=== PATIENT | male | born 1945 | race Caucasian/White ===

== ENCOUNTER 2020-03-25 10:17 | Emergency (ER) | payer MEDICARE, MEDICAID, SELFPAY ==
--- NOTE | ~2020-03-25 | XR_ITS ---
XR knee RT 3V DATE: 03/25/2020 11:51 INDICATION: Generalized pain, swelling for 2 weeks TECHNIQUE: 4 views including crosstable lateral COMPARISON: None FINDINGS: No fracture or dislocation, periosteal reaction or bone destruction or joint effusion is ev ident. No radiopaque intra-articular loose body or chondral calcinosis. Joint spaces are relatively p reserved. IMPRESSION: No significant radiographic abnormality Reviewed, dictated and finalized at location A.
--- NOTE | ~2020-03-25 | US_ITS ---
EXAMINATION: US venous doppler LE EXAM DATE: 03/25/2020 11:43 INDICATION: Bilateral calf pain. TECHNIQUE: Multiple grayscale, color flow and Doppler images of the lower extremity deep venous syste ms bilaterally were obtained and reviewed. Comparison is made to prior examination from 04/04/2018. FINDINGS: Right side: The right common femoral, femoral and profunda veins demonstrate normal color flow, respi ratory variation, augmentation and compressibility. Compressibility, color flow confirmed within the right popliteal, posterior tibial, peroneal, and greater saphenous veins. Lemos's cyst measuring 4. 0 x 0.6 x 2.3 cm. Left side: The left common femoral, femoral and profunda veins demonstrate normal color flow, respira tory variation, augmentation and compressibility. Compressibility, color flow confirmed within the l eft popliteal, posterior tibial, peroneal, and greater saphenous veins. IMPRESSION: 1. No lower extremity deep venous thrombosis bilaterally. Reviewed, dictated and finalized at location G.
[2020-03-25 10:48] VITALS: BP 172/100; PULSE 62; RESP 20; TEMP 36.7; O2SAT 98
--- NOTE | 2020-03-25 11:06 | ED.EXTPRO ---
HPI - Extremity Problem General Chief complaint: Extremity Problem,Nontraumatic Stated complaint: right knee pain Time Seen by Provider: 03/25/20 10:55 Source: patient Mode of arrival: ambulatory Limitations: no limitations History of Present Illness HPI Narrative: 74-year-old man comes in today complaining of right medial knee pain and right calf pain that has been present for last 2 weeks. Patient denies any injury. He has had no swelling, fever, chills, or prior similar episodes. He has had no respiratory complaints, sick contacts or recent travel. His history of rheumatoid arthritis and a family history of DVTs. MD Complaint: extremity pain Onset (ago): week(s) (2) Pain Consistency: constant Location: right, knee and other (calf) Quality: aching and sharp Radiation: none Relieving factors: rest Exacerbating factors: range of motion, weight bearing and palpation Associated symptoms: denies other symptoms Context: history of gout Related Data Home Medications Medication Instructions Recorded Confirmed allopurinol 300 mg PO DAILY 03/25/20 03/25/20 aspirin [Adult Low Dose Aspirin] 81 mg PO DAILY 03/25/20 03/25/20 calcitriol 0.25 mcg PO EVERY OTHER DAY 03/25/20 03/25/20 carvedilol 25 mg PO BID 03/25/20 03/25/20 clopidogrel 75 mg PO DAILY 03/25/20 03/25/20 furosemide 40 mg PO DAILY 03/25/20 03/25/20 melatonin 10 mg PO HS PRN 03/25/20 03/25/20 mirtazapine 15 mg PO PRN PRN 03/25/20 03/25/20 montelukast 10 mg PO DAILY 03/25/20 03/25/20 pravastatin 40 mg PO DAILY 03/25/20 03/25/20 tamsulosin 0.4 mg PO DAILY 03/25/20 03/25/20 telmisartan 40 mg PO DAILY 03/25/20 03/25/20 triamcinolone acetonide 0.1 % TOPICAL DAILY 03/25/20 03/25/20 vitamin B complex [B 1 tablet PO DAILY 03/25/20 03/25/20 Complex-Vitamin B12] Allergies Allergy/AdvReac Type Severity Reaction Status Date / Time No Known Allergies Allergy Unverified 04/03/18 22:31 Review of Systems Constitutional: Constitutional: Denies chills, Denies fatigue and Denies fever(s) Eyes: Eyes: Denies change in vision and Denies photophobia ENT: Denies dysphagia, Denies nasal congestion and Denies sore throat Cardiovascular: Cardiovascular: Denies chest pain and Denies radiating jaw, neck or arm pain Respiratory: Respiratory: Denies cough, Denies dyspnea and Denies wheezing Gastrointestinal: Gastrointestinal: Denies abdominal pain, Denies nausea and Denies vomiting Genitourinary: Genitourinary: Denies hematuria, Denies dysuria and Denies urinary frequency Musculoskeletal: Musculoskeletal: Reports as per HPI, Reports arthralgias and Denies joint swelling Integumentary/Breasts: Skin/Breast: Denies pruritus, Denies erythema and Denies rash Neurologic: Denies vertigo, Denies dizziness and Denies numbness Psychiatric: Psychiatric: Denies anxiety and Denies depression Endocrine: Endocrine: Denies polydipsia and Denies polyuria Hematologic/Lymphatic: Hematologic/Lymphatic: Denies easy bleeding and Denies easy bruising Allergic/Immunologic: Allergic/Immunologic: Denies lip swelling and Denies wheezing PMFSH Past Medical History Medical History Congestive heart failure Coronary artery disease Gout Hypertension Polycystic kidney disease Rheumatoid arthritis Surgical History Surgical History H/O inguinal hernia repair History of coronary artery stent placement Family History Family History (Updated 07/26/14 @ 07:13 by DOCTOR UNKNOWN) Mother Hypertension Family history of lung cancer Family history of coronary artery disease Sibling Family history of polycystic kidney disease Father Family history of elevated blood lipids Family history of coronary artery disease Patient's father is Social History Social History Smoking status: Never smoker Alcohol intake: c
[2020-03-25 11:17] LABS: Basophils Absolute Auto 0.03 K/mm3 (0.00-0.10); Basophils Percent Auto 0.3 % (0.0-1.0); Eosinophils Percent Auto 4.5 % (1.0-6.0); Hematocrit 34.5 % (37.0-46.0); Hemoglobin 10.9 g/dL (12.4-15.3); Immature Granulocyte Absolute 0.07 K/mm3 (0.00-0.00); Immature Granulocyte Percent A 0.8 % (0.0-0.0); Lymphocytes Absolute Auto 0.99 K/mm3 (1.10-4.50); Mean Corpuscular HGB Conc 31.6 g/dL (32.0-36.0); Mean Corpuscular Hemoglobin 30.1 pg (27.0-31.0); Mean Corpuscular Volume 95.3 fL (78.0-102.0); Mean Platelet Volume 9.4 fl (8.7-11.0); Monocytes Absolute Auto 0.67 K/mm3 (0.10-0.90); Monocytes Percent Auto 7.5 % (2.0-11.0); Neutrophils Absolute Auto 6.8 K/mm3 (1.7-7.2); Neutrophils Percent Auto 75.9 % (50.0-70.0); Platelet Count Result 165 K/mm3 (150-420); Red Blood Count 3.62 M/mm3 (4.70-6.10); Red Cell Distribution Width 14.7 % (11.6-14.4)
[2020-03-25] MEDS: ACETAMINOPHEN 500 MG TABLET 1000 MG PO (11:28)
[2020-03-25 11:36] LABS: Alanine Aminotransferase 18 U/L (16-63); Albumin Level 3.1 g/dL (3.4-5.0); Alkaline Phosphatase 90 U/L (46-116); Aspartate Amino Transferase 15 U/L (15-37); Bilirubin,Total 0.2 mg/dL (0.00-1.00); Blood Urea Nitrogen 37 mg/dL (7-18); CRP 1.5 mg/dL (0.0-0.9); Calcium 8.3 mg/dL (8.5-10.1); Carbon Dioxide 31 mmol/L (21-32); Estimated Glomerular Filt Rate 27; Glucose 103 mg/dL (70-99); Total Protein 6.6 g/dL (6.4-8.2)
[2020-03-25 11:38] LABS: Partial Thromboplastin Time 26.2 SEC (22.3-31.6); Prothrombin Time 10.7 Seconds (9.64-11.0)
[2020-03-25 11:48] LABS: Anion Gap 9.7 mmol/L (7-16); Chloride 108 mmol/L (98-108); Osmolality Calculated 306 mOsm/kg (285-295); Potassium 4.7 mmol/L (3.5-5.1); Sodium 144 mmol/L (136-145)
[2020-03-25 12:19] LABS: Erythrocyte Sedimentation Rate 32 mm/hr (0-20)
[2020-03-25 12:31] VITALS: RESP 16
[2020-03-28 13:35] LABS: Uric Acid 5.7 mg/dL (3.5-7.2)
== END 2020-03-25 12:28 | disposition home or self-care (01) ==
PROVIDERS: Emergency Provider Emergency Medicine; PCP Internal Medicine
DX: M25.561 Pain in right knee (principal); I50.9 Heart failure, unspecified; I25.10 Atherosclerotic heart disease of native coronary artery without angina pectoris; I10 Essential (primary) hypertension; M06.9 Rheumatoid arthritis, unspecified; M79.661 Pain in right lower leg; M10.9 Gout, unspecified
CPT/HCPCS: 36415; 73562; 80053; 84550; 85025; 85610; 85652; 85730; 86140; 93970; 99283; 99284

== ENCOUNTER 2020-04-06 07:56 | Outpatient (CLI) | payer MEDICARE, MEDICAID, SELFPAY ==
--- NOTE | ~2020-04-06 | MR_ITS ---
EXAMINATION: MR knee RT wo con DATE: 04/06/2020 09:13 INDICATION: Right knee pain and swelling. TECHNIQUE: Magnetic resonance imaging (MRI) of the right knee was performed without intravenous contr ast. Sequences included axial PD-weighted FS FSE, coronal PD-weighted FSE and PD-weighted FS FSE, sag ittal PD-weighted FSE, and sagittal T2-weighted FS FSE. COMPARISON: Right knee radiographs 03/25/2020 FINDINGS: Medial compartment: There is a complex tear involving body and posterior horn of medial meniscus. There is cartilage surf dirk irregularity of tibial condyle and femoral condyle. There is a subchondral insufficiency fracture of medial tibial condyle with low signal fracture line and surrounding bone marrow edema. There are tiny osteophytes. Lateral compartment: Lateral meniscus is normal. Lateral compartment cartilage is normal. Patellofemoral compartment: There is cartilage surface irregularity of patella and trochlea. Ligaments and tendons: Anterior and posterior cruciate ligaments are normal. Medial collateral ligament is intact. There are changes of prior sprain of fibular collateral ligament characterized by thickening and increased sig nal intensity. There is mild patellar tendinopathy. Fluid: There is a small knee joint effusion. There is a large Lemos's cyst. There is moderate prepatellar an d superficial infrapatellar bursitis. IMPRESSION: 1. Subchondral insufficiency fracture of medial tibial condyle. 2. Mild chondrosis of medial and patellofemoral compartments. 3. Complex tear of medial meniscus. 4. Small knee joint effusion. 5. Large Lemos's cyst. Reviewed, dictated and finalized at location A.
== END 2020-04-06 07:57 | disposition home or self-care (01) ==
LOC: CHSIMG 07:58
PROVIDERS: PCP Internal Medicine; Visit Provider Internal Medicine
DX: M25.561 Pain in right knee (principal); M25.461 Effusion, right knee
CPT/HCPCS: 73721

== ENCOUNTER 2020-04-15 09:30 | Outpatient (RCR) | payer MEDICARE, MEDICAID, SELFPAY | END 2020-04-17 23:59 | disposition home or self-care (01) | LOC: CHSSENLIFE 09:30 | PROVIDERS: PCP Internal Medicine; Visit Provider Psychiatry & Neurology Psychiatry | DX: F33.1 Major depressive disorder, recurrent, moderate (principal) | CPT/HCPCS: 36415; 73562; 80053; 84550; 85025; 85610; 85652; 85730; 86140; 90792; 90834; 90837; 90853; 93970; 99213; 99214; 99283; 99284; G0463 ==

== ENCOUNTER 2020-04-25 15:13 | Outpatient (RCR) | payer MEDICARE, MEDICAID, SELFPAY | END 2020-07-24 23:59 | disposition home or self-care (01) | LOC: CHSSENLIFE 15:13 | PROVIDERS: PCP Internal Medicine; Visit Provider Psychiatry & Neurology Psychiatry | DX: F33.1 Major depressive disorder, recurrent, moderate (principal) | CPT/HCPCS: 90837; 90853; 99213; 99214; G0463 ==

== ENCOUNTER 2020-05-10 10:39 | Emergency (ER) | payer MEDICARE, MEDICAID, SELFPAY ==
--- NOTE | ~2020-05-10 | CT_ITS ---
EXAMINATION: CT brain wo con DATE: 05/10/2020 12:00 INDICATION: Headache. Dizziness. Head injury. TECHNIQUE: Computed tomography (CT) of the head was performed without intravenous contrast. The mA wa s adjusted according to patient size. Iterative reconstruction technique was employed. The dose-lengt h product was 681.00 mGy-cm. COMPARISON: Head CT 08/18/2017 FINDINGS: There is an old lacunar infarct versus prominent perivascular space in the right basal gang wendy. There is a prominent perihippocampal fissure cyst on the left. There is no intracranial hemorrha ge, acute infarction, or abnormal intracranial mass lesion. The ventricles are normal in size. There is near complete opacification of right maxillary sinus. There is mucosal thickening in the other par anasal sinuses. The mastoid air cells are normal. The orbits are normal. IMPRESSION: 1. Unchanged old lacunar infarct versus prominent perivascular space in the right basal ganglia. Reviewed, dictated and finalized at location E. IMPRESSION: 1. Unchanged old lacunar infarct versus prominent perivascular space in the rig ht basal ganglia.
--- NOTE | ~2020-05-10 | XR_ITS ---
EXAMINATION: XR chest 2V DATE: 05/10/2020 12:01 INDICATION: Dizziness. TECHNIQUE: Frontal and lateral views of the chest were obtained. COMPARISON: Chest 2 views 06/28/2019 FINDINGS: A calcified left lung nodule is consistent with old granulomatous disease. No pleural effus ion or pneumothorax. The heart size is normal. IMPRESSION: 1. No acute cardiopulmonary disease. Reviewed, dictated and finalized at location E.
[2020-05-10 11:00] VITALS: BP 150/94; PULSE 79; RESP 18; TEMP 36.5; O2SAT 96
--- NOTE | 2020-05-10 11:09 | ED.DIZZY ---
HPI - Dizziness General Chief Complaint: Dizziness Stated Complaint: Dizzy, head hurts, Fell hit his head, nausea Time Seen by Provider: 05/10/20 11:09 Source: patient Mode of arrival: ambulatory Limitations: no limitations History of Present Illness HPI Narrative: 75-year-old man with a history of coronary artery disease, CHF, rheumatoid arthritis, and chronic renal failure comes to the ER complaining of lightheadedness particularly with change in position. Patient states that last night he climbed stairs to his attic and at the top of the stairs she felt lightheaded, fell and struck his head on a beam. He states he lost consciousness briefly. he has had no nausea, vomiting, chest pain, shortness of breath, abdominal pain or change in activity or diet. The lightheadedness with position change continues. MD elicited complaint: lightheadedness Pertinent past history: recent head injury Onset (ago): hour(s) (16) Timing: intermittent Severity: moderate Description: lightheadedness and near-syncope History of similar symptoms: No Exacerbating factors: change in body position and standing Relieving factors: rest and lying down Related Data Home Medications Medication Instructions Recorded Confirmed allopurinol 300 mg PO DAILY 03/25/20 05/10/20 aspirin [Adult Low Dose Aspirin] 81 mg PO DAILY 03/25/20 05/10/20 calcitriol 0.25 mcg PO EVERY OTHER DAY 03/25/20 05/10/20 carvedilol 25 mg PO BID 03/25/20 05/10/20 clopidogrel 75 mg PO DAILY 03/25/20 05/10/20 montelukast 10 mg PO DAILY 03/25/20 05/10/20 pravastatin 40 mg PO DAILY 03/25/20 05/10/20 tamsulosin 0.4 mg PO DAILY 03/25/20 05/10/20 vitamin B complex [B 1 tablet PO DAILY 03/25/20 05/10/20 Complex-Vitamin B12] citalopram 20 mg PO DAILY 05/10/20 05/10/20 furosemide 20 mg PO DAILY 05/10/20 05/10/20 nitroglycerin 0.4 mg SUBLINGUAL PRN PRN 05/10/20 05/10/20 prednisone 2.5 mg PO DAILY 05/10/20 05/10/20 Allergies Allergy/AdvReac Type Severity Reaction Status Date / Time No Known Allergies Allergy Unverified 04/03/18 22:31 Review of Systems Constitutional: Constitutional: Denies chills and Denies fever(s) Eyes: Eyes: Denies change in vision and Denies photophobia ENT: Denies dysphagia, Denies nasal congestion and Denies sore throat Cardiovascular: Cardiovascular: Denies chest pain and Denies radiating jaw, neck or arm pain Respiratory: Respiratory: Denies cough, Denies dyspnea and Denies wheezing Gastrointestinal: Gastrointestinal: Denies abdominal pain, Denies nausea and Denies vomiting Genitourinary: Genitourinary: Denies hematuria, Denies oliguria and Denies dysuria Musculoskeletal: Musculoskeletal: Denies back pain, Denies arthralgias and Denies joint swelling Integumentary/Breasts: Skin/Breast: Denies pruritus, Denies erythema and Denies rash Neurologic: Denies vertigo, Denies dizziness and Denies syncope Endocrine: Endocrine: Denies polydipsia and Denies polyuria Hematologic/Lymphatic: Hematologic/Lymphatic: Denies easy bleeding and Denies easy bruising Allergic/Immunologic: Allergic/Immunologic: Denies lip swelling and Denies wheezing PMFSH Family History Family History (Updated 07/26/14 @ 07:13 by DOCTOR UNKNOWN) Mother Hypertension Family history of lung cancer Family history of coronary artery disease Sibling Family history of polycystic kidney disease Father Family history of elevated blood lipids Family history of coronary artery disease Patient's father is Social History Social History Smoking status: Never smoker Alcohol intake: current Substance use: never Exam Const: General: no acute distress and alert Orientation/consciousness: patient oriented x3 Other: Pallor HENMT: Head: contusion left frontal 6 cm Ears: EAC's normal and TM abnormal Mouth: Yes Normal oral and palatal mucosa present and Yes moist mucous membranes Throat: posterior o
--- NOTE | 2020-05-10 11:10 | ECG_ITS ---
Measurements Intervals [place] Rate: 80 P: 63 TN: 200 QRS: -26 QRSD: 108 T: 78 QT: 368 QTc: 426 Interpretive Statements SINUS RHYTHM BORDERLINE AV CONDUCTION DELAY ANTERIOR INFARCT, AGE INDETERMINATE BORDERLINE ST-T WAVE ABNORMALITY- HIGH LATERAL LEADS BASELINE ARTIFACT- II, III, AVF ABNORMAL ECG Electronically Signed On 05-10-2020 11:40:42 CDT by Herve Alicia D.O.
[2020-05-10 11:15] VITALS: BP 134/78; PULSE 84
[2020-05-10 11:17] VITALS: BP 141/77; PULSE 89
[2020-05-10 11:29] LABS: Basophils Absolute Auto 0.03 K/mm3 (0.00-0.10); Basophils Percent Auto 0.3 % (0.0-1.0); Eosinophils Absolute Auto 0.09 K/mm3 (0.02-0.50); Hematocrit 34.6 % (37.0-46.0); Immature Granulocyte Percent A 2.1 % (0.0-0.0); Lymphocytes Absolute Auto 0.65 K/mm3 (1.10-4.50); Lymphocytes Percent Auto 6.9 % (18.0-42.0); Mean Corpuscular HGB Conc 31.8 g/dL (32.0-36.0); Mean Corpuscular Hemoglobin 30.8 pg (27.0-31.0); Mean Corpuscular Volume 96.9 fL (78.0-102.0); Mean Platelet Volume 9.8 fl (8.7-11.0); Monocytes Absolute Auto 0.35 K/mm3 (0.10-0.90); Monocytes Percent Auto 3.7 % (2.0-11.0); Neutrophils Absolute Auto 8.1 K/mm3 (1.7-7.2); Platelet Count Result 150 K/mm3 (150-420); Red Blood Count 3.57 M/mm3 (4.70-6.10); White Blood Count 9.5 K/mm3 (4.8-10.8)
[2020-05-10 11:41] LABS: Partial Thromboplastin Time 25.9 SEC (22.3-31.6); Prothrombin Time 10.5 Seconds (9.64-11.0)
[2020-05-10 11:48] LABS: Alanine Aminotransferase 23 U/L (16-63); Albumin Level 3.2 g/dL (3.4-5.0); Alkaline Phosphatase 89 U/L (46-116); Anion Gap 8.9 mmol/L (7-16); Aspartate Amino Transferase 21 U/L (15-37); Bilirubin,Total 0.2 mg/dL (0.00-1.00); Blood Urea Nitrogen 50 mg/dL (7-18); Calcium 8.6 mg/dL (8.5-10.1); Carbon Dioxide 33 mmol/L (21-32); Chloride 106 mmol/L (98-108); Estimated CRCL calculation 23 ml/min; Estimated Glomerular Filt Rate 21; Glucose 108 mg/dL (70-99); Osmolality Calculated 312 mOsm/kg (285-295); Potassium 3.9 mmol/L (3.5-5.1); Sodium 144 mmol/L (136-145); Total Protein 6.7 g/dL (6.4-8.2)
[2020-05-10 11:49] LABS: CRP 1.3 mg/dL (0.0-0.9); Lactic Acid 1.4 mmol/L (0.4-2.0)
[2020-05-10 11:49] LABS: Add Urine Microscopic? YES; Appearance Urine Clear (Clear); Bilirubin Urine Negative (Negative); Blood Urine Negative (Negative); Color Urine Yellow (Yellow); Glucose Urine UA Negative (Negative); Ketones Urine Negative (Negative); Leukocyte Esterase Ur Negative LEU/UL (Negative); Nitrate Urine Negative (Negative); Protein Urine Trace (Negative); Specific Grav Ur 1.025 (1.010-1.020); Urobilinogen Urine 0.2 mg/dL (0.2-1.0); pH Urine 5.5 (5.0-8.0)
[2020-05-10 11:50] LABS: Troponin I 1.52 ng/mL (0.00-0.056)
[2020-05-10 11:54] LABS: Bacteria Urine 1+ /hpf; RBC Urine 0-2 /hpf (0-2); Squamous Epithelial Cell Urine None seen /hpf (Few); WBC Urine 0-3 /hpf (0-3)
[2020-05-10 11:55] LABS: Mucus Urine Heavy /lpf
--- NOTE | 2020-05-10 11:57 | PC.NURSE ---
[facility] contacted to speak with pts performance improvement consultant.
--- NOTE | 2020-05-10 12:27 | PC.NURSE ---
Dr. bass speaking with dr. august
[2020-05-10 12:53] VITALS: BP 152/95; PULSE 78; RESP 20; O2SAT 96
--- NOTE | 2020-05-10 13:45 | PC.NURSE ---
Pt to go to room [facility] at [facility]
[2020-05-10 13:53] VITALS: BP 153/95; PULSE 95; RESP 16; O2SAT 97
[2020-05-10 14:22] VITALS: PULSE 72; RESP 16
== END 2020-05-10 14:24 | disposition short-term general hospital (02) ==
PROVIDERS: Emergency Provider Emergency Medicine; PCP Internal Medicine
DX: R79.9 Abnormal finding of blood chemistry, unspecified (principal); R55 Syncope and collapse
CPT/HCPCS: 36415; 70450; 71046; 80053; 81001; 83605; 84484; 85025; 85610; 85730; 86140; 93005; 99285

== ENCOUNTER 2020-05-10 15:00 | Inpatient (IN) | payer MEDICARE, MEDICAID, SELFPAY ==
[2020-05-10] VITALS (13 sets, daily range): BP systolic 117–184; BP diastolic 54–106; PULSE 65–79; RESP 18–97; TEMP 36–36.1; O2SAT 18–98; BMI 33.3
--- NOTE | ~2020-05-10 | NM_ITS ---
EXAMINATION: NM dario stress w perfusion DATE: 05/13/2020 10:08 INDICATION: Coronary atherosclerosis. TECHNIQUE: Rest images were obtained following intravenous administration of 9.66 mCi Tc99m tetrofosm in (Myoview). The patient was infused intravenously with Lexiscan (regadenoson). Then, 30.2 mCi Tc99m tetrofosmin (Myoview) was administered intravenously, and stress images were obtained. Data was lokesh nstructed into short axis and horizontal and vertical long axis SPECT images. Gated SPECT images were also obtained. COMPARISON: Myocardial perfusion imaging 04/06/2016 FINDINGS: There is a large, severe, fixed perfusion defect involving left ventricular apex, the apica l segments, and mid anteroseptal and mid inferoseptal segments, consistent with infarct. No reversibl e component to suggest ischemia. There is global hypokinesis. Left ventricular ejection fraction me asures 40%. IMPRESSION: 1. Large area severe infarct involving left ventricular apex, the apical segments, and mid anterosept al and mid inferoseptal segments, new from 04/06/16. 2. Global hypokinesis left ventricular ejection fraction measuring 40%, worsened from 04/06/16. Reviewed, dictated and finalized at location A. IMPRESSION: 1. Large area severe infarct involving left ventricular apex, the apical segmen ts, and mid anteroseptal and mid inferoseptal segments, new from 04/06/16. 2. Global hypokinesis left ventricular ejection fraction measuring 40%, worsene d from 04/06/16.
--- NOTE | ~2020-05-10 | US_ITS ---
EXAMINATION: US carotid duplex BI DATE: 05/11/2020 13:26 INDICATION: Near syncope. TECHNIQUE: Grayscale, color Doppler, and pulsed Doppler images of the cervical carotid arteries were obtained. The degree of vessel stenosis is placed in one of the following categories: normal, <50%, 5 0-69%, >=70% but less than near-occlusion, near-occlusion, or total occlusion. Note that percent sten osis relative to normal distal artery lumen diameter is indirectly measured from velocity measurement s as described by Sunday, et al. Radiology 2003; [id number]. COMPARISON: None. FINDINGS: RIGHT: The right common carotid artery (CCA) peak systolic velocity (PSV) is 62 cm/s. The right internal car otid artery (ICA) PSV is 79 cm/s. The right ICA end-diastolic velocity (EDV) is 21 cm/s. The right IC A/CCA PSV ratio is 1.3. Grayscale and color Doppler images yield an estimate of <50% diameter reducti on from plaque in the ICA. There is antegrade flow in the right vertebral artery. LEFT: The left CCA PSV is 73 cm/s. The left ICA PSV is 264 cm/s. The left ICA EDV is 62 cm/s. The left ICA/ CCA PSV ratio is 3.6. Grayscale and color Doppler images yield an estimate of <50% diameter reduction from plaque in the ICA. There is antegrade flow in the left vertebral artery. IMPRESSION: 1. <50% stenosis in the right internal carotid artery. 2. <50% stenosis in the left internal carotid artery. Reviewed, dictated and finalized at location A.
--- NOTE | 2020-05-10 15:16 | ADMGEN ---
This patient, Armen Escalante, was admitted to IMU Room 232-01 on 05/10/20 at 1505. Patient/family oriented to hospital policies and general routines including ID bracelet, bed and alarms, visiting hours, pain management, procedures, bathroom and other care routines, personal items, smoking policy, room service/diet, and visiting hours. Valuables list has been completed. Information on how to activate the Rapid Response Team has been discussed. Patient/Family are encouraged to report perceived risks to care and to ask questions if they do not understand what they are told or what they should do.
--- NOTE | 2020-05-10 16:02 | PM.CNCAR ---
Assessment and Plan Assessment and plan (1) Elevated troponin: Code(s): R79.89 - Other specified abnormal findings of blood chemistry Status: Acute Assessment and Plan: Elevated troponins. They are higher than I would typically see in summary with renal insufficiency but he really has no clinical syndrome that would indicate occlude plaque rupture. His EKG also does not show anything acute. Regardless will continue to trend with serial cardiac enzymes. Continue aspirin, carvedilol, clopidogrel, pravastatin, telmisartan. 2D echocardiogram Doppler will be ordered Telemetry monitoring P.r.n. nitroglycerin 0.4 mg sublingual will be ordered (2) Syncope: Qualifiers: Syncope type: unspecified Qualified Code(s): R55 - Syncope and collapse Code(s): R55 - Syncope and collapse Status: Acute Assessment and Plan: ? Etiology. Some of his symptoms sound orthostatic. Will therefore check orthostatic blood pressure. May need to hold tamsulosin also Also very important to note that he has recently been taken off steroids.? Adrenal insufficiency. Will defer to the hospitalist for complete workup but obviously he may need some stress dose steroids or at least adrenal workup. (3) Hypertension: Code(s): I10 - Essential (primary) hypertension Status: Acute Assessment and Plan: At goal (4) Polycystic kidney disease: Code(s): Q61.3 - Polycystic kidney, unspecified Status: Acute Assessment and Plan: Acute on chronic (5) Congestive heart failure: Code(s): I50.9 - Heart failure, unspecified Status: Acute Assessment and Plan: Compensated (6) Coronary artery disease: Code(s): I25.10 - Atherosclerotic heart disease of torres martinez coronary artery without angina pectoris Status: Acute Assessment and Plan: As detailed above History of Present Illness History of Present Illness Consult date/time: 05/10/20 16:02 Requesting physician: Preston Hatfield MD Consult reason: Other (Elevated troponin) Reason For Visit: nstemi Narrative: Reason consultation: Elevated troponin Date of service 05/10/2020 History: Patient is a 75-year-old male who does have a presumed coronary artery disease history. He sees Dr. Escamilla as an outpatient. He has a history of bare metal stent in the LAD in 1996. He also has diastolic heart failure rheumatoid arthritis polycystic kidney disease. He had a non-STEMI in 2018 but did not pursue outpatient follow-up at that time. In 2019 he presented [facility] with a non-STEMI. Due to his elevated troponins and multiple risk factors cardiac catheterization was advised but he declined. He did undergo a stress test as an outpatient which was abnormal. Catheterization was again scheduled but then later canceled. There has been some issues with regards to his renal function and some concern about renal insufficiency being worsened by IV dye also. He did see our nurse practitioner back in November. At that time some medications were adjusted. He had been feeling okay until a couple weeks ago. He has not been feeling his normal self but especially yesterday he had a significant issue in which she got up and went up some steps in turn his whole body to the right and the next thing he remembers is hitting his head. He has been lightheaded and dizzy most of the day and feeling weak. He hit his head on a beam felt weak and dizzy when standing up. Today he went to his daughter's house. He had a [address] and got out of his car and took a few steps and became very weak and dizzy again. He sat down and felt better but later was doing more activity unloading boxes and still felt poorly. Therefore he went to the emergency department and for unknown reasons a troponin was drawn. Troponin was elevated and he was subsequent transferred here to [facility] for further evaluation. Patient actually denies a
[2020-05-10] MEDS: ACETAMINOPHEN 325 MG TABLET 650 MG PO (17:51)
--- NOTE | 2020-05-10 19:00 | PM.IMHP ---
H&P: HPI History of Present Illness Chief complaint: Near-syncope and elevated troponins. <Cassie Parker PA-C - Last Filed: 05/10/20 22:11> Narrative: Armen Escalante is a 75-year-old male with coronary artery disease, obstructive sleep apnea, chronic kidney disease, polycystic kidney disease, benign prostatic hypertrophy, rheumatoid arthritis, and borderline diabetes who is being directly admitted to the hospitalist service from the emergency department at [facility] for further evaluation of near-syncope and elevated troponins. Over the years he has been on daily prednisone for treatment of rheumatoid arthritis in addition to a chronic dermatitis. After input from multiple of his specialists, it was decided that it would be best for him to come off of prednisone and he was prescribed a taper on 04/01/2020. He did follow the tapering regimen but does admit that he stopped it early ?because I was feeling just fine? and it has been just about a week since his last dose of prednisone. Prior to the taper, he was taking 20 milligram tablets of prednisone twice a day for what sounds like years. In any regard, he has had intermittent dizziness not long after standing for about 6 days, with increasing frequency the last 2 days. For instance, yesterday afternoon he got up from where he had been sitting on the couch for a couple of hours, walked up a flight of stairs, and entered an attic bedroom to hang something on the wall. He suddenly became very dizzy and he fell forward into an attic beam, striking his head and landing on his left knee. He was able to get himself up, walked down the steps, and went back to resting on the couch. He had 2 other similar occurrences of near syncopal episodes today and thus went to the emergency department at [facility] in [place] for evaluation. There he was found to have an increase in his creatinine level from baseline as well as a mild troponin elevation, and thus he was transferred to [place] for further evaluation and consultation with his manager company. With further questioning, he does mention that occasionally he will double up on his furosemide dose, and has done so several times this week due to noticeable decrease in urine output. Apparently he has been instructed to do so by his beer merchant in [place]. His appetite has been as per usual. The patient has no complaints at the time my evaluation or dizzy when up walking since he has been in the hospital. He denies extreme fatigue, weight changes, change in appetite, hyper pigmentation, nausea, vomiting, diarrhea, and abdominal pain. He also denies chest pain, palpitations, pleuritic pain, shortness of breath, and diaphoresis. Of note, the patient was admitted to the hospital in May 2019 with a non STEMI, and at that time he was advised to have a cardiac catheterization however declined due to his worsening renal function. Instead it was decided to treat him medically, and he has not had issues with chest pain since that time. <Cassie Parker PA-C - Last Filed: 05/10/20 22:11> Review of Systems Review of Systems: Narrative: Twelve systems were reviewed with pertinent positives and negatives as per HPI. No fever, chills, or sweats. He denies recent cold and flu symptoms. No dysuria or hematuria. He has noticed a bit of a decrease in urine output. He denies symptoms of BPH, but will on occasion get up 1 time at night to urinate. He has a right knee meniscal tear for which she is wearing a brace. Except as documented, all other systems were reviewed and are negative. <Cassie Parker PA-C - Last Filed: 05/10/20 22:11> [facility] Past Medical History Medical History: Medical History (Updated 05/11/20 @ 00:00 by Background Daemon) Anemia of chronic disease Chronic dermatitis Chronic kidney disease, stage 4 (severe) Baseline creatinine appears to be around 2.30. He is followed by beer merchant in [place].
[2020-05-10 22:34] LABS: Blood Urea Nitrogen 56 mg/dL (9-20); Calcium 8.7 mg/dL (8.4-10.2); Carbon Dioxide 30 mmol/L (22-30); Chloride 102 mmol/L (98-107); Creatine Kinase 72 U/L (55-170); Estimated CRCL calculation 26 ml/min; Estimated Glomerular Filt Rate 23; Glucose 172 mg/dL (75-110); Magnesium 2.2 mg/dL (1.6-2.3); Phosphorus 3.7 mg/dL (2.5-4.5); Potassium 4.1 mmol/L (3.4-5.0); Sodium 138 mmol/L (137-145)
[2020-05-10] MEDS: SODIUM CHLORIDE 0.9% IV 1,000 ML 100 ML IV CONT (23:14)
[2020-05-10] MEDS: carvediloL 25 MG TABLET PO (23:21)
[2020-05-10] MEDS: PRAVASTATIN SODIUM 20 MG TABLET 40 MG PO (23:21)
[2020-05-10] MEDS: MIRTAZAPINE 15 MG TABLET PO (23:22)
[2020-05-10] MEDS: CITALOPRAM HYDROBROMIDE 20 MG TABLET PO (23:22)
[2020-05-10] MEDS: TAMSULOSIN HCL 0.4 MG CAPSULE PO (23:22)
[2020-05-11] VITALS (20 sets, daily range): BP systolic 133–178; BP diastolic 78–91; PULSE 60–78; RESP 15–20; TEMP 35.7–36.4; O2SAT 94–98
--- NOTE | 2020-05-11 | ECHO_ITS ---
Patient Info Name: Armen Escalante Age: 75 years : 1945 Gender: Male Ht: 68 in Wt: 219 lbs BSA: 2.22 m2 HR: 62 bpm BP: 166 / 91 mmHg Heart Rhythm: Sinus Rhythm Technical Quality: Good Exam Date: 05/11/2020 7:49 AM Exam Location: [facility] Pulmonary Exam Room: 232 Patient Status: Inpatient Admit Date: 05/10/2020 Staff Ordering Physician: Stanley Robertson MD Transfer Driver: Tanya Pan RDCS Attending Provider: Preston Hatfield MD Referring Physician: Marcelo ORTIZ; Exam Type: CA echo doppler color flow Study Info Indications - syncope collaspe elevated trops cad Complete two-dimensional, color flow and Doppler transthoracic echocardiogram is performed. Summary 1. Left ventricular chamber dimension is mildly enlarged. 2. Left ventricular systolic function is mildly reduced, estimated at 45-50%. 3. There is mildly increased left ventricular wall thickness. 4. The left ventricular diastolic function is grade I diastolic dysfunction. 5. Global longitudinal strain is abnormal at -11 %. 6. The mid anteroseptal is akinetic. 7. The apex, anterior wall, and mid inferoseptal are hypokinetic. 8. Left atrial chamber dimension is mildly enlarged. 9. There is moderate mitral valve regurgitation. 10. There is mild tricuspid valve regurgitation. 11. Mild pulmonary hypertension, estimated pulmonary arterial systolic pressure is 43 mmHg. 12. There is mild pulmonic regurgitation. Left Ventricle Left ventricular chamber dimension is mildly enlarged. Left ventricular systolic function is mildly reduced, estimated at 45-50%. There is mildly increased left ventricular wall thickness. The left ventricular diastolic function is grade I diastolic dysfunction. Global longitudinal strain is abnormal at -11 %. The mid anteroseptal is akinetic. The apex, anterior wall, and mid inferoseptal are hypokinetic. All other ann appear normal. Right Ventricle Right ventricular chamber dimension is normal. Right ventricular systolic function is normal. Left Atria Left atrial chamber dimension is mildly enlarged. Right Atria Right atrial chamber dimension is normal. Atrial Septum Intact interatrial septum visualized by color flow imaging. Aortic Valve The aortic valve is trileaflet. There is mild aortic valve sclerosis. There is no aortic valve stenosis. There is trace aortic valve regurgitation. Pulmonic Valve The pulmonic valve is normal. There is no pulmonic valve stenosis. There is mild pulmonic regurgitation. Mitral Valve The mitral valve has thickened leaflets. There is no mitral valve stenosis. There is moderate mitral valve regurgitation. Tricuspid Valve The tricuspid valve leaflets are normal. There is no significant tricuspid valve stenosis. There is mild tricuspid valve regurgitation. Mild pulmonary hypertension, estimated pulmonary arterial systolic pressure is 43 mmHg. Pericardium/Pleural The pericardium appears normal. There is no pericardial effusion. Inferior Vena Cava Dilated inferior vena cava with >50% collapse upon inspiration consistent with elevated right atrial pressure, 10 mmHg. Aorta The aortic root size at the sinus of Valsalva is normal. The prox ascending aorta size is normal. Left Ventricular Outflow Tract Name Value Normal
[2020-05-11 06:21] LABS: Cortisol Baseline 8.62 ug/dL
[2020-05-11 06:40] LABS: Thyroid Stimulating Hormone Reflex 0.572 uIU/mL (0.465-4.68)
[2020-05-11] MEDS: allopurinoL 300 MG TABLET PO (09:04)
[2020-05-11] MEDS: VITAMIN B COMPLEX CAPSULE 1 CAP PO (09:04)
[2020-05-11] MEDS: carvediloL 25 MG TABLET PO ×2 (09:04→22:16)
[2020-05-11] MEDS: MONTELUKAST SODIUM 10 MG TABLET PO (09:04)
[2020-05-11] MEDS: FUROSEMIDE 20 MG TABLET PO (09:04)
[2020-05-11] MEDS: ASPIRIN 81 MG ENTERIC TABLET PO (09:05)
[2020-05-11] MEDS: CLOPIDOGREL BISULFATE 75 MG TABLET PO (09:05)
[2020-05-11] MEDS: ACETAMINOPHEN 325 MG TABLET 650 MG PO ×2 (09:08→21:15)
--- NOTE | 2020-05-11 10:45 | PM.PNCARD ---
Progress Note: A&P Assessment and Plan (1) Elevated troponin: Code(s): R79.89 - Other specified abnormal findings of blood chemistry Status: Inactive Assessment and Plan: Elevated troponins. They are higher than I would typically see in summary with renal insufficiency but he really has no clinical syndrome that would indicate occlude plaque rupture. His EKG also does not show anything acute. Regardless will continue to trend with serial cardiac enzymes. Continue aspirin, carvedilol, clopidogrel, pravastatin, telmisartan. echo pending Telemetry monitoring feels better at this point. Probably needs a repeat stress test as an outpatient. Given his renal function though a cardiac catheterization will be deferred unless it is absolutely necessary (2) Syncope: Qualifiers: Syncope type: unspecified Qualified Code(s): R55 - Syncope and collapse Code(s): R55 - Syncope and collapse Status: Inactive Assessment and Plan: ? Etiology. Some of his symptoms sound orthostatic. Will therefore check orthostatic blood pressure. May need to hold tamsulosin also . Outpatient pattern fitter is ordered agree with fluids. Symptoms of better. (3) Hypertension: Code(s): I10 - Essential (primary) hypertension Status: Acute Assessment and Plan: At goal (4) Polycystic kidney disease: Code(s): Q61.3 - Polycystic kidney, unspecified Status: Acute Assessment and Plan: Acute on chronic . ? Dehydrated (5) Congestive heart failure: Code(s): I50.9 - Heart failure, unspecified Status: Acute Assessment and Plan: Compensated (6) Coronary artery disease: Code(s): I25.10 - Atherosclerotic heart disease of [place] coronary artery without angina pectoris Status: Acute Assessment and Plan: As detailed above Possibly home today or tomorrow. He should mobilize and see how he feels. Subjective Date/time seen: 05/11/20 10:45 Interval history: chief complaint: Dizziness, passing out Date of service 05/11/2020: Feels great today. No chest pain or shortness of breath. Not dizzy walking Review of Systems Review of Systems: All systems reviewed & are unremarkable except as noted in HPI and below Constitutional: Constitutional: Denies fatigue, Denies headache(s), Reports lethargy and Reports weakness Eyes: Eyes: Denies blurry vision ENT: Reports Normal hearing present, Denies headache(s), Denies lip swelling and Denies neck pain Cardiovascular: Cardiovascular: Denies chest pain, Reports lightheadedness and Denies dyspnea Respiratory: Respiratory: Denies dyspnea Gastrointestinal: Gastrointestinal: Denies abdominal pain and Denies bloating Genitourinary: Genitourinary: Denies dysuria and Denies urinary frequency Musculoskeletal: Musculoskeletal: Denies back pain, Denies neck pain and Denies numbness Integumentary/Breasts: Skin/Breast: Denies dry skin Neurologic: Reports Normal hearing present, Denies confusion, Denies headache(s), Denies numbness and Reports weakness Psychiatric: Psychiatric: Denies anxiety and Denies confusion Endocrine: Endocrine: Denies fatigue and Denies flushing Hematologic/Lymphatic: Hematologic/Lymphatic: Denies easy bleeding Allergic/Immunologic: Allergic/Immunologic: Denies GI upset with certain foods and Denies lip swelling Exam Narrative: Exam Narrative: Alert and oriented appears of stated age Const: General: no acute distress; No confusion Orientation/consciousness: No confusion HENMT: General nose exam: Normal nares present Eyes: Pupils: pupils not ERRL Neck: Neck: supple and no JVD Chest: Other: No reproducible chest wall pain to palpation Resp: Auscultation: clear to auscultation bilaterally Cardio: Rate: regular rate Rhythm: regular rhythm Skin: General skin exam: normal color Other: Abrasion noted to his left upper scalp Neuro: General: No
[2020-05-11] MEDS: predniSONE 20 MG TABLET PO ×2 (13:25→22:16)
--- NOTE | 2020-05-11 15:49 | PC.NURSE ---
This patient, Armen Escalante, was transferred to [facility] on 05/11/20 at 1539. Personal belongings sent with patient. Report given to Griselda JOHNSON. Appropriate documentation sent with patient.
--- NOTE | 2020-05-11 15:59 | PC.NURSE ---
Patient received from IMU. Report given to Katherine from IMU nurse. Patient oriented to room.
--- NOTE | 2020-05-11 17:09 | PM.IMPN ---
Progress Note: A&P Assessment and Plan (1) Near syncope: Code(s): R55 - Syncope and collapse Status: Acute Assessment and Plan: History consistent with orthostatic hypotension as he is probably a bit on the dry side due to doubling up on his furosemide. Adrenal insufficiency should be considered as well as he did not finish his prednisone taper after being on long-term prednisone. Will continue to monitor on telemetry and check orthostatic vital signs Q shift. Initiate fall precautions. Random cortisol level in a.m. will hold on cosyntropin stimulation test at this time as no electrolyte abnormalities. Echocardiogram and carotid Doppler ultrasounds have also been ordered for further evaluation. 05/11/20 17:09 Patient is 75-year-old male with history of chronic kidney disease hypertension and rheumatoid arthritis as well as chronic dermatitis for which patient had been taking prednisone on and off for last 5 years, patient did not like the side effects of chronic prednisone he had discussed with his primary care doctor and they both had decided to taper the is prednisone slowly from 50 mg b.i.d. patient was taking 20 mg b.i.d. he felt fine and decided to stop taking prednisone before completing tapering dose however he does state that on and off he fell dizzy and yesterday while at home he was trying to hang something in the attic and patient fell and landed on his forehead patient was taken to the emergency department at [facility] we was found to have elevated tropes and syncopal episode he was [facility] evaluation, patient is seen by public health professor reviewed his elevated tropes does not suspect the patient has acute coronary syndrome with a plaque rupture most likely secondary to chronic kidney disease as well as stress from taking off prednisone, and there is no further ischemic workup is recommended, to further evaluate syncopal episode patient had carotid ultrasound which is essentially normal less than 50% stenosis, he had a cardiac echo patient does show mildly reduced ejection fraction to 45%, after discussing with the patient most likely patient syncopal episodes and hypotension may be related to prematurity discontinuation of steroid, patient has agreed to restart prednisone at 20 mg b.i.d. and once clinically stable will discharge the patient home tomorrow and he will follow-up his with primary care doctor to taper his prednisone and further recommendation to follow (2) Elevated troponin: Code(s): R79.89 - Other specified abnormal findings of blood chemistry Status: Inactive Assessment and Plan: Troponins have remained flat and given the fact he never had chest pain, these are likely elevated in the setting of his chronic renal failure. Dr. Robertson has seen the patient and he has ordered an echocardiogram for further evaluation. His consult is appreciated. Continue aspirin, clopidogrel, beta-carolann, and statin. (3) Acute worsening of stage 4 chronic kidney disease: Code(s): N18.4 - Chronic kidney disease, stage 4 (severe) Status: Acute Assessment and Plan: I think perhaps he is a bit over diuresed, as he will occasionally double up on his furosemide as detailed above. Will give a liter of normal saline overnight and repeat renal function in a.m. (4) Congestive heart failure: Code(s): I50.9 - Heart failure, unspecified Status: Acute Assessment and Plan: Clinically compensated. Monitor volume status closely with daily weights and strict I/O. (5) Hypertension: Code(s): I10 - Essential (primary) hypertension Status: Acute Assessment and Plan: Blood pressures did drop with orthostatic vital signs, rep
[2020-05-11] MEDS: MIRTAZAPINE 15 MG TABLET PO (22:16)
[2020-05-11] MEDS: PRAVASTATIN SODIUM 20 MG TABLET 40 MG PO (22:16)
[2020-05-11] MEDS: TAMSULOSIN HCL 0.4 MG CAPSULE PO (22:16)
[2020-05-11] MEDS: CITALOPRAM HYDROBROMIDE 20 MG TABLET PO (22:17)
[2020-05-12] VITALS (14 sets, daily range): BP systolic 158–192; BP diastolic 76–102; PULSE 62–67; RESP 12–20; TEMP 36.1–36.7; O2SAT 95–100
[2020-05-12] MEDS: ACETAMINOPHEN 325 MG TABLET 650 MG PO (08:50)
[2020-05-12] MEDS: FUROSEMIDE 20 MG TABLET PO (08:51)
[2020-05-12] MEDS: CLOPIDOGREL BISULFATE 75 MG TABLET PO (08:51)
[2020-05-12] MEDS: MONTELUKAST SODIUM 10 MG TABLET PO (08:51)
[2020-05-12] MEDS: allopurinoL 300 MG TABLET PO (08:51)
[2020-05-12] MEDS: ASPIRIN 81 MG ENTERIC TABLET PO (08:51)
[2020-05-12] MEDS: VITAMIN B COMPLEX CAPSULE 1 CAP PO (08:51)
[2020-05-12] MEDS: calcitrioL 0.25 MCG CAPSULE PO (08:52)
[2020-05-12] MEDS: predniSONE 20 MG TABLET PO ×2 (08:52→17:05)
[2020-05-12] MEDS: carvediloL 25 MG TABLET PO ×2 (08:52→21:24)
[2020-05-12 09:54] LABS: Hematocrit 33.2 % (42.0-52.0); Hemoglobin 10.6 g/dL (14.0-18.0); Mean Corpuscular HGB Conc 31.9 g/dl (32-36); Mean Corpuscular Hemoglobin 30.5 pg (26-34); Mean Corpuscular Volume 95.4 fl (80-100); Mean Platelet Volume 10.1 fl (7.4-10.4); Platelet Count Result 175 k/mm3 (150-375); Red Blood Count 3.48 M/mm3 (4.6-6.20); Red Cell Distribution Width 15.8 % (11.5-14.5); White Blood Count 12.3 K/mm3 (4.5-10.0)
[2020-05-12 10:12] LABS: Alanine Aminotransferase 20 U/L (4-50); Albumin Level 3.9 g/dL (3.5-5.1); Alkaline Phosphatase 74 U/L (38-126); Aspartate Amino Transferase 23 U/L (17-59); Bilirubin,Total 0.3 mg/dL (0.2-1.3); Blood Urea Nitrogen 45 mg/dL (9-20); Calcium 8.5 mg/dL (8.4-10.2); Carbon Dioxide 26 mmol/L (22-30); Chloride 104 mmol/L (98-107); Estimated CRCL calculation 32 ml/min; Estimated Glomerular Filt Rate 29; Glucose 297 mg/dL (75-110); Potassium 4.8 mmol/L (3.4-5.0); Sodium 136 mmol/L (137-145)
--- NOTE | 2020-05-12 10:31 | PM.PNCARD ---
Progress Note: A&P Assessment and Plan (1) Elevated troponin: Code(s): R79.89 - Other specified abnormal findings of blood chemistry Status: Inactive Assessment and Plan: Elevated troponins. They are higher than I would typically see in summary with renal insufficiency but he really has no clinical syndrome that would indicate occlude plaque rupture. His EKG also does not show anything acute. Regardless will continue to trend with serial cardiac enzymes. Continue aspirin, carvedilol, clopidogrel, pravastatin, telmisartan. echo pending Telemetry monitoring feels better at this point. will keep for Lexiscan perfusion today tomorrow. Given his renal function though a cardiac catheterization will be deferred unless it is absolutely necessary (2) Syncope: Qualifiers: Syncope type: unspecified Qualified Code(s): R55 - Syncope and collapse Code(s): R55 - Syncope and collapse Status: Inactive Assessment and Plan: ? Etiology. Some of his symptoms sound orthostatic. Will therefore check orthostatic blood pressure. May need to hold tamsulosin also . Outpatient personnel monitor is ordered Symptoms of better. (3) Hypertension: Code(s): I10 - Essential (primary) hypertension Status: Acute Assessment and Plan: At goal (4) Polycystic kidney disease: Code(s): Q61.3 - Polycystic kidney, unspecified Status: Acute Assessment and Plan: Acute on chronic . ? Dehydrated (5) Congestive heart failure: Code(s): I50.9 - Heart failure, unspecified Status: Acute Assessment and Plan: Compensated (6) Coronary artery disease: Code(s): I25.10 - Atherosclerotic heart disease of [place] coronary artery without angina pectoris Status: Acute Assessment and Plan: As detailed above He should mobilize and see how he feels. Subjective Date/time seen: 05/12/20 10:31 Interval history: chief complaint: Dizziness, passing out Date of service 05/12/2020: Feels great today. No chest pain or shortness of breath. No dizziness Review of Systems Review of Systems: All systems reviewed & are unremarkable except as noted in HPI and below Constitutional: Constitutional: Denies fatigue, Denies headache(s), Reports lethargy and Reports weakness Eyes: Eyes: Denies blurry vision ENT: Reports Normal hearing present, Denies headache(s), Denies lip swelling and Denies neck pain Cardiovascular: Cardiovascular: Denies chest pain, Reports lightheadedness and Denies dyspnea Respiratory: Respiratory: Denies dyspnea Gastrointestinal: Gastrointestinal: Denies abdominal pain and Denies bloating Genitourinary: Genitourinary: Denies dysuria and Denies urinary frequency Musculoskeletal: Musculoskeletal: Denies back pain, Denies neck pain and Denies numbness Integumentary/Breasts: Skin/Breast: Denies dry skin Neurologic: Reports Normal hearing present, Denies confusion, Denies headache(s), Denies numbness and Reports weakness Psychiatric: Psychiatric: Denies anxiety and Denies confusion Endocrine: Endocrine: Denies fatigue and Denies flushing Hematologic/Lymphatic: Hematologic/Lymphatic: Denies easy bleeding Allergic/Immunologic: Allergic/Immunologic: Denies GI upset with certain foods and Denies lip swelling Exam Narrative: Exam Narrative: Alert and oriented appears of stated age Const: General: no acute distress; No confusion Orientation/consciousness: No confusion HENMT: General nose exam: Normal nares present Eyes: Pupils: pupils not ERRL Neck: Neck: supple and no JVD Chest: Other: No reproducible chest wall pain to palpation Resp: Auscultation: clear to auscultation bilaterally Cardio: Rate: regular rate Rhythm: regular rhythm Skin: General skin exam: normal color Other: Abrasion noted to his left upper scalp Neuro: General: No confusion Cranial nerves: No Equal, round and reactive pupils pres
--- NOTE | 2020-05-12 10:57 | PM.DS ---
DS: Admitting Diagnosis Admitting Diagnosis Admitting Diagnosis: Other specified abnormal findings of blood chemistry DS: Summary Time Spent with Patient Time attestation: Total time spent providing and/or coordinating discharge services: DS: Data Data Completed and Pending Labs on day of discharge: Labs from last 24 hours 05/12/20 05/12/20 09:41 09:41 WBC 12.3 H RBC 3.48 L Hgb 10.6 L Hct 33.2 L MCV 95.4 MCH 30.5 MCHC 31.9 L RDW 15.8 H Plt Count 175 MPV 10.1 Sodium 136 L Potassium 4.8 Chloride 104 Carbon Dioxide 26 BUN 45 H D Creatinine 2.20 H Estim Creat Clear Calc 32 Estimated GFR 29 L Glucose 297 H Calcium 8.5 Total Bilirubin 0.3 AST 23 ALT 20 Alkaline Phosphatase 74 Total Protein 7.0 Albumin 3.9 Discharge Plan Discharge Attending physician on discharge: Preston Hatfield Consulting providers: Stanley Robertson Discharging Clinician: Preston Hatfield Patient Disposition: Home, Self-Care Activity: no driving and as tolerated Diet: heart healthy Discharge Instructions: Patient to call his primary care provider in the morning as we have restarted him on his prednisone, which needs to be tapered, patient has agreed not to reduce his prednisone until he has seen primary care provider, patient should not drive until seen by primary care provider, patient to follow up with his primer waterproofing machine adjuster as scheduled. patient is instructed if any symptoms redevelop to go to nearest ER. Patient Instructions: Antibiotic Form Stand Alone Forms: General Discharge Information Follow-up/Referrals: Stanley Robertson MD [Physician] - Discharge Medications: New prednisone 20 mg Tablet 20 mg PO BID Qty: 14 RF: 0 Continued carvedilol 25 mg tablet 25 mg PO BID RF: 0 pravastatin 40 mg tablet 40 mg PO HS RF: 0 clopidogrel 75 mg tablet 75 mg PO DAILY RF: 0 aspirin [Adult Low Dose Aspirin] 81 mg Tablet,Delayed Release (Dr/Ec) 81 mg PO DAILY RF: 0 tamsulosin 0.4 mg capsule 0.4 mg PO HS RF: 0 vitamin B complex [B Complex-Vitamin B12] Tablet 1 tablet PO DAILY RF: 0 montelukast 10 mg tablet 10 mg PO DAILY RF: 0 allopurinol 300 mg tablet 300 mg PO DAILY RF: 0 calcitriol 0.25 mcg capsule 0.25 mcg PO EVERY OTHER DAY RF: 0 citalopram 20 mg tablet 20 mg PO DAILY RF: 0 nitroglycerin 0.4 mg tablet, sublingual 0.4 mg sublingual PRN PRN (Reason: Chest Pain) RF: 0 furosemide 20 mg tablet 20 mg PO DAILY RF: 0 telmisartan 40 mg Tablet 40 mg PO DAILY RF: 0 mirtazapine 15 mg tablet 15 mg PO HS RF: 0 Date of admission: 05/10/20 15:00 Primary Care Provider: Truong Alonso Admitting Provider: Preston Hatfield Attending physician on admission: Preston Hatfield Quality VTE Prophylaxis VTE prophylaxis: mechanical ordered
--- NOTE | 2020-05-12 17:10 | PM.IMPN ---
Progress Note: A&P Assessment and Plan (1) Near syncope: Code(s): R55 - Syncope and collapse Status: Acute Assessment and Plan: History consistent with orthostatic hypotension as he is probably a bit on the dry side due to doubling up on his furosemide. Adrenal insufficiency should be considered as well as he did not finish his prednisone taper after being on long-term prednisone. Will continue to monitor on telemetry and check orthostatic vital signs Q shift. Initiate fall precautions. Random cortisol level in a.m. will hold on cosyntropin stimulation test at this time as no electrolyte abnormalities. Echocardiogram and carotid Doppler ultrasounds have also been ordered for further evaluation. 05/12/20 17:10 Patient is 75-year-old male with history of chronic kidney disease hypertension and rheumatoid arthritis as well as chronic dermatitis for which patient had been taking prednisone on and off for last 5 years, patient did not like the side effects of chronic prednisone he had discussed with his primary care doctor and they both had decided to taper the is prednisone slowly from 50 mg b.i.d. patient was taking 20 mg b.i.d. he felt fine and decided to stop taking prednisone before completing tapering dose however he does state that on and off he fell dizzy and yesterday while at home he was trying to hang something in the attic and patient fell and landed on his forehead patient was taken to the emergency department at [facility] we was found to have elevated tropes and syncopal episode he was transferred [facility] for further evaluation, patient is seen by principal java developer reviewed his elevated tropes does not suspect the patient has acute coronary syndrome with a plaque rupture most likely secondary to chronic kidney disease as well as stress from taking off prednisone, and there is no further ischemic workup is recommended, to further evaluate syncopal episode patient had carotid ultrasound which is essentially normal less than 50% stenosis, he had a cardiac echo patient does show mildly reduced ejection fraction to 45%, after discussing with the patient most likely patient syncopal episodes and hypotension may be related to prematurity discontinuation of steroid, patient has agreed to restart prednisone at 20 mg b.i.d. and once clinically stable will discharge the patient home tomorrow and he will follow-up his with primary care doctor to taper his prednisone and further recommendation to follow, today patient is feeling better denies any chest pain shortness of breath disease patient was seen by Cardiology and recommended the patient will benefit from getting Lexiscan stress test to further evaluate his chest pain, elevated tropes and dizziness, will follow-up on the test tomorrow and further recommendation to follow (2) Elevated troponin: Code(s): R79.89 - Other specified abnormal findings of blood chemistry Status: Inactive Assessment and Plan: Troponins have remained flat and given the fact he never had chest pain, these are likely elevated in the setting of his chronic renal failure. Dr. Robertson has seen the patient and he has ordered an echocardiogram for further evaluation. His consult is appreciated. Continue aspirin, clopidogrel, beta-carolann, and statin. (3) Acute worsening of stage 4 chronic kidney disease: Code(s): N18.4 - Chronic kidney disease, stage 4 (severe) Status: Acute Assessment and Plan: I think perhaps he is a bit over diuresed, as he will occasionally double up on his furosemide as detailed above. Will give a liter of normal saline overnight and repeat renal function in a.m. (4) Congestive heart failure: Code(s): I50.9 - Heart failure, unspecified Status: Acute Assessment and Plan: Clinically compensated. Monitor volume status clos
[2020-05-12] MEDS: CITALOPRAM HYDROBROMIDE 20 MG TABLET PO (21:24)
[2020-05-12] MEDS: MIRTAZAPINE 15 MG TABLET PO (21:24)
[2020-05-12] MEDS: TAMSULOSIN HCL 0.4 MG CAPSULE PO (21:24)
[2020-05-12] MEDS: PRAVASTATIN SODIUM 20 MG TABLET 40 MG PO (21:24)
[2020-05-12] MEDS: hydrALAZINE HCL 20 MG/ML VIAL 10 MG IV PUSH (22:44)
[2020-05-13] VITALS (14 sets, daily range): BP systolic 135–190; BP diastolic 80–108; PULSE 63–72; RESP 14–18; TEMP 36.2–36.7; O2SAT 97–100
[2020-05-13] MEDS: hydrALAZINE HCL 20 MG/ML VIAL 10 MG IV PUSH ×2 (05:42→23:16)
[2020-05-13 06:18] LABS: Hematocrit 33.8 % (42.0-52.0); Hemoglobin 10.7 g/dL (14.0-18.0); Mean Corpuscular HGB Conc 31.7 g/dl (32-36); Mean Corpuscular Hemoglobin 30.6 pg (26-34); Mean Corpuscular Volume 96.6 fl (80-100); Mean Platelet Volume 10.2 fl (7.4-10.4); Platelet Count Result 166 k/mm3 (150-375); Red Cell Distribution Width 15.9 % (11.5-14.5); White Blood Count 14.8 K/mm3 (4.5-10.0)
[2020-05-13 07:34] LABS: Alanine Aminotransferase 16 U/L (4-50); Albumin Level 3.7 g/dL (3.5-5.1); Alkaline Phosphatase 69 U/L (38-126); Aspartate Amino Transferase 17 U/L (17-59); Bilirubin,Total 0.1 mg/dL (0.2-1.3); Blood Urea Nitrogen 47 mg/dL (9-20); Calcium 8.8 mg/dL (8.4-10.2); Carbon Dioxide 26 mmol/L (22-30); Chloride 107 mmol/L (98-107); Estimated CRCL calculation 32 ml/min; Estimated Glomerular Filt Rate 29; Glucose 149 mg/dL (75-110); Potassium 4.5 mmol/L (3.4-5.0); Sodium 140 mmol/L (137-145)
--- NOTE | 2020-05-13 07:35 | PC.NURSE ---
0735 To [employer] via wheelchair.
--- NOTE | 2020-05-13 09:41 | PM.PNCARD ---
Progress Note: A&P Assessment and Plan (1) Elevated troponin: Code(s): R79.89 - Other specified abnormal findings of blood chemistry Status: Inactive Assessment and Plan: Elevated troponins. They are higher than I would typically see in summary with renal insufficiency but he really has no clinical syndrome that would indicate occlude plaque rupture. His EKG also does not show anything acute. Troponin peak 1.6 1 Continue aspirin, carvedilol, clopidogrel, pravastatin, telmisartan. Given his renal function though a cardiac catheterization will be deferred unless it is absolutely necessary Lexiscan pending. (2) Syncope: Qualifiers: Syncope type: unspecified Qualified Code(s): R55 - Syncope and collapse Code(s): R55 - Syncope and collapse Status: Inactive Assessment and Plan: ? Etiology. Some of his symptoms sound orthostatic. Does have a 20 mm drop in his blood pressure but is significantly hypertensive at rest. May need to hold tamsulosin also . Outpatient threat monitoring analyst will be arranged. No dizziness today. Symptoms are better (3) Hypertension: Qualifiers: Hypertension type: essential hypertension Qualified Code(s): I10 - Essential (primary) hypertension Code(s): I10 - Essential (primary) hypertension Status: Acute Assessment and Plan: Not at goal. Orthostatic as above. (4) Polycystic kidney disease: Code(s): Q61.3 - Polycystic kidney, unspecified Status: Acute Assessment and Plan: Acute on chronic . ? Dehydrated. Creatinine now at baseline. (5) Congestive heart failure: Code(s): I50.9 - Heart failure, unspecified Status: Acute Assessment and Plan: Compensated Echo will be checked (6) Coronary artery disease: Qualifiers: Coronary Disease-Associated Artery/Lesion type: chilkoot artery [place] vs. transplanted heart: chilkoot heart Associated angina: without angina Qualified Code(s): I25.10 - Atherosclerotic heart disease of chilkoot coronary artery without angina pectoris Code(s): I25.10 - Atherosclerotic heart disease of chilkoot coronary artery without angina pectoris Status: Acute Assessment and Plan: As detailed above He should mobilize and see how he feels. Additional Plan Plan discussed with Dr Escamilla [id number] 05/13/2020 Time Spent With Patient Time with patient: 15 - 25 minutes Subjective Date/time seen: 05/13/20 09:00 seen in stress lab Interval history: Follow-up for: Dizziness, passing out Date of service 05/13/2020 Subjective: Seen in [facility] bridge dental lab technician. No chest discomfort. Denied shortness of breath or dizziness. Has a headache today. Review of Systems Constitutional: Constitutional: Denies fatigue, Denies headache(s), Reports lethargy and Reports weakness Eyes: Eyes: Denies blurry vision ENT: Reports Normal hearing present, Denies headache(s), Denies lip swelling and Denies neck pain Cardiovascular: Cardiovascular: Denies chest pain, Denies lightheadedness and Denies dyspnea Respiratory: Respiratory: Denies dyspnea Gastrointestinal: Gastrointestinal: Denies abdominal pain and Denies bloating Genitourinary: Genitourinary: Denies dysuria and Denies urinary frequency Musculoskeletal: Musculoskeletal: Denies back pain, Denies neck pain and Denies numbness Integumentary/Breasts: Skin/Breast: Denies dry skin Neurologic: Reports Normal hearing present, Denies confusion, Denies headache(s), Denies numbness and Reports weakness Psychiatric: Psychiatric: Denies anxiety and Denies confusion Endocrine: Endocrine: Denies fatigue and Denies flushing Hematologic/Lymphatic: Hematologic/Lymphatic: Denies easy bleeding Allergic/Immunologic: Allergic/Immun
--- NOTE | 2020-05-13 10:00 | PC.NURSE ---
Returned from [facility] via wheelchair.
[2020-05-13] MEDS: allopurinoL 300 MG TABLET PO (10:01)
[2020-05-13] MEDS: FUROSEMIDE 20 MG TABLET PO (10:02)
[2020-05-13] MEDS: ASPIRIN 81 MG ENTERIC TABLET PO (10:02)
[2020-05-13] MEDS: carvediloL 25 MG TABLET PO ×2 (10:02→20:29)
[2020-05-13] MEDS: predniSONE 20 MG TABLET PO ×2 (10:04→16:46)
[2020-05-13] MEDS: VITAMIN B COMPLEX CAPSULE 1 CAP PO (10:04)
[2020-05-13] MEDS: CLOPIDOGREL BISULFATE 75 MG TABLET PO (10:05)
[2020-05-13] MEDS: MONTELUKAST SODIUM 10 MG TABLET PO (10:05)
--- NOTE | 2020-05-13 10:33 | EST_ITS ---
Patient Info Name: Armen Escalante Age: 75 years : 1945 Gender: Male Ht: 68 in Wt: 227 lbs BSA: 2.26 m2 Heart Rhythm: Sinus Rhythm Exam Date: 05/13/2020 8:32 AM Exam Location: [facility] Stress Patient Status: Inpatient Admit Date: 05/10/2020 Staff Ordering Physician: Stanley Robertson MD Attending Provider: Preston Hatfield MD Exercise Technologist: Odalys Alvarado RDCS Nurse: Marily Ibarra ANP, ACNP-BC Exam Type: CA stress dario w NM Study Info Indications I25.110 - Atherosclerotic heart disease of pala coronary artery with unstable angina pectoris A regadenoson stress test was performed. Summary 1. No arrhythmias were observed during the stress portion of the examination. 2. Nondiagnostic ECG changes compared to baseline. 3. No stress-induced chest pain. 4. Please correlate with nuclear medicine images, reported separately. Protocol: Lexiscan Stress ECG Details Stage: REST Duration (min): 1 min : 45 sec HR (bpm): 65 SBP (mmHg): 191 DBP (mmHg): 116 Stage: REST Duration (min): 3 min : 11 sec HR (bpm): 62 SBP (mmHg): 191 DBP (mmHg): 116 Stage: REST Duration (min): 16 min : 54 sec HR (bpm): 63 SBP (mmHg): 191 DBP (mmHg): 116 Stage: REST Duration (min): 19 min : 43 sec HR (bpm): 66 SBP (mmHg): 174 DBP (mmHg): 119 Stage: STAGE 1 Duration (min): 1 min : 0 sec HR (bpm): 73 SBP (mmHg): 181 DBP (mmHg): 113 Stage: RECOVERY Duration (min): 1 min : 0 sec HR (bpm): 80 SBP (mmHg): 143 DBP (mmHg): 103 Stage: RECOVERY Duration (min): 2 min : 0 sec HR (bpm): 80 SBP (mmHg): 143 DBP (mmHg): 103 Stage: RECOVERY Duration (min): 3 min : 0 sec HR (bpm): 79 SBP (mmHg): 158 DBP (mmHg): 105 Stage: RECOVERY Duration (min): 3 min : 4 sec HR (bpm): 79 SBP (mmHg): 158 DBP (mmHg): 105 Rest HR: 66 bpm Peak HR: 82 bpm Rest Sys BP: 174 mmHg Peak Sys BP: 181 mmHg Max Pred HR: 147 bpm % Max Pred HR: 56 % Target HR: 125 bpm Max RPP: 14,842 bpm*mmHg Target HR Summary: Hemodynamic response to exercise was normal BP Response: Normal blood pressure response Termination Reason: Completed protocol Cardiac Symptoms: None Total Time: 1 min : 0 sec Rest Duron BP: 119 mmHg Peak Duron BP: 113 mmHg Total Dose: 0.4 mg Resting ECG Normal sinus rhythm. Nonspecific ST abnormality, PVC. Stress ECG Nondiagnostic ECG changes compared to baseline. Arrhythmias No arrhythmias were observed during the stress portion of the examination. Report Signatures
--- NOTE | 2020-05-13 18:35 | PM.IMPN ---
Progress Note: A&P Assessment and Plan (1) Near syncope: Code(s): R55 - Syncope and collapse Status: Acute Assessment and Plan: History consistent with orthostatic hypotension as he is probably a bit on the dry side due to doubling up on his furosemide. Adrenal insufficiency should be considered as well as he did not finish his prednisone taper after being on long-term prednisone. Will continue to monitor on telemetry and check orthostatic vital signs Q shift. Initiate fall precautions. Random cortisol level in a.m. will hold on cosyntropin stimulation test at this time as no electrolyte abnormalities. Echocardiogram and carotid Doppler ultrasounds have also been ordered for further evaluation. 05/13/20 18:35 Patient is 75-year-old male with history of chronic kidney disease hypertension and rheumatoid arthritis as well as chronic dermatitis for which patient had been taking prednisone on and off for last 5 years, patient did not like the side effects of chronic prednisone he had discussed with his primary care doctor and they both had decided to taper the is prednisone slowly from 50 mg b.i.d. patient was taking 20 mg b.i.d. he felt fine and decided to stop taking prednisone before completing tapering dose however he does state that on and off he fell dizzy and yesterday while at home he was trying to hang something in the attic and patient fell and landed on his forehead patient was taken to the emergency department at [facility] we was found to have elevated tropes and syncopal episode he was transferred [facility] for further evaluation, patient is seen by classified advertising supervisor reviewed his elevated tropes does not suspect the patient has acute coronary syndrome with a plaque rupture most likely secondary to chronic kidney disease as well as stress from taking off prednisone, and there is no further ischemic workup is recommended, to further evaluate syncopal episode patient had carotid ultrasound which is essentially normal less than 50% stenosis, he had a cardiac echo patient does show mildly reduced ejection fraction to 45%, after discussing with the patient most likely patient syncopal episodes and hypotension may be related to prematurity discontinuation of steroid, patient has agreed to restart prednisone at 20 mg b.i.d. and once clinically stable will discharge the patient home tomorrow and he will follow-up his with primary care doctor to taper his prednisone and further recommendation to follow, today patient is feeling better denies any chest pain shortness of breath disease patient was seen by Cardiology and recommended the patient will benefit from getting Lexiscan stress test to further evaluate his chest pain, elevated tropes and dizziness, will follow-up on the test tomorrow and further recommendation to follow, patient had a Lexiscan today which showed patient is significant cardiac injury however patient with a cystic kidney disease and chronic kidney disease is not a candidate for cardiac catheterization and this will cause more harm to his kidney and may need dialysis in the future, patient is clinically stable seen by classified advertising supervisor will discharge the patient home tomorrow (2) Elevated troponin: Code(s): R79.89 - Other specified abnormal findings of blood chemistry Status: Inactive Assessment and Plan: Troponins have remained flat and given the fact he never had chest pain, these are likely elevated in the setting of his chronic renal failure. Dr. Robertson has seen the patient and he has ordered an echocardiogram for further evaluation. His consult is appreciated. Continue aspirin, clopidogrel, beta-carolann, and statin. (3) Acute worsening of stage 4 chronic kidney disease: Code(s): N18.4 - Chronic kidney disease, stage 4 (severe) Status: Acute Assessment and Plan: I think perhaps he is a bit over diuresed, as he will occasional
[2020-05-13] MEDS: PRAVASTATIN SODIUM 20 MG TABLET 40 MG PO (20:28)
[2020-05-13] MEDS: TAMSULOSIN HCL 0.4 MG CAPSULE PO (20:29)
[2020-05-13] MEDS: MIRTAZAPINE 15 MG TABLET PO (20:29)
[2020-05-13] MEDS: CITALOPRAM HYDROBROMIDE 20 MG TABLET PO (20:29)
[2020-05-14 01:18] VITALS: PULSE 71; RESP 14; O2SAT 98
[2020-05-14 05:43] VITALS: BP 150/92; PULSE 65; RESP 16; TEMP 36.5; O2SAT 97
[2020-05-14 06:30] LABS: Hematocrit 36.1 % (42.0-52.0); Hemoglobin 11.2 g/dL (14.0-18.0); Mean Corpuscular Hemoglobin 30.2 pg (26-34); Mean Corpuscular Volume 97.3 fl (80-100); Mean Platelet Volume 10.3 fl (7.4-10.4); Platelet Count Result 181 k/mm3 (150-375); Red Blood Count 3.71 M/mm3 (4.6-6.20); Red Cell Distribution Width 16.4 % (11.5-14.5); White Blood Count 13.8 K/mm3 (4.5-10.0)
[2020-05-14 06:53] LABS: Alanine Aminotransferase 16 U/L (4-50); Albumin Level 3.7 g/dL (3.5-5.1); Alkaline Phosphatase 71 U/L (38-126); Aspartate Amino Transferase 18 U/L (17-59); Bilirubin,Total 0.1 mg/dL (0.2-1.3); Blood Urea Nitrogen 47 mg/dL (9-20); Calcium 8.6 mg/dL (8.4-10.2); Carbon Dioxide 29 mmol/L (22-30); Chloride 104 mmol/L (98-107); Estimated CRCL calculation 33 ml/min; Estimated Glomerular Filt Rate 31; Glucose 114 mg/dL (75-110); Potassium 4.5 mmol/L (3.4-5.0); Sodium 138 mmol/L (137-145)
[2020-05-14] MEDS: allopurinoL 300 MG TABLET PO (07:58)
[2020-05-14 08:00] VITALS: PULSE 65
[2020-05-14] MEDS: calcitrioL 0.25 MCG CAPSULE PO (08:00)
[2020-05-14] MEDS: predniSONE 20 MG TABLET PO (08:00)
[2020-05-14] MEDS: MONTELUKAST SODIUM 10 MG TABLET PO (08:00)
[2020-05-14] MEDS: FUROSEMIDE 20 MG TABLET PO (08:00)
[2020-05-14] MEDS: CLOPIDOGREL BISULFATE 75 MG TABLET PO (08:00)
[2020-05-14] MEDS: carvediloL 25 MG TABLET PO (08:00)
[2020-05-14] MEDS: ASPIRIN 81 MG ENTERIC TABLET PO (08:01)
[2020-05-14] MEDS: VITAMIN B COMPLEX CAPSULE 1 CAP PO (08:01)
--- NOTE | 2020-05-14 10:27 | PM.DS ---
DS: Admitting Diagnosis Admitting Diagnosis Admitting Diagnosis: Syncope and collapse DS: Discharge Diagnosis Discharge Diagnosis (1) Near syncope: Code(s): R55 - Syncope and collapse Status: Acute Assessment and Plan: History consistent with orthostatic hypotension as he is probably a bit on the dry side due to doubling up on his furosemide. Adrenal insufficiency should be considered as well as he did not finish his prednisone taper after being on long-term prednisone. Will continue to monitor on telemetry and check orthostatic vital signs Q shift. Initiate fall precautions. Random cortisol level in a.m. will hold on cosyntropin stimulation test at this time as no electrolyte abnormalities. Echocardiogram and carotid Doppler ultrasounds have also been ordered for further evaluation. 05/13/20 18:35 Patient is 75-year-old male with history of chronic kidney disease hypertension and rheumatoid arthritis as well as chronic dermatitis for which patient had been taking prednisone on and off for last 5 years, patient did not like the side effects of chronic prednisone he had discussed with his primary care doctor and they both had decided to taper the is prednisone slowly from 50 mg b.i.d. patient was taking 20 mg b.i.d. he felt fine and decided to stop taking prednisone before completing tapering dose however he does state that on and off he fell dizzy and yesterday while at home he was trying to hang something in the attic and patient fell and landed on his forehead patient was taken to the emergency department at [facility] we was found to have elevated tropes and syncopal episode he was transferred [facility] for further evaluation, patient is seen by hearing aid consultant reviewed his elevated tropes does not suspect the patient has acute coronary syndrome with a plaque rupture most likely secondary to chronic kidney disease as well as stress from taking off prednisone, and there is no further ischemic workup is recommended, to further evaluate syncopal episode patient had carotid ultrasound which is essentially normal less than 50% stenosis, he had a cardiac echo patient does show mildly reduced ejection fraction to 45%, after discussing with the patient most likely patient syncopal episodes and hypotension may be related to prematurity discontinuation of steroid, patient has agreed to restart prednisone at 20 mg b.i.d. and once clinically stable will discharge the patient home tomorrow and he will follow-up his with primary care doctor to taper his prednisone and further recommendation to follow, today patient is feeling better denies any chest pain shortness of breath disease patient was seen by Cardiology and recommended the patient will benefit from getting Lexiscan stress test to further evaluate his chest pain, elevated tropes and dizziness, will follow-up on the test tomorrow and further recommendation to follow, patient had a Lexiscan today which showed patient is significant cardiac injury however patient with a cystic kidney disease and chronic kidney disease is not a candidate for cardiac catheterization and this will cause more harm to his kidney and may need dialysis in the future, patient is clinically stable seen by hearing aid consultant will discharge the patient home tomorrow (2) Elevated troponin: Code(s): R79.89 - Other specified abnormal findings of blood chemistry Status: Inactive Assessment and Plan: Troponins have remained flat and given the fact he never had chest pain, these are likely elevated in the setting of his chronic renal failure. Dr. Robertson has seen the patient and he has ordered an echocardiogram for further evaluation. His consult is appreciated. Continue aspirin, clopidogrel, beta-carolann, and statin. (3) Acute worsening of stage 4 chronic kidney disease: Code(s): N18.4 - Chronic kidney disease, stage 4 (severe) Status: Acute
== END 2020-05-14 10:00 | disposition home or self-care (01) | DRG 312 ==
LOC: ANHIMU 05-11 00:19 → ANH3MED 05-11 15:39
PROVIDERS: Internal Medicine Cardiovascular Disease; Physician Assistant; Admitting Provider Family Medicine; PCP Internal Medicine; Visit Provider Family Medicine
DX: I95.1 Orthostatic hypotension (principal); I13.0 Hypertensive heart and chronic kidney disease with heart failure and stage 1 through stage 4 chronic kidney disease, or unspecified chronic kidney disease; I50.32 Chronic diastolic (congestive) heart failure; Q61.3 Polycystic kidney, unspecified; N18.4 Chronic kidney disease, stage 4 (severe); T38.0X6A Underdosing of glucocorticoids and synthetic analogues, initial encounter; Y63.8 Failure in dosage during other surgical and medical care; I25.10 Atherosclerotic heart disease of native coronary artery without angina pectoris; R79.89 Other specified abnormal findings of blood chemistry; M06.9 Rheumatoid arthritis, unspecified; G47.33 Obstructive sleep apnea (adult) (pediatric); N40.0 Benign prostatic hyperplasia without lower urinary tract symptoms; R73.03 Prediabetes; D63.1 Anemia in chronic kidney disease; M1A.9XX0 Chronic gout, unspecified, without tophus (tophi); L30.9 Dermatitis, unspecified; E78.5 Hyperlipidemia, unspecified; I25.2 Old myocardial infarction; Z79.82 Long term (current) use of aspirin; Z95.5 Presence of coronary angioplasty implant and graft; E86.0 Dehydration
CPT/HCPCS: 36415; 78452; 80048; 80053; 82533; 82550; 83735; 84100; 84443; 84484; 85027; 93017; 93306; 93880; A9270; A9502; J0360; J2785; J7030; J7512

== ENCOUNTER 2021-01-23 09:08 | Outpatient (CLI) | payer MEDICARE, MEDICAID, SELFPAY ==
--- NOTE | ~2021-01-23 | CT_ITS ---
EXAMINATION: CT abdomen pelvis wo con DATE: 01/23/2021 09:50 INDICATION: Abdominal and back pain, abdominal bloating, gurgling. Diarrhea. TECHNIQUE: Computed tomography (CT) of the abdomen and pelvis was performed without intravenous contr ast. Automated exposure control and iterative reconstruction technique were employed. Exam dose: 126 2.68 mGy-cm total exam DLP. COMPARISON: 02/27/2019 CT abdomen pelvis FINDINGS: There is chronic discoid scarring in the left lower lobe and mild dependent atelectasis or fibrotic change in the right lower lobe. Prominent coronary artery calcification. Trace pericardial effusion. Normal heart size. No pleural ef fusion. Cholelithiasis. No pericholecystic fluid or fat stranding. Borderline thickness of the gallbladder wa ll. Consider gallbladder ultrasound examination for further evaluation as clinically appropriate. A few scattered small hepatic cysts are noted. No bile duct or pancreatic duct dilatation. No pancrea tic mass lesion or calcification. Normal splenic size. Normal adrenal gland morphology. The kidneys are studded throughout with cysts of variable size, consistent with adult polycystic kidn ey disease. No urinary tract calculus or hydroureteronephrosis. The urinary bladder is unremarkable. Is prostate enlargement and calcification. Bilateral fat-containing inguinal hernias. Small fat-containing umbilical hernia. There is calcification of the abdominal aorta and prominent calcifications at the origins of the maricarmen l arteries as well as calcifications at the origins of the superior mesenteric and celiac arteries. N o abdominal aortic aneurysm. No intraperitoneal or retroperitoneal or pelvic mass lesion or adenopathy or ascites. Normal appendix. There are numerous diverticula of the sigmoid and descending colon. A diverticulum i s identified in the proximal transverse colon. There is no CT evidence of diverticulitis. No bowel ob struction, bowel wall thickening, pneumatosis or intraperitoneal free air. Diffuse idiopathic skeletal hyperostosis of the thoracic spine. Multilevel degenerative disc disease of the lumbar spine, greatest at L1-2, L2-3 and L3-4. IMPRESSION: Cholelithiasis; borderline gallbladder wall thickness. Consider gallbladder ultrasound e xamination Polycystic kidney disease; there are occasional scattered small hepatic cysts. Diverticulosis of the colon Reviewed, dictated and finalized at [facility]. Reviewed, dictated and finalized at [facility]. [facility] IMPRESSION: Cholelithiasis; borderline gallbladder wall thickness. Consider ga llbladder ultrasound examination Polycystic kidney disease; there are occasional scattered small hepatic cysts. Diverticulosis of the colon
[2021-01-23 09:36] LABS: Basophils Absolute Auto 0.04 K/mm3 (0.00-0.10); Basophils Percent Auto 0.5 % (0.0-1.0); Eosinophils Absolute Auto 0.53 K/mm3 (0.02-0.50); Eosinophils Percent Auto 6.4 % (1.0-6.0); Hematocrit 34.5 % (37.0-46.0); Immature Granulocyte Absolute 0.04 K/mm3 (0.00-0.00); Immature Granulocyte Percent A 0.5 % (0.0-0.0); Lymphocytes Absolute Auto 1.61 K/mm3 (1.10-4.50); Lymphocytes Percent Auto 19.3 % (18.0-42.0); Mean Corpuscular HGB Conc 31.9 g/dL (32.0-36.0); Mean Corpuscular Hemoglobin 30.1 pg (27.0-31.0); Mean Corpuscular Volume 94.5 fL (78.0-102.0); Mean Platelet Volume 10.2 fl (8.7-11.0); Monocytes Absolute Auto 0.56 K/mm3 (0.10-0.90); Monocytes Percent Auto 6.7 % (2.0-11.0); Neutrophils Absolute Auto 5.6 K/mm3 (1.7-7.2); Neutrophils Percent Auto 66.6 % (50.0-70.0); Platelet Count Result 200 K/mm3 (150-420); Red Blood Count 3.65 M/mm3 (4.70-6.10); Red Cell Distribution Width 13.8 % (11.6-14.4); White Blood Count 8.3 K/mm3 (4.8-10.8)
[2021-01-23 10:27] LABS: Alanine Aminotransferase 16 U/L (16-63); Albumin Level 3.5 g/dL (3.4-5.0); Alkaline Phosphatase 88 U/L (46-116); Anion Gap 7 mmol/L (8-16); Aspartate Amino Transferase 11 U/L (15-37); Bilirubin,Total 0.3 mg/dL (0.00-1.00); Blood Urea Nitrogen 37 mg/dL (7-18); CRP 0.8 mg/dL (0.0-0.9); Calcium 8.6 mg/dL (8.5-10.1); Carbon Dioxide 31 mmol/L (21-32); Chloride 107 mmol/L (98-108); Cholesterol 153 mg/dL (0-200); Estimated Glomerular Filt Rate 21; Glucose 119 mg/dL (70-99); HDL Direct 28 mg/dL (40-60); LDL Cholesterol Calculated 104 mg/dL (<130); Osmolality Calculated 309 mOsm/kg (285-295); Sodium 145 mmol/L (136-145); Thyroid Stimulating Hormone 2.71 uIU/mL (0.36-3.74); Total Protein 6.5 g/dL (6.4-8.2); Triglycerides 106 mg/dL (0-150)
[2021-01-23 16:56] LABS: Prostate Specific Antigen 5.1 ng/mL (< OR = 4.0)
== END 2021-01-23 09:09 | disposition home or self-care (01) ==
PROVIDERS: PCP Internal Medicine; Visit Provider Internal Medicine
DX: R10.9 Unspecified abdominal pain (principal); Q61.3 Polycystic kidney, unspecified; M54.9 Dorsalgia, unspecified; R53.83 Other fatigue; E78.5 Hyperlipidemia, unspecified; Z12.5 Encounter for screening for malignant neoplasm of prostate
CPT/HCPCS: 36415; 74176; 80053; 80061; 84153; 84443; 85025; 86140; G0103

== ENCOUNTER 2021-02-05 09:37 | Outpatient (CLI) | payer MEDICARE, SELFPAY ==
[2021-02-05 09:52] LABS: Basophils Absolute Auto 0.04 K/mm3 (0.00-0.10); Basophils Percent Auto 0.4 % (0.0-1.0); Eosinophils Absolute Auto 0.45 K/mm3 (0.02-0.50); Eosinophils Percent Auto 4.5 % (1.0-6.0); Hematocrit 34.7 % (37.0-46.0); Immature Granulocyte Absolute 0.03 K/mm3 (0.00-0.00); Immature Granulocyte Percent A 0.3 % (0.0-0.0); Lymphocytes Absolute Auto 1.67 K/mm3 (1.10-4.50); Lymphocytes Percent Auto 16.8 % (18.0-42.0); Mean Corpuscular HGB Conc 31.7 g/dL (32.0-36.0); Mean Corpuscular Hemoglobin 30.2 pg (27.0-31.0); Mean Corpuscular Volume 95.3 fL (78.0-102.0); Mean Platelet Volume 10.1 fl (8.7-11.0); Monocytes Absolute Auto 0.53 K/mm3 (0.10-0.90); Monocytes Percent Auto 5.3 % (2.0-11.0); Neutrophils Absolute Auto 7.2 K/mm3 (1.7-7.2); Neutrophils Percent Auto 72.7 % (50.0-70.0); Platelet Count Result 168 K/mm3 (150-420); Red Blood Count 3.64 M/mm3 (4.70-6.10); White Blood Count 9.9 K/mm3 (4.8-10.8)
[2021-02-05 12:19] LABS: Alanine Aminotransferase 22 U/L (16-63); Albumin Level 3.4 g/dL (3.4-5.0); Alkaline Phosphatase 92 U/L (46-116); Anion Gap 8 mmol/L (8-16); Aspartate Amino Transferase 14 U/L (15-37); Bilirubin,Total 0.4 mg/dL (0.00-1.00); Blood Urea Nitrogen 47 mg/dL (7-18); Calcium 8.5 mg/dL (8.5-10.1); Carbon Dioxide 32 mmol/L (21-32); Chloride 104 mmol/L (98-108); Estimated Glomerular Filt Rate 20; Glucose 184 mg/dL (70-99); Osmolality Calculated 315 mOsm/kg (285-295); Sodium 144 mmol/L (136-145); Total Protein 6.3 g/dL (6.4-8.2)
== END 2021-02-05 09:38 | disposition home or self-care (01) ==
LOC: CHSLAB 09:41
PROVIDERS: PCP Internal Medicine; Visit Provider Internal Medicine
DX: I10 Essential (primary) hypertension (principal)
CPT/HCPCS: 36415; 80053; 85025

== ENCOUNTER 2021-07-25 10:32 | Outpatient (CLI) | payer MEDICARE, MEDICAID, SELFPAY ==
[2021-07-25 11:13] LABS: SARS-CoV-2 Ag Negative (Negative)
== END 2021-07-25 10:33 | disposition home or self-care (01) ==
LOC: CHSLAB 10:35
PROVIDERS: PCP Internal Medicine; Visit Provider Internal Medicine
DX: Z20.822 Contact with and (suspected) exposure to COVID-19 (principal)
CPT/HCPCS: 87426; C9803

== ENCOUNTER → 2021-11-10 02:46 | Outpatient (CLI) | payer MEDICARE, MEDICAID, SELFPAY ==
[2021-11-10 19:24] LABS: SARS-CoV-2 RNA PCR Positive
== END ==
PROVIDERS: PCP Internal Medicine; Visit Provider Surgery
DX: U07.1 COVID-19 (principal)
CPT/HCPCS: C9803; U0003; U0005

== ENCOUNTER 2021-11-12 08:40 | Outpatient (CLI) | payer MEDICARE, MEDICAID, SELFPAY ==
[2021-11-12] MEDS: ACETAMINOPHEN 325 MG TABLET 650 MG PO (09:11)
[2021-11-12] MEDS: diphenhydrAMINE HCl CAP 25 MG CAPSULE PO (09:12)
[2021-11-12] MEDS: FAMOTIDINE 20 MG TABLET PO (09:12)
[2021-11-12 09:13] VITALS: BP 146/85; PULSE 67; RESP 20; TEMP 36.9; O2SAT 96
--- NOTE | 2021-11-12 10:47 | PC.NURSE ---
Pt has no complaints. Discharged to home amb per self.
== END 2021-11-12 08:41 | disposition home or self-care (01) ==
LOC: CHSTREATRM 08:43
PROVIDERS: PCP Internal Medicine; Visit Provider Internal Medicine
DX: U07.1 COVID-19 (principal)
CPT/HCPCS: A9270; J7050; M0243; Q0244

== ENCOUNTER 2022-01-03 17:40 | Observation (INO) | payer MEDICARE, MEDICAID, SELFPAY ==
[2022-01-03] VITALS (8 sets, daily range): BP systolic 148–156; BP diastolic 80–92; PULSE 76–102; RESP 18–20; TEMP 37.2; O2SAT 88–95; BMI 35.5
--- NOTE | ~2022-01-03 | XR_ITS ---
EXAMINATION: XR chest 1V portable EXAM DATE: 01/03/2022 19:39 INDICATION: chest congestion. TECHNIQUE: Portable AP frontal chest x-ray was obtained. Comparison is made to prior examination from . FINDINGS: Moderate amount of left-sided, small amount of right-sided ill-defined airspace disease con sistent with acute infectious process, probably COVID pneumonia given appearance and community preval ence. Cardiomediastinal silhouette is normal. There is no pneumothorax suspected. There are no pleura l effusions. There are no osseous abnormalities identified. IMPRESSION: Moderate left, smaller amount of right-sided pneumonia. Reviewed, dictated and finalized at location [facility]. IC ADDRESS ANNOUNCER
--- NOTE | ~2022-01-03 | XR_ITS ---
EXAMINATION: XR chest 1V portable EXAM DATE: 01/05/2022 09:47 INDICATION: Increasing shortness of breath. TECHNIQUE: Portable AP frontal chest x-ray was obtained. Comparison is made to prior examination from 01/03/2022. FINDINGS: Moderate amount of bilateral ill-defined airspace disease, appearance consistent with COVID pneumonia but please clinically correlate. This may have progressed minimally. No pneumothorax or pl eural effusion. Low lung volume and portable AP technique contributing to prominent cardiac size. The re are no osseous abnormalities identified. IMPRESSION: Moderate amount of bilateral pneumonia, with minimal progression. Reviewed, dictated and finalized at location [facility]. LING FIELD SPECIALIST
--- NOTE | ~2022-01-03 | CT_ITS ---
EXAMINATION: CT abdomen pelvis wo con EXAM DATE: 01/03/2022 18:59 INDICATION: flank pain . TECHNIQUE: Spiral CT of the abdomen and pelvis was performed without contrast. Axial, coronal and s agittal images of the abdomen and pelvis were reviewed. The dose-length product (DLP) for this exami [facility] was 535.71 mGy-cm. The exposure was tailored according to patient size (auto mA exposure cont rol), and iterative reconstruction (ASIR) was used as additional dose reduction technique. Comparison is made to prior examination from 01/23/2021. FINDINGS: There is moderate amount of bibasilar groundglass airspace disease, most likely COVID pneum onia given appearance and community prevalence. The liver, spleen, adrenal glands and pancreas are u nremarkable. Gallbladder is unremarkable. No biliary obstruction. 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 There is mild prostatomegaly. The bladder is unremarkable. There is no retroperitoneal or pelvic lymphadenopathy. Small to moderate left, small right inguinal fat-containing hernias. The appendix is normal. There is mild to moderate colonic diverticulosis. There is no adjacent infla mmatory change to suggest diverticulitis. The stomach and small bowel are unremarkable. There is exp ected amount of colonic stool. No free intraperitoneal gas. There is small pericardial effusion. The lung bases are unremarkable. Moderate-sized thoracolumbar bridging endplate osteophytes. IMPRESSION: 1. Moderate left greater than right basilar airspace disease probably acute COVID pneumonia. 2. Small to moderate left, small right inguinal fat-containing hernias. 3. Prostatomegaly. 4. Colonic diverticulosis. 5. ADPKD. Reviewed, dictated and finalized at location G. [facility] IMPRESSION: 1. Moderate left greater than right basilar airspace disease probably acute CO VID pneumonia. 2. Small to moderate left, small right inguinal fat-containing hernias. 3. Prostatomegaly. 4. Colonic diverticulosis. 5. ADPKD.
--- NOTE | 2022-01-03 18:02 | ECG_ITS ---
Measurements Intervals [place] Rate: 78 P: 5 MT: 192 QRS: -43 QRSD: 97 T: 7 QT: 393 QTc: 450 Interpretive Statements SINUS RHYTHM LEFT VENTRICULAR HYPERTROPHY INFERIOR INFARCT, AGE INDETERMINATE CONSIDER ANTERIOR INFARCT, AGE INDETERMINATE BASELINE ARTIFACT- I, II, III, AVR, AVL, AVF, V1-V6 ABNORMAL ECG Electronically Signed On 01-03-2022 20:42:02 HIGH SPEED OPERATOR by Herve Alicia D.O.
--- NOTE | 2022-01-03 18:04 | ED.ABDPAIN ---
HPI - Abdominal Pain General Chief Complaint: Urogenital-Male Stated Complaint: Started Wed, back pain/nausea/throwing up Time Seen by Provider: 01/03/22 18:04 Source: patient Mode of arrival: ambulatory Limitations: no limitations History of Present Illness HPI narrative: this is a 76-year-old gentleman with a history of stage IV renal disease with history of hypertension hyperlipidemia has a remote history of kidney stones and a history of BPH presents with some back pain localizing to the right flank area and radiating into his right groin area with nausea with 2 episodes of vomiting, currently there is no fever chills no chest pain no shortness of breath. MD elicited complaint: abdominal pain and flank pain Pertinent past history: none Onset (ago): day(s) Pain Consistency: constant Location: L flank, R flank and groin Severity: moderate Pain scale (0-10): 7 Quality: sharp Radiation: R flank and back Migration to: R flank Exacerbating factors: nothing Relieving factors: nothing Related Data Home Medications Medication Instructions Recorded Confirmed allopurinol 300 mg PO DAILY 03/25/20 01/03/22 aspirin [Adult Low Dose Aspirin] 81 mg PO DAILY 03/25/20 01/03/22 carvedilol 25 mg PO BID 03/25/20 01/03/22 clopidogrel 75 mg PO DAILY 03/25/20 01/03/22 montelukast 10 mg PO DAILY 03/25/20 01/03/22 tamsulosin 0.4 mg PO HS 03/25/20 01/03/22 vitamin B complex [B 1 tablet PO DAILY 03/25/20 01/03/22 Complex-Vitamin B12] citalopram 20 mg PO DAILY 05/10/20 01/03/22 mirtazapine 45 mg PO HS 05/11/20 01/03/22 atorvastatin 40 mg PO DAILY 11/07/21 01/03/22 Calcium-Vitamin D 10 mcg PO DAILY 01/03/22 01/03/22 Probiotic Colon Care 1 tablet PO DAILY 01/03/22 01/03/22 felodipine 5 mg PO HS 01/03/22 01/03/22 melatonin 10 mg PO HS 01/03/22 01/03/22 turmeric 1,000 mg PO DAILY 01/03/22 01/03/22 Allergies Allergy/AdvReac Type Severity Reaction Status Date / Time No Known Allergies Allergy Verified 01/03/22 17:59 Review of Systems Review of Systems: All systems reviewed & are unremarkable except as noted in HPI and below [facility] Past Medical History Medical History Anemia of chronic disease Chronic dermatitis Chronic kidney disease, stage 4 (severe) Baseline creatinine appears to be around 2.30. He is followed by cephalometric technician in [place]. Congestive heart failure Echocardiogram in June 2019 showed normal left ventricular size, mild concentric left ventricular hypertrophy, impaired diastolic relaxation grade 1, ejection fraction visually estimated at 40 to 45%, akinetic apical segment, and hypokinesis of the apical anterior, apical lateral, and apical septum segments. Left atrium was moderately enlarged with mild mitral valve regurgitation. Mild pulmonary hypertension also noted with an estimated peak RVSP of 36 mmHg. Coronary artery disease With history of stent x1. Depression with anxiety Gout Hyperlipidemia Hypertension Obstructive sleep apnea Polycystic kidney disease Rheumatoid arthritis Surgical History Surgical History History of coronary artery stent placement Bare metal stent to the LAD in 1996. History of inguinal hernia repair Family History Family History Mother Hypertension Family history of lung cancer Family history of coronary artery disease Sibling Family history of polycystic kidney disease Father Family history of elevated blood lipids Family history of coronary artery disease Patient's father is Social History Social History Social History: Surrogate decision maker: José Escalante, son. Code status: Full code. Smoking status: Never smoker Alcohol intake: current Drinks per week: 7 Alcohol use details: Beer Substance use: never Additional
[2022-01-03 18:19] LABS: Basophils Absolute Auto 0.01 K/mm3 (0.00-0.10); Basophils Percent Auto 0.1 % (0.0-1.0); Eosinophils Absolute Auto 0.01 K/mm3 (0.02-0.50); Eosinophils Percent Auto 0.1 % (1.0-6.0); Hematocrit 33.1 % (37.0-46.0); Hemoglobin 10.5 g/dL (12.4-15.3); Immature Granulocyte Absolute 0.09 K/mm3 (0.00-0.00); Immature Granulocyte Percent A 1.2 % (0.0-0.0); Lymphocytes Absolute Auto 0.98 K/mm3 (1.10-4.50); Lymphocytes Percent Auto 12.7 % (18.0-42.0); Mean Corpuscular HGB Conc 31.7 g/dL (32.0-36.0); Mean Corpuscular Hemoglobin 28.8 pg (27.0-31.0); Mean Corpuscular Volume 90.9 fL (78.0-102.0); Mean Platelet Volume 9.4 fl (8.7-11.0); Monocytes Absolute Auto 0.71 K/mm3 (0.10-0.90); Monocytes Percent Auto 9.2 % (2.0-11.0); Neutrophils Absolute Auto 5.9 K/mm3 (1.7-7.2); Neutrophils Percent Auto 76.7 % (50.0-70.0); Platelet Count Result 250 K/mm3 (150-420); Red Blood Count 3.64 M/mm3 (4.70-6.10); Red Cell Distribution Width 15.4 % (11.6-14.4); White Blood Count 7.7 K/mm3 (4.8-10.8)
[2022-01-03] MEDS: MORPHINE SULFATE (*CRX) 4 MG/ML INJ IV PUSH (18:20)
[2022-01-03] MEDS: ONDANSETRON INJ 4 MG/2 ML VIAL IV PUSH (18:20)
[2022-01-03] MEDS: SODIUM CHLORIDE 0.9% IV 500 ML 999 ML IV CONT (18:20)
--- NOTE | 2022-01-03 18:29 | PC.NURSE ---
Pt resting on stretcher drinking ice water per ERP approval. Pt aware of need for urine specimen. States he is unable to go at this time. Urinal provided. Pts son brought back to room. Pt states his pain is starting to feel relieved.
[2022-01-03 18:34] LABS: INR 1.1; Partial Thromboplastin Time 31.7 SEC (23.90-30.70)
[2022-01-03 18:38] LABS: Alanine Aminotransferase 91 U/L (16-63); Albumin Level 2.9 g/dL (3.4-5.0); Alkaline Phosphatase 71 U/L (46-116); Anion Gap 11 mmol/L (8-16); Aspartate Amino Transferase 50 U/L (15-37); Bilirubin,Total 0.8 mg/dL (0.00-1.00); Blood Urea Nitrogen 50 mg/dL (7-18); Calcium 8.5 mg/dL (8.5-10.1); Carbon Dioxide 28 mmol/L (21-32); Chloride 100 mmol/L (98-108); Estimated CRCL calculation 19 ml/min; Estimated Glomerular Filt Rate 16; Glucose 139 mg/dL (70-99); Lipase 178 U/L (73-393); Osmolality Calculated 303 mOsm/kg (285-295); Potassium 3.7 mmol/L (3.5-5.1); Sodium 139 mmol/L (136-145); Total Protein 7.9 g/dL (6.4-8.2)
[2022-01-03 18:39] LABS: Troponin I 100.5 ng/L (0.00-60.4)
--- NOTE | 2022-01-03 18:39 | PC.NURSE ---
RN informed ERp of critical lab of troponin of 100.5.
[2022-01-03 18:40] LABS: Lactic Acid Reflex 1.7 mmol/L (0.4-2.0)
[2022-01-03 19:05] LABS: Add Urine Microscopic? YES; Appearance Urine Clear (Clear); Bilirubin Urine Negative (Negative); Blood Urine 1+ (Negative); Color Urine Light Yellow (Yellow); Glucose Urine UA Negative (Negative); Ketones Urine Negative (Negative); Leukocyte Esterase Ur Negative (Negative); Nitrate Urine Negative (Negative); Protein Urine 1+ (Negative); Urobilinogen Urine 0.2 mg/dL (0.2-1.0)
[2022-01-03 19:10] LABS: NT Pro B Type Natriuretic Pept 6532 pg/mL (0-125)
[2022-01-03 19:13] LABS: Bacteria Urine Trace /hpf; Squamous Epithelial Cell Urine Few /hpf (Few); WBC Urine 0-3 /hpf (0-3)
--- NOTE | 2022-01-03 19:17 | PC.NURSE ---
RN gave report to staci JOHNSON.
--- NOTE | 2022-01-03 19:37 | PC.NURSE ---
1915 Took Pt report on Pt from Dr. Archuleta with follow information from Tea JOHNSON. Pt. resting on stretcher. Stretcher in low postion. Pt Grandson at bed side and brother in the waiting room. Pt placed on pvc monitor and o2 2 l per N/C for sats now 87% on room air. Pt. after O2 administation sating 94%.
--- NOTE | 2022-01-03 19:40 | PC.NURSE ---
193 Hours: Call placed to [facility]. Spoke with Hay Manzano who gave me the phone number to the [employer] Dr. Chandler. Also Samina JOHNSON advised me if transfered no IMU beds, but one telemetry Bed. [address] Chandler called back at this time. Spoke with Dr Westbrook to advise her of Pt current situation(waiting COVID swab and Cardiac enzymes).
[2022-01-03 19:57] LABS: SARS-CoV-2 RNA PCR Positive (Negative)
[2022-01-03 21:36] LABS: Troponin I 89.2 ng/L (0.00-60.4)
[2022-01-03] MEDS: DEXAMETHASONE SOD PHOS INJ 4 MG/ML VIAL 6 MG IV PUSH (22:50)
[2022-01-04] VITALS (8 sets, daily range): BP systolic 137–149; BP diastolic 68–89; PULSE 66–114; RESP 18–20; TEMP 36.6–36.9; O2SAT 90–94
--- NOTE | 2022-01-04 00:42 | PC.NURSE ---
Patient informed his nurse this was 2nd round of covid with remedesivir. Patient is currently waiting to get fistula and start dialysis. Recommendations for Remedesivor is to not give for GFR less than 30. His GFR is currently 16. Call out to SCHOOL CHILDCARE ATTENDANT Will hold medication until approved.
[2022-01-04 01:37] LABS: Alanine Aminotransferase 77 U/L (16-63); Estimated CRCL calculation 20 ml/min; Estimated Glomerular Filt Rate 17; Troponin I 87.2 ng/L (0.00-60.4)
[2022-01-04 01:39] LABS: INR 1.2; Prothrombin Time 12.4 Seconds (9.64-11.0)
--- NOTE | 2022-01-04 01:44 | ADMGEN ---
This patient, Armen Escalante, was admitted to 2nd Floor Room 210-2. Patient/family oriented to hospital policies and general routines including ID bracelet, bed and alarms, pain management, procedures, bathroom and other care routines, personal items, smoking policy, room service/diet, and visiting hours. Information on how to activate the Rapid Response Team has been discussed. Patient/Family are encouraged to report perceived risks to care and to ask questions if they do not understand what they are told or what they should do.
[2022-01-04] MEDS: ALBUTEROL SULFATE (*SP) INHALER 2 PUFF INHALATION ×4 (06:40→20:28)
[2022-01-04] MEDS: DEXAMETHASONE SOD PHOS INJ 4 MG/ML VIAL 6 MG IV PUSH (09:06)
[2022-01-04] MEDS: FUROSEMIDE INJ 40 MG/4 ML VIAL IV PUSH (09:06)
[2022-01-04 09:31] LABS: NT Pro B Type Natriuretic Pept 5150 pg/mL (0-125)
[2022-01-04 11:17] LABS: Hematocrit 30.4 % (37.0-46.0); Hemoglobin 9.4 g/dL (12.4-15.3); Mean Corpuscular HGB Conc 30.9 g/dL (32.0-36.0); Mean Corpuscular Hemoglobin 29.2 pg (27.0-31.0); Mean Corpuscular Volume 94.4 fL (78.0-102.0); Mean Platelet Volume 9.9 fl (8.7-11.0); Platelet Count Result 257 K/mm3 (150-420); Red Blood Count 3.22 M/mm3 (4.70-6.10); Red Cell Distribution Width 15.9 % (11.6-14.4); White Blood Count 6.9 K/mm3 (4.8-10.8)
[2022-01-04 11:21] LABS: Anion Gap 11 mmol/L (8-16); Blood Urea Nitrogen 48 mg/dL (7-18); Calcium 7.8 mg/dL (8.5-10.1); Carbon Dioxide 27 mmol/L (21-32); Chloride 98 mmol/L (98-108); Estimated CRCL calculation 20 ml/min; Estimated Glomerular Filt Rate 18; Glucose 159 mg/dL (70-99); Osmolality Calculated 297 mOsm/kg (285-295); Potassium 3.6 mmol/L (3.5-5.1); Sodium 136 mmol/L (136-145)
--- NOTE | 2022-01-04 11:22 | PM.IMHP ---
H&P: HPI History of Present Illness Date/Time: 01/04/22 11:22 Mr. Escalante is a 76-year-old male with stage V renal disease has a history of hyperlipidemia and hypertension, back pain and BPH. Patient is positive for Covid has been sick off and on since he initially was diagnosed in October 2021 and is having shortness of breath. Patient has complains of weakness he initially came because of back pain that radiated to his inner thigh and not getting pain control. Patient's troponins were noted to be elevated per report lithographing machine operator has been called Dr. Lit Henriquez who advised since there is no ST elevation no chest pain, given patient's chronic diseases and troponins are trending down the patient is stable enough to stay here follow-up with his lithographing machine operator outpatient unless there is a turn of events while he is inpatient then we can work on transfer. Patient is on the floor with oxygen generally has CPAP at bedtime. According to patient he is going for clinic he is scheduled this due to he is going to have a shunt placed for dialysis. Patient's baseline creatinine is 2.50. Chief Complaint: Back pain, shortness of breath Review of Systems Review of Systems: Shortness of breath, Weakness, back pain All systems reviewed & are unremarkable except as noted in HPI and below PMFSH Past Medical History Medical History Anemia of chronic disease Chronic dermatitis Chronic kidney disease, stage 4 (severe) Baseline creatinine appears to be around 2.30. He is followed by product inspection coordinator in [place]. Congestive heart failure Echocardiogram in June 2019 showed normal left ventricular size, mild concentric left ventricular hypertrophy, impaired diastolic relaxation grade 1, ejection fraction visually estimated at 40 to 45%, akinetic apical segment, and hypokinesis of the apical anterior, apical lateral, and apical septum segments. Left atrium was moderately enlarged with mild mitral valve regurgitation. Mild pulmonary hypertension also noted with an estimated peak RVSP of 36 mmHg. Coronary artery disease With history of stent x1. Depression with anxiety Gout Hyperlipidemia Hypertension Obstructive sleep apnea Polycystic kidney disease Rheumatoid arthritis Surgical History Surgical History History of coronary artery stent placement Bare metal stent to the LAD in 1996. History of inguinal hernia repair Family History Family History Mother Hypertension Family history of lung cancer Family history of coronary artery disease Sibling Family history of polycystic kidney disease Father Family history of elevated blood lipids Family history of coronary artery disease Patient's father is Social History Social History Social History: Surrogate decision maker: José Escalante, son. Code status: Full code. Smoking status: Never smoker Second hand tobacco smoke exposure: No Alcohol intake: current Drinks per week: 6 Alcohol use details: Beer Substance use: never Substance use type: does not use Additional living arrangements comments: Patient lives with one of his 4 sons in [place]. Additional occupation/education comments: Retired from working in sales. Gender identity (if verbalized by the patient): Male Spiritual care concerns: No Meds Home Medications and Allergies Home Medications Medication Instructions Recorded Confirmed Type allopurinol 300 mg PO DAILY 03/25/20 01/03/22 History aspirin [Adult Low Dose Aspirin] 81 mg PO DAILY 03/25/20 01/03/22 History carvedilol 25 mg PO BID 03/25/20 01/03/22 History clopidogrel 75 mg PO DAILY 03/25/20 01/03/22 History montelukast 10 mg PO DAILY 03/25/20 01/03/22 History tamsulosin 0.4 mg PO HS 03/25/20
--- NOTE | 2022-01-04 17:18 | PC.NURSE ---
Attempting to wean O2. Patient currently on 1.5L via n/c and tolerating well.
[2022-01-04] MEDS: ACETAMINOPHEN 325 MG TABLET 650 MG PO (18:10)
--- NOTE | 2022-01-04 20:00 | PC.NURSE ---
During patient education, patient stated that he does not have diabetes. This information will be double checked.
[2022-01-04] MEDS: MIRTAZAPINE 15 MG TABLET 45 MG PO (20:29)
[2022-01-04] MEDS: TAMSULOSIN HCL 0.4 MG CAPSULE PO (20:29)
[2022-01-04] MEDS: carvediloL 12.5 MG TABLET 25 MG PO (20:30)
[2022-01-04] MEDS: MELATONIN 5 MG TABLET 10 MG PO (20:31)
[2022-01-05] VITALS (8 sets, daily range): BP systolic 122–145; BP diastolic 65–83; PULSE 57–102; RESP 14–18; TEMP 35.7–36.4; O2SAT 88–97
[2022-01-05 05:31] LABS: Alanine Aminotransferase 76 U/L (16-63); Estimated CRCL calculation 21 ml/min; Estimated Glomerular Filt Rate 19
[2022-01-05] MEDS: ALBUTEROL SULFATE (*SP) INHALER 2 PUFF INHALATION ×2 (06:12→10:30)
[2022-01-05 08:09] LABS: Hematocrit 30.6 % (37.0-46.0); Hemoglobin 9.8 g/dL (12.4-15.3); Mean Corpuscular Volume 90.5 fL (78.0-102.0); Mean Platelet Volume 10.6 fl (8.7-11.0); Platelet Count Result 225 K/mm3 (150-420); Red Blood Count 3.38 M/mm3 (4.70-6.10); Red Cell Distribution Width 14.8 % (11.6-14.4); White Blood Count 5.2 K/mm3 (4.8-10.8)
[2022-01-05 08:12] LABS: Anion Gap 10 mmol/L (8-16); Blood Urea Nitrogen 56 mg/dL (7-18); Calcium 8.4 mg/dL (8.5-10.1); Carbon Dioxide 29 mmol/L (21-32); Chloride 100 mmol/L (98-108); Estimated CRCL calculation 21 ml/min; Estimated Glomerular Filt Rate 19; Glucose 210 mg/dL (70-99); Osmolality Calculated 309 mOsm/kg (285-295); Potassium 3.9 mmol/L (3.5-5.1); Sodium 139 mmol/L (136-145)
[2022-01-05] MEDS: guaiFENesin/DEXTROMETHORPHAN 5 ML UDC 10 ML PO (08:20)
--- NOTE | 2022-01-05 08:26 | HOMEO2EVAL ---
Evaluation was performed [place] [facility] [place]: Home Oxygen (O2) Evaluation Start: 01/05/22 07:04 Freq: ONCE Status: Active Protocol: RPE Activity Type Activity Date Activity User E-Sign Co-Sign Detail Recorded Client Recorded Date Recorded By Document 01/05/22 08:00 SJB [id number] 01/05/22 08:26 SJB Document 01/05/22 08:03 SJB [id number] 01/05/22 08:26 SJB Document 01/05/22 08:05 SJB [id number] 01/05/22 08:26 SJB Document 01/05/22 08:10 SJB [id number] 01/05/22 08:26 SJB 01/05/22 01/05/22 01/05/22 08:00 08:03 08:05 Home O2 Evaluation Test Phase Resting Exercise Exercise Oxygen Delivery Room Air Nasal Cannula Nasal Cannula Oxygen Flow Rate (L/min) 1 1 Pulse Oximetry (90-100 %) 92 88 L 88 L Pulse Rate (60-100 beats/min) 71 76 73 Activity Tolerance Fair Rating of Perceived Dyspnea (PD) +2 Mild, Some Difficulty, Noticeable to the Observer Rate of Perceived Exertion (PE) 12 Ambulation Distance (feet) 60 Ambulation Distance (meters) 18.28 Home Oxygen Evaluation Comments Will begin walk Will start on 1 Sp02 stayed at . Pt uses a lpm oxygen 88% so will cane. increase 02 to 2 lpm Treatment Charges O2 Evaluation - Inpatient 01/05/22 08:10 Home O2 Evaluation Test Phase Exercise Oxygen Delivery Nasal Cannula Oxygen Flow Rate (L/min) 2 Pulse Oximetry (90-100 %) 91 Pulse Rate (60-100 beats/min) 72 Activity Tolerance Fair Rating of Perceived Dyspnea (PD) +2 Mild, Some Difficulty, Noticeable to the Observer Rate of Perceived Exertion (PE) 13 Somewhat Hard Ambulation Distance (feet) 65 Ambulation Distance (meters) 19.81 Home Oxygen Evaluation Comments Pt finished walk on 2 lpm with Sp02 at 91 %. Encouraged PLB. Treatment Charges
--- NOTE | 2022-01-05 08:40 | HOMEO2EVAL ---
Evaluation was performed at [facility] Oxygen Evaluation RC: Home Oxygen (O2) Evaluation Start: 01/05/22 07:04 Freq: ONCE Status: Active Protocol: RPE Activity Type Activity Date Activity User E-Sign Co-Sign Detail Recorded Client Recorded Date Recorded By Document 01/05/22 08:00 SJB [id number] 01/05/22 08:26 SJB Document 01/05/22 08:03 SJB [id number] 01/05/22 08:26 SJB Document 01/05/22 08:05 SJB [id number] 01/05/22 08:26 SJB Document 01/05/22 08:10 SJB [id number] 01/05/22 08:26 SJB 01/05/22 01/05/22 01/05/22 08:00 08:03 08:05 Home O2 Evaluation Test Phase Resting Exercise Exercise Oxygen Delivery Room Air Room Air Nasal Cannula Oxygen Flow Rate (L/min) 1 Pulse Oximetry (90-100 %) 92 88 L 88 L Pulse Rate (60-100 beats/min) 71 76 73 Activity Tolerance Fair Rating of Perceived Dyspnea (PD) +2 Mild, Some Difficulty, Noticeable to the Observer Rate of Perceived Exertion (PE) 12 Ambulation Distance (feet) 60 Ambulation Distance (meters) 18.28 Home Oxygen Evaluation Comments Will begin walk Will start on 1 Sp02 stayed at . Pt uses a lpm oxygen 88% so will cane. increase 02 to 2 lpm Treatment Charges O2 Evaluation - Inpatient 01/05/22 08:10 Home O2 Evaluation Test Phase Exercise Oxygen Delivery Nasal Cannula Oxygen Flow Rate (L/min) 2 Pulse Oximetry (90-100 %) 91 Pulse Rate (60-100 beats/min) 72 Activity Tolerance Fair Rating of Perceived Dyspnea (PD) +2 Mild, Some Difficulty, Noticeable to the Observer Rate of Perceived Exertion (PE) 13 Somewhat Hard Ambulation Distance (feet) 65 Ambulation Distance (meters) 19.81 Home Oxygen Evaluation Comments Pt finished walk on 2 lpm with Sp02 at 91 %. Encouraged PLB. Treatment Charges
[2022-01-05] MEDS: DEXAMETHASONE SOD PHOS INJ 4 MG/ML VIAL 6 MG IV PUSH (09:32)
[2022-01-05] MEDS: FUROSEMIDE INJ 40 MG/4 ML VIAL IV PUSH (09:32)
[2022-01-05] MEDS: ASPIRIN 81 MG ENTERIC TABLET PO (09:34)
[2022-01-05] MEDS: allopurinoL 300 MG TABLET PO (09:34)
[2022-01-05] MEDS: CITALOPRAM HYDROBROMIDE 20 MG TABLET PO (09:34)
[2022-01-05] MEDS: carvediloL 12.5 MG TABLET 25 MG PO (09:34)
[2022-01-05] MEDS: MONTELUKAST SODIUM 10 MG TABLET PO (09:34)
[2022-01-05] MEDS: ATORVASTATIN 40 MG TABLET PO (09:35)
[2022-01-05] MEDS: CLOPIDOGREL BISULFATE 75 MG TABLET PO (09:35)
[2022-01-05] MEDS: ENOXAPARIN 40 MG/0.4 ML SYRINGE SUB-Q (09:35)
--- NOTE | 2022-01-05 11:09 | P.DS_ITS ---
DS: Admitting Diagnosis Discharge Date 01/05/2022 Admitting Diagnosis COVID, Weakness, Hypertension DS: Discharge Diagnosis Discharge Diagnosis (1) Pneumonia due to COVID-19 virus: Code(s): U07.1 - COVID-19; J12.82 - Pneumonia due to coronavirus disease 2018 Status: Acute Assessment and Plan: * Oxygen per nasal * IV Steroid changed to oral steroids * Inhalers * IS * we will not do Remdesivir as patient GFR is to low and he had a round of Remdesivir in Oct * Cardiac Tele monitor d/c * Pt has CPAP as he has sleep apnea * Wean from oxygen DEON Patient will go home with home oxygen at 2l * Patient will go home on 2 L of oxygen unable to wean this 6-minute walk study (2) Obstructive sleep apnea: Code(s): G47.33 - Obstructive sleep apnea (adult) (pediatric) Status: Acute Assessment and Plan: * CPAP from home if possible * Oxygen if no CPAP at night * Continue with continous pulse ox * Use CPAP at home at nighttime when sleeping (3) Chronic kidney disease, stage 4 (severe): Code(s): N18.4 - Chronic kidney disease, stage 4 (severe) Status: Acute Assessment and Plan: * Avoid nephrotoxic medication * Baseline CR 2.50 * Pt to follow up with Creative Services Specialist on Discharge see at [facility] that had * PATIENT TO HAVE APPOINTMENT WITH [facility] Wednesday for shunt for dialysis (4) Hypertension: Qualifiers: Hypertension type: essential hypertension Qualified Code(s): I10 - Essential (primary) hypertension Code(s): I10 - Essential (primary) hypertension Status: Acute Assessment and Plan: * Continue to monitor blood pressure * Cardiac Tele monitor continuous * Continue all home medication * Will adjust medication accordingly Call and schedule appointment with Shipping Clerk Crating once discharged (5) Congestive heart failure: Code(s): I50.9 - Heart failure, unspecified Status: Acute Assessment and Plan: BNP greater than 6000 IV Lasix Trend labs Monitor for worsening conditions (6) Elevated troponin: Code(s): R77.8 - Other specified abnormalities of plasma proteins Status: Acute Assessment and Plan: * Inital trop 100.5...89.2...87.2 * Cardiology called and consulted Dr. Wakefield did not feel like patient needed transferred as long as trending down and there are no EKG changes patient is fine with Espically with COVID, CKD etc... * monitor technician * Repeat EKG with any new chest pain, or changes on monitor technician * Oxygen as indicated * No Chest pain or Cardiac issue while in patient monitor technician remained the same. DS: Summary Hospital Course Hospital Course: Mr. Escalante 76-year-old gentleman with a history of stage IV renal disease with history of hypertension hyperlipidemia was treated in patient that is being treated for Covid while he was here patient required IV steroids, oxygen, inhaler. Patient had elevated troponins while he was here cardiology was consulted as a phone consult at this time they did not feel like patient needed to be transferred as he did not have any changes in EKGs no ST elevation no shortness of breath endorsed chest pain. Patient remained on telemetry with no changes or issues in the EKG. Patient creatinine remained elevated we avoided all nephrotoxic medications as he did not receive remdesivir due to his GFR patient has been seen by ssn/ssbn weapons equipment operator has an appointment this is scheduled for scheduling for shunt placement so he could begin dialysis. Patient was seen for 6-minute walk study is requiring oxygen at home.
--- NOTE | 2022-01-05 11:09 | PM.DS ---
DS: Admitting Diagnosis Discharge Date 01/05/2022 Admitting Diagnosis COVID, Weakness, Hypertension DS: Discharge Diagnosis Discharge Diagnosis (1) Pneumonia due to COVID-19 virus: Code(s): U07.1 - COVID-19; J12.82 - Pneumonia due to coronavirus disease 2018 Status: Acute Assessment and Plan: Oxygen per nasal IV Steroid changed to oral steroids Inhalers IS we will not do Remdesivir as patient GFR is to low and he had a round of Remdesivir in Dec Cardiac Tele monitor d/c Pt has CPAP as he has sleep apnea Wean from oxygen DEON Patient will go home with home oxygen at 2l Patient will go home on 2 L of oxygen unable to wean this 6-minute walk study (2) Obstructive sleep apnea: Code(s): G47.33 - Obstructive sleep apnea (adult) (pediatric) Status: Acute Assessment and Plan: CPAP from home if possible Oxygen if no CPAP at night Continue with continous pulse ox Use CPAP at home at nighttime when sleeping (3) Chronic kidney disease, stage 4 (severe): Code(s): N18.4 - Chronic kidney disease, stage 4 (severe) Status: Acute Assessment and Plan: Avoid nephrotoxic medication Baseline CR 2.50 Pt to follow up with Facility Manager on Discharge see at [facility] that had PATIENT TO HAVE APPOINTMENT WITH [facility] Wednesday for shunt for dialysis (4) Hypertension: Qualifiers: Hypertension type: essential hypertension Qualified Code(s): I10 - Essential (primary) hypertension Code(s): I10 - Essential (primary) hypertension Status: Acute Assessment and Plan: Continue to monitor blood pressure Cardiac Tele monitor continuous Continue all home medication Will adjust medication accordingly Call and schedule appointment with Correctional Probation Officer once discharged (5) Congestive heart failure: Code(s): I50.9 - Heart failure, unspecified Status: Acute Assessment and Plan: BNP greater than 6000 IV Lasix Trend labs Monitor for worsening conditions (6) Elevated troponin: Code(s): R77.8 - Other specified abnormalities of plasma proteins Status: Acute Assessment and Plan: Inital trop 100.5...89.2...87.2 Cardiology called and consulted Dr. Wakefield did not feel like patient needed transferred as long as trending down and there are no EKG changes patient is fine with Espically with COVID, CKD etc... engine monitor Repeat EKG with any new chest pain, or changes on engine monitor Oxygen as indicated No Chest pain or Cardiac issue while in patient engine monitor remained the same. DS: Summary Hospital Course Hospital Course: Mr. Escalante 76-year-old gentleman with a history of stage IV renal disease with history of hypertension hyperlipidemia was treated in patient that is being treated for Covid while he was here patient required IV steroids, oxygen, inhaler. Patient had elevated troponins while he was here cardiology was consulted as a phone consult at this time they did not feel like patient needed to be transferred as he did not have any changes in EKGs no ST elevation no shortness of breath endorsed chest pain. Patient remained on telemetry with no changes or issues in the EKG. Patient creatinine remained elevated we avoided all nephrotoxic medications as he did not receive remdesivir due to his GFR patient has been seen by radio mechanic apprentice has an appointment this is scheduled for scheduling for shunt placement so he could begin dialysis. Patient was seen for 6-minute walk study is requiring oxygen at home. Patient has remained stable able to eat drink and get around with a walker or cane. He has a CPAP at home that he will use while sleeping blood sugars have been slightly high although he has been on insulin and receiving steroids which raise blood sugars. Mr. Escalante's creatinine is 3.20 down from yesterday which was 3.5. At this time patient has a dry hacking cough discussed with patient that more than
--- NOTE | 2022-01-05 14:51 | PC.NURSE ---
Pt discharged to home. Yuri PHAM delivered O2 to the room and will deliver O2 to the home. Pt instructed regarding use of O2 at home and safety precautions regarding O2 in the home. Medication instruction given to pt. Pt instructed to return to the hospital should his symptoms worsen. Pt verbalized understanding of all instructions. Taken to family car by RN via WC and assisted into the car.
--- NOTE | 2022-01-09 14:37 | PC.NURSE ---
Pt states he doesn't remember getting his discharge instructions. He has no other comments.
== END 2022-01-05 14:20 | disposition home health service (06) ==
LOC: CHSED 21:45 → CHS2ND 22:08
PROVIDERS: Nurse Practitioner Family; Admitting Provider Emergency Medicine; Emergency Provider Emergency Medicine; PCP Internal Medicine; Visit Provider Emergency Medicine
DX: U07.1 COVID-19 (principal); J12.82 Pneumonia due to coronavirus disease 2019; I13.0 Hypertensive heart and chronic kidney disease with heart failure and stage 1 through stage 4 chronic kidney disease, or unspecified chronic kidney disease; I50.9 Heart failure, unspecified; N18.4 Chronic kidney disease, stage 4 (severe); I25.10 Atherosclerotic heart disease of native coronary artery without angina pectoris; Q61.3 Polycystic kidney, unspecified; R77.8 Other specified abnormalities of plasma proteins; D63.8 Anemia in other chronic diseases classified elsewhere; E78.5 Hyperlipidemia, unspecified; L30.9 Dermatitis, unspecified; M06.9 Rheumatoid arthritis, unspecified; N40.0 Benign prostatic hyperplasia without lower urinary tract symptoms; F32.A Depression, unspecified; M10.9 Gout, unspecified; G47.33 Obstructive sleep apnea (adult) (pediatric); F41.9 Anxiety disorder, unspecified; Z95.5 Presence of coronary angioplasty implant and graft
CPT/HCPCS: 36415; 71045; 74176; 80048; 80053; 81001; 82565; 83605; 83690; 83880; 84460; 84484; 85025; 85027; 85610; 85730; 93005; 94618; 96365; 96367; 96372; 96375; 96376; 99285; A9270; C9803; G0378; J0456; J0696; J1100; J1650; J1940; J2270; J2405; J7040; U0003; U0005

== ENCOUNTER 2022-01-08 21:26 | Inpatient (IN) | payer MEDICARE, MEDICAID, SELFPAY ==
--- NOTE | ~2022-01-08 | XR_ITS ---
EXAMINATION: XR chest 1V portable DATE: 01/08/2022 23:00 INDICATION: Weakness. COVID-19 pneumonia. TECHNIQUE: A single frontal view of the chest was obtained. COMPARISON: Chest single view 01/05/2022, CT abdomen and pelvis 01/03/2022 FINDINGS: There are patchy airspace opacities in all lung zones bilaterally with a peripheral predomi nance. No pleural effusion or pneumothorax. The heart size is normal. IMPRESSION: 1. Diffuse lung disease with mild improvement, consistent with COVID-19 pneumonia. Reviewed, dictated and finalized at location E. BRUSHER IMPRESSION: 1. Diffuse lung disease with mild improvement, consistent with COVID-19 pneumon ia.
[2022-01-08 22:42] VITALS: BP 122/86; PULSE 124; RESP 18; TEMP 38.7; O2SAT 96
[2022-01-08 22:54] LABS: Basophils Absolute Auto 0.04 K/mm3 (0.00-0.10); Basophils Percent Auto 0.2 % (0.0-1.0); Hematocrit 33.7 % (37.0-46.0); Hemoglobin 10.6 g/dL (12.4-15.3); Immature Granulocyte Absolute 0.42 K/mm3 (0.00-0.00); Immature Granulocyte Percent A 2.5 % (0.0-0.0); Lymphocytes Absolute Auto 0.99 K/mm3 (1.10-4.50); Lymphocytes Percent Auto 5.9 % (18.0-42.0); Mean Corpuscular HGB Conc 31.5 g/dL (32.0-36.0); Mean Corpuscular Hemoglobin 28.9 pg (27.0-31.0); Mean Corpuscular Volume 91.8 fL (78.0-102.0); Mean Platelet Volume 9.5 fl (8.7-11.0); Monocytes Absolute Auto 1.01 K/mm3 (0.10-0.90); Neutrophils Absolute Auto 14.4 K/mm3 (1.7-7.2); Neutrophils Percent Auto 85.4 % (50.0-70.0); Platelet Count Result 357 K/mm3 (150-420); Red Blood Count 3.67 M/mm3 (4.70-6.10); Red Cell Distribution Width 15.5 % (11.6-14.4); White Blood Count 16.9 K/mm3 (4.8-10.8)
[2022-01-08 23:17] LABS: Alanine Aminotransferase 60 U/L (16-63); Albumin Level 2.6 g/dL (3.4-5.0); Alkaline Phosphatase 63 U/L (46-116); Anion Gap 10 mmol/L (8-16); Aspartate Amino Transferase 41 U/L (15-37); Bilirubin,Total 0.8 mg/dL (0.00-1.00); Blood Urea Nitrogen 45 mg/dL (7-18); Calcium 8.7 mg/dL (8.5-10.1); Carbon Dioxide 29 mmol/L (21-32); Chloride 100 mmol/L (98-108); Estimated CRCL calculation 22 ml/min; Estimated Glomerular Filt Rate 21; Glucose 131 mg/dL (70-99); Lactic Acid Reflex 1.1 mmol/L (0.4-2.0); NT Pro B Type Natriuretic Pept 11158 pg/mL (0-125); Osmolality Calculated 301 mOsm/kg (285-295); Potassium 4.1 mmol/L (3.5-5.1); Sodium 139 mmol/L (136-145); Total Protein 7.4 g/dL (6.4-8.2)
[2022-01-08 23:24] LABS: CRP > 10.6 mg/dL (0.0-0.9)
--- NOTE | 2022-01-08 23:45 | ED.WEAKNESS ---
HPI - Weakness General Chief complaint: Weakness Stated complaint: trouble breathing, not eating Time Seen by Provider: 01/08/22 23:45 Source: patient and family History of Present Illness HPI Narrative: this is a 76-year-old gentleman with a history of chronic kidney disease has some CHF grade 1 diastolic dysfunction with an ejection fraction of 45 to 50% was recently discharged from our facility has a history of positive for COVID has a history of chronic kidney disease with a baseline creatinine around 2.9 ice has stage 4 chronic kidney disease with history of rheumatoid arthritis hyperlipidemia depression. Currently patient is exhibiting some weakness and some mild shortness of breath although his O2 sats are 96% on room air with a stable stable blood pressure 122/86. With no chest pain no abdominal pain no diarrhea constipation no nausea vomiting. Does have a temperature of 100.6?. MD Complaint: generalized weakness Onset (ago): day(s) Duration: constant Location: generalized Severity: moderate Related Data Home Medications Medication Instructions Recorded Confirmed allopurinol 300 mg PO DAILY 03/25/20 01/08/22 carvedilol 25 mg PO BID 03/25/20 01/08/22 clopidogrel 75 mg PO DAILY 03/25/20 01/08/22 montelukast 10 mg PO DAILY 03/25/20 01/08/22 tamsulosin 0.4 mg PO HS 03/25/20 01/08/22 vitamin B complex [B 1 tablet PO DAILY 03/25/20 01/08/22 Complex-Vitamin B12] citalopram 20 mg PO DAILY 05/10/20 01/08/22 mirtazapine 45 mg PO HS 05/11/20 01/08/22 atorvastatin 40 mg PO DAILY 11/07/21 01/08/22 Calcium-Vitamin D 10 mcg PO DAILY 01/03/22 01/08/22 Probiotic Colon Care 1 tablet PO DAILY 01/03/22 01/08/22 felodipine 5 mg PO HS 01/03/22 01/08/22 melatonin 10 mg PO HS 01/03/22 01/08/22 turmeric 1,000 mg PO DAILY 01/03/22 01/08/22 Allergies Allergy/AdvReac Type Severity Reaction Status Date / Time No Known Allergies Allergy Verified 01/08/22 22:41 Review of Systems Review of Systems: All systems reviewed & are unremarkable except as noted in HPI and below PMFSH Past Medical History Medical History Anemia of chronic disease Chronic dermatitis Chronic kidney disease, stage 4 (severe) Baseline creatinine appears to be around 2.30. He is followed by java flex developer in [place]. Congestive heart failure Echocardiogram in June 2019 showed normal left ventricular size, mild concentric left ventricular hypertrophy, impaired diastolic relaxation grade 1, ejection fraction visually estimated at 40 to 45%, akinetic apical segment, and hypokinesis of the apical anterior, apical lateral, and apical septum segments. Left atrium was moderately enlarged with mild mitral valve regurgitation. Mild pulmonary hypertension also noted with an estimated peak RVSP of 36 mmHg. Coronary artery disease With history of stent x1. Depression with anxiety Gout Hyperlipidemia Hypertension Obstructive sleep apnea Polycystic kidney disease Rheumatoid arthritis Surgical History Surgical History History of coronary artery stent placement Bare metal stent to the LAD in 1996. History of inguinal hernia repair Family History Family History Mother Hypertension Family history of lung cancer Family history of coronary artery disease Sibling Family history of polycystic kidney disease Father Family history of elevated blood lipids Family history of coronary artery disease Patient's father is Social History Social History Social History: Surrogate decision maker: José Escalante, son. Code status: Full code. Smoking status: Never smoker Second hand tobacco smoke exposure: No Alcohol intake: current Drinks per week: 6 Alcohol use details: Beer Substance use: never Substance use type:
[2022-01-09] VITALS (17 sets, daily range): BP systolic 106–142; BP diastolic 72–91; PULSE 82–129; RESP 17–21; TEMP 37.7–38.7; O2SAT 91–98; BMI 32.7
[2022-01-09] MEDS: FUROSEMIDE INJ 40 MG/4 ML VIAL IV PUSH (00:13)
--- NOTE | 2022-01-09 00:25 | ECG_ITS ---
Measurements Intervals [place] Rate: 91 P: 9 [place]: 178 QRS: -44 QRSD: 93 T: 37 QT: 359 QTc: 443 Interpretive Statements SINUS RHYTHM VOLTAGE CRITERIA FOR LVH CANNOT RULE OUT SEPTAL INFARCT, AGE INDETERMINATE INFERIOR INFARCT, AGE INDETERMINATE BASELINE WANDER- II, III ABNORMAL ECG Electronically Signed On 01-09-2022 6:32:39 SALES SERVICE TECHNICIAN by Herve Alicia D.O.
--- NOTE | 2022-01-09 01:31 | PC.NURSE ---
pt to be admitted as an in-patient into room 211
--- NOTE | 2022-01-09 02:45 | ADMGEN ---
This patient, Armen Escalante, was admitted to 2nd Floor Room 211-1. Patient/family oriented to hospital policies and general routines including ID bracelet, bed and alarms, pain management, procedures, bathroom and other care routines, personal items, smoking policy, room service/diet, and visiting hours. Information on how to activate the Rapid Response Team has been discussed. Patient/Family are encouraged to report perceived risks to care and to ask questions if they do not understand what they are told or what they should do.
[2022-01-09] MEDS: CLOPIDOGREL BISULFATE 75 MG TABLET PO (08:36)
[2022-01-09] MEDS: VITAMIN B COMPLEX CAPSULE 1 CAP PO (08:36)
[2022-01-09] MEDS: allopurinoL 300 MG TABLET PO (08:36)
[2022-01-09] MEDS: carvediloL 12.5 MG TABLET 25 MG PO ×2 (08:37→20:37)
[2022-01-09] MEDS: ATORVASTATIN 40 MG TABLET PO (08:37)
[2022-01-09] MEDS: CITALOPRAM HYDROBROMIDE 20 MG TABLET PO (08:37)
[2022-01-09] MEDS: MONTELUKAST SODIUM 10 MG TABLET PO (08:37)
--- NOTE | 2022-01-09 12:03 | PM.IMHP ---
H&P: HPI History of Present Illness Date/Time: 01/09/22 12:03 this is a 76-year-old male who presented to emergency department with complaints of weakness, fatigue, decreased appetite and shortness of breath. Patient has a past medical history of anemia of chronic disease, CKD stage IV, congestive heart failure, CAD, depression anxiety, gout, hyperlipidemia, hypertension, BPH, polycystic kidney disease, and rheumatoid arthritis. Patient tested positive for COVID 01/03/2022. Patient was discharged on 01/05/2022. At that time patient was not treated with remdesivir due to his GFR he had also been recently treated with remdesivir for COVID in October. Patient also required 2 L nasal cannula. Patient notes that he resides with his sons and after discharge patient remain extremely fatigued with a decreased appetite and continues to have shortness of breath so he was brought back to our emergency department. On admission patient's temperature was 101.6, heart rate 124, 18, 96% on 2 L nasal cannula, 122/86, WBC 16.9, hemoglobin 10.6, hematocrit 33.7, platelets 357, sodium 139, potassium 4.1, BUN 45, creatinine 2.94, glucose 131, lactic acid 1.1, AST 41, ALT 60, CRP greater than 10.6, BNP 71481, chest x-ray diffuse lung disease with mild improvement consistent with COVID-19 pneumonia EKG sinus rhythm with a heart rate of 91. Patient will be admitted and treated for Covid pneumonia. Patient notes that he continues to feel fatigued with shortness of breath , with decreased appetite a uncontrollable nonproductive cough with back pain .the patient denies CP, palpitation, extremity numbness, lightheadedness, dizziness, constipation, diarrhea, chills, or fever. Chief Complaint: Fatigue, shortness of breath, decreased appetite Review of Systems Review of Systems: A 14 organ system Review of Systems was performed and pertinent positives included in the HPI, otherwise remaining ROS is negative. [facility] Past Medical History Medical History Anemia of chronic disease Chronic dermatitis Chronic kidney disease, stage 4 (severe) Baseline creatinine appears to be around 2.30. He is followed by machine setter and repairer in [place]. Congestive heart failure Echocardiogram in June 2019 showed normal left ventricular size, mild concentric left ventricular hypertrophy, impaired diastolic relaxation grade 1, ejection fraction visually estimated at 40 to 45%, akinetic apical segment, and hypokinesis of the apical anterior, apical lateral, and apical septum segments. Left atrium was moderately enlarged with mild mitral valve regurgitation. Mild pulmonary hypertension also noted with an estimated peak RVSP of 36 mmHg. Coronary artery disease With history of stent x1. Depression with anxiety Gout Hyperlipidemia Hypertension Obstructive sleep apnea Polycystic kidney disease Rheumatoid arthritis Surgical History Surgical History History of coronary artery stent placement Bare metal stent to the LAD in 1996. History of inguinal hernia repair Family History Family History Mother Hypertension Family history of lung cancer Family history of coronary artery disease Sibling Family history of polycystic kidney disease Father Family history of elevated blood lipids Family history of coronary artery disease Patient's father is Social History Social History Social History: Surrogate decision maker: José Escalante, son. Code status: Full code. Smoking status: Never smoker Second hand tobacco smoke exposure: No Alcohol intake: current Drinks per week: 6 Alcohol use details: Beer Substance use: never Substance use type: does not use Additional living arrangements comments: Patient lives with one of his 4 sons in [place]
[2022-01-09] MEDS: CALCIUM/VITAMIN D 250 MG TABLET 1 TABLET PO (12:11)
[2022-01-09] MEDS: METOPROLOL TARTRATE 6.25 MG TABLET PO (12:11)
[2022-01-09] MEDS: SACCHAROMYCES BOULARDII 250 MG CAPSULE PO ×2 (12:11→16:30)
[2022-01-09] MEDS: BENZONATATE 100 MG CAPSULE 200 MG PO ×2 (12:14→16:31)
[2022-01-09 13:28] LABS: NT Pro B Type Natriuretic Pept 8228 pg/mL (0-125)
[2022-01-09] MEDS: ENOXAPARIN 30 MG/0.3 ML SYRINGE SUB-Q (16:30)
[2022-01-09] MEDS: ACETAMINOPHEN 325 MG TABLET 650 MG PO (16:31)
[2022-01-09] MEDS: guaiFENesin 12 HR 600 MG TABCR 1200 MG PO (20:34)
[2022-01-09] MEDS: FELODIPINE 2.5 MG TABCR 5 MG PO (20:35)
[2022-01-09] MEDS: TAMSULOSIN HCL 0.4 MG CAPSULE PO (20:35)
[2022-01-09] MEDS: MIRTAZAPINE 15 MG TABLET 45 MG PO (20:36)
[2022-01-09] MEDS: MELATONIN 5 MG TABLET 10 MG PO (20:36)
[2022-01-09] MEDS: traZODone HCL 50 MG TABLET PO (20:37)
[2022-01-09] MEDS: BUDESONIDE/FORMOTEROL (*SP) 160-4.5 MCG 6 GM INH 2 PUFF INHALATION (20:38)
[2022-01-10] VITALS (14 sets, daily range): BP systolic 99–132; BP diastolic 65–80; PULSE 73–129; RESP 17–21; TEMP 35.7–38.3; O2SAT 89–94
[2022-01-10 05:32] LABS: Hematocrit 30.8 % (37.0-46.0); Hemoglobin 9.6 g/dL (12.4-15.3); Mean Corpuscular HGB Conc 31.2 g/dL (32.0-36.0); Mean Corpuscular Hemoglobin 28.2 pg (27.0-31.0); Mean Corpuscular Volume 90.6 fL (78.0-102.0); Mean Platelet Volume 10.2 fl (8.7-11.0); Platelet Count Result 316 K/mm3 (150-420); Red Cell Distribution Width 15.3 % (11.6-14.4); White Blood Count 15.4 K/mm3 (4.8-10.8)
[2022-01-10 06:14] LABS: Alanine Aminotransferase 64 U/L (16-63); Albumin Level 2.2 g/dL (3.4-5.0); Alkaline Phosphatase 57 U/L (46-116); Anion Gap 8 mmol/L (8-16); Aspartate Amino Transferase 56 U/L (15-37); Bilirubin,Total 0.5 mg/dL (0.00-1.00); Blood Urea Nitrogen 51 mg/dL (7-18); Calcium 8.5 mg/dL (8.5-10.1); Carbon Dioxide 29 mmol/L (21-32); Chloride 100 mmol/L (98-108); Estimated CRCL calculation 21 ml/min; Estimated Glomerular Filt Rate 19; Glucose 112 mg/dL (70-99); Magnesium 2.3 mg/dL (1.8-2.4); Osmolality Calculated 298 mOsm/kg (285-295); Potassium 3.9 mmol/L (3.5-5.1); Sodium 137 mmol/L (136-145); Total Protein 6.7 g/dL (6.4-8.2)
[2022-01-10] MEDS: CALCIUM/VITAMIN D 250 MG TABLET 1 TABLET PO (09:50)
[2022-01-10] MEDS: BENZONATATE 100 MG CAPSULE 200 MG PO ×3 (09:51→17:03)
[2022-01-10] MEDS: DEXAMETHASONE 2 MG TABLET 6 MG PO (09:51)
[2022-01-10] MEDS: carvediloL 12.5 MG TABLET 25 MG PO ×2 (09:52→20:47)
[2022-01-10] MEDS: CITALOPRAM HYDROBROMIDE 20 MG TABLET PO (09:52)
[2022-01-10] MEDS: CLOPIDOGREL BISULFATE 75 MG TABLET PO (09:52)
[2022-01-10] MEDS: VITAMIN B COMPLEX CAPSULE 1 CAP PO (09:52)
[2022-01-10] MEDS: guaiFENesin 12 HR 600 MG TABCR 1200 MG PO ×2 (09:52→20:47)
[2022-01-10] MEDS: MONTELUKAST SODIUM 10 MG TABLET PO (09:53)
[2022-01-10] MEDS: allopurinoL 300 MG TABLET PO (09:53)
[2022-01-10] MEDS: SACCHAROMYCES BOULARDII 250 MG CAPSULE PO ×2 (09:53→17:04)
[2022-01-10] MEDS: ATORVASTATIN 40 MG TABLET PO (09:53)
[2022-01-10] MEDS: BUDESONIDE/FORMOTEROL (*SP) 160-4.5 MCG 6 GM INH 2 PUFF INHALATION ×2 (09:55→20:48)
--- NOTE | 2022-01-10 11:59 | P.PN_ITS ---
Progress Note: A&P Assessment and Plan (1) Pneumonia due to COVID-19 virus: Code(s): U07.1 - COVID-19; J12.82 - Pneumonia due to coronavirus disease 2018 Status: Acute Assessment and Plan: * Originally believed to be viral * Patient received 1 dose of Rocephin in the ED we will resume Rocephin D2 along with azithromycin D1 and vancomycin started * Chest x-ray indicates improved Covid pneumonia * Started Tessalon Perles, dexamethasone, guaifenesin, albuterol, and Symbicort * Continue supplementary oxygen and 2 L to keep sats above 90 * WBCs elevated at 16>15 patient presented with a temperature of 101.6 * Blood, sputum culture and MRSA pending * Lactic acid within normal limit, CRP>10.6 (2) Colon cancer screening: Code(s): Z12.11 - Encounter for screening for malignant neoplasm of colon Status: Acute Assessment and Plan: * Patient notes that his cologuard was positive * He was scheduled for colonoscopy but due to his illness he was not able to complete his colonoscopy (3) Obstructive sleep apnea: Code(s): G47.33 - Obstructive sleep apnea (adult) (pediatric) Status: Acute Assessment and Plan: * Continue supplementary oxygen * Continue CPAP (4) Anemia of chronic disease: Code(s): D63.8 - Anemia in other chronic diseases classified elsewhere Status: Acute Assessment and Plan: * Secondary to CKD stage IV * Hemoglobin appears to be between9-11 currently 10.6>9.6 * Daily labs * No obvious bleeding noted (5) Chronic kidney disease, stage 4 (severe): Code(s): N18.4 - Chronic kidney disease, stage 4 (severe) Status: Acute Assessment and Plan: * Baseline appears to be at 2.30 patient currently 2.94>3.15 GFR of 21>19 * Patient followed by flavorer in [place] he is scheduled to get a fistula placed on Wednesday * Will renal dose medication * Avoid nephrotoxic agents (6) Hypertension: Qualifiers: Hypertension type: essential hypertension Qualified Code(s): I10 - Essential (primary) hypertension Code(s): I10 - Essential (primary) hypertension Status: Acute Assessment and Plan: * Blood pressure 117/78 * Continue carvedilol * Vital signs as ordered * Will adjust medication as needed (7) Polycystic kidney disease: Code(s): Q61.3 - Polycystic kidney, unspecified Status: Acute Assessment and Plan: * For to chronic kidney disease (8) Rheumatoid arthritis: Code(s): M06.9 - Rheumatoid arthritis, unspecified Status: Acute Assessment and Plan: * Continue home medication (9) Congestive heart failure: Code(s): I50.9 - Heart failure, unspecified Status: Acute Assessment and Plan: * [id number] * Chest x-ray does not indicate pulmonary edema * Received Lasix 40 units IV push in ED * Cautiously diaphoresis patient due to end-stage kidney disease * Continue daily weights and strict I's and O's * BNP in a.m. * cardiac echo patient does show mildly reduced ejection fraction to 45% * carotid ultrasound normal less than 50% stenosis, (10) Coronary artery disease: Qualifiers: Coronary Disease-Associated Artery/Lesion type: [place] artery [place] vs. transplanted heart: [place] heart Associated angina: without angina Qualified Code(s): I25.10 - Atherosclerotic heart disease of [place] coronary artery without angina pectoris Code(s): I25.10 - Atherosclerotic heart disease of [place] coronary artery without angina pectoris Status: Acute Assessment and Pl
--- NOTE | 2022-01-10 11:59 | WPDPN ---
Progress Note: A&P Assessment and Plan (1) Pneumonia due to COVID-19 virus: Code(s): U07.1 - COVID-19; J12.82 - Pneumonia due to coronavirus disease 2019 Status: Acute Assessment and Plan: Originally believed to be viral Patient received 1 dose of Rocephin in the ED we will resume Rocephin D2 along with azithromycin D1 and vancomycin started Chest x-ray indicates improved Covid pneumonia Started Tessalon Perles, dexamethasone, guaifenesin, albuterol, and Symbicort Continue supplementary oxygen and 2 L to keep sats above 90 WBCs elevated at 16>15 patient presented with a temperature of 101.6 Blood, sputum culture and MRSA pending Lactic acid within normal limit, CRP>10.6 (2) Colon cancer screening: Code(s): Z12.11 - Encounter for screening for malignant neoplasm of colon Status: Acute Assessment and Plan: Patient notes that his cologuard was positive He was scheduled for colonoscopy but due to his illness he was not able to complete his colonoscopy (3) Obstructive sleep apnea: Code(s): G47.33 - Obstructive sleep apnea (adult) (pediatric) Status: Acute Assessment and Plan: Continue supplementary oxygen Continue CPAP (4) Anemia of chronic disease: Code(s): D63.8 - Anemia in other chronic diseases classified elsewhere Status: Acute Assessment and Plan: Secondary to CKD stage IV Hemoglobin appears to be between9-11 currently 10.6>9.6 Daily labs No obvious bleeding noted (5) Chronic kidney disease, stage 4 (severe): Code(s): N18.4 - Chronic kidney disease, stage 4 (severe) Status: Acute Assessment and Plan: Baseline appears to be at 2.30 patient currently 2.94>3.15 GFR of 21>19 Patient followed by wound specialist in [place] he is scheduled to get a fistula placed on Wednesday Will renal dose medication Avoid nephrotoxic agents (6) Hypertension: Qualifiers: Hypertension type: essential hypertension Qualified Code(s): I10 - Essential (primary) hypertension Code(s): I10 - Essential (primary) hypertension Status: Acute Assessment and Plan: Blood pressure 117/78 Continue carvedilol Vital signs as ordered Will adjust medication as needed (7) Polycystic kidney disease: Code(s): Q61.3 - Polycystic kidney, unspecified Status: Acute Assessment and Plan: For to chronic kidney disease (8) Rheumatoid arthritis: Code(s): M06.9 - Rheumatoid arthritis, unspecified Status: Acute Assessment and Plan: Continue home medication (9) Congestive heart failure: Code(s): I50.9 - Heart failure, unspecified Status: Acute Assessment and Plan: [id number] Chest x-ray does not indicate pulmonary edema Received Lasix 40 units IV push in ED Cautiously diaphoresis patient due to end-stage kidney disease Continue daily weights and strict I's and O's BNP in a.m. cardiac echo patient does show mildly reduced ejection fraction to 45% carotid ultrasound normal less than 50% stenosis, (10) Coronary artery disease: Qualifiers: Coronary Disease-Associated Artery/Lesion type: [place] artery [place] vs. transplanted heart: [place] heart Associated angina: without angina Qualified Code(s): I25.10 - Atherosclerotic heart disease of [place] coronary artery without angina pectoris Code(s): I25.10 - Atherosclerotic heart disease of [place] coronary artery without angina pectoris Status: Acute Assessment and Plan: Continue atorvastatin (11) Tachycardia: Code(s): R00.0 - Tachycardia, unspecified Status: Acute Assessment and Plan: Heart rate as high as 124 currently 101 Secondary to infection Continue telemetry Treat underlying cause Will continue to monitor Subjective Date/time seen: 01/10/22 11:59 patient notes that he feels a lot better. He was able to tolerate his meals and slept well o
[2022-01-10] MEDS: ACETAMINOPHEN 325 MG TABLET 650 MG PO (12:15)
[2022-01-10] MEDS: ENOXAPARIN 30 MG/0.3 ML SYRINGE SUB-Q (17:04)
[2022-01-10] MEDS: MIRTAZAPINE 15 MG TABLET 45 MG PO (20:46)
[2022-01-10] MEDS: FELODIPINE 2.5 MG TABCR 5 MG PO (20:46)
[2022-01-10] MEDS: TAMSULOSIN HCL 0.4 MG CAPSULE PO (20:48)
[2022-01-10] MEDS: traZODone HCL 50 MG TABLET PO (20:48)
[2022-01-10] MEDS: MELATONIN 5 MG TABLET 10 MG PO (20:48)
[2022-01-11] VITALS (12 sets, daily range): BP systolic 128–141; BP diastolic 70–87; PULSE 60–80; RESP 16–19; TEMP 35.9–36.8; O2SAT 92–95
--- NOTE | 2022-01-11 00:30 | PC.NURSE ---
Lab called to report gram positive cocci in clusters from aerobic bottle blood culture result
[2022-01-11 05:30] LABS: Hematocrit 30.3 % (37.0-46.0); Hemoglobin 9.6 g/dL (12.4-15.3); Mean Corpuscular HGB Conc 31.7 g/dL (32.0-36.0); Mean Corpuscular Hemoglobin 28.5 pg (27.0-31.0); Mean Corpuscular Volume 89.9 fL (78.0-102.0); Mean Platelet Volume 10.2 fl (8.7-11.0); Platelet Count Result 253 K/mm3 (150-420); Red Blood Count 3.37 M/mm3 (4.70-6.10); Red Cell Distribution Width 14.6 % (11.6-14.4); White Blood Count 9.6 K/mm3 (4.8-10.8)
[2022-01-11 05:55] LABS: Alanine Aminotransferase 72 U/L (16-63); Albumin Level 2.1 g/dL (3.4-5.0); Alkaline Phosphatase 64 U/L (46-116); Anion Gap 7 mmol/L (8-16); Aspartate Amino Transferase 50 U/L (15-37); Bilirubin,Total 0.4 mg/dL (0.00-1.00); Blood Urea Nitrogen 62 mg/dL (7-18); Calcium 8.7 mg/dL (8.5-10.1); Carbon Dioxide 30 mmol/L (21-32); Chloride 99 mmol/L (98-108); Estimated CRCL calculation 21 ml/min; Estimated Glomerular Filt Rate 19; Glucose 247 mg/dL (70-99); Magnesium 2.7 mg/dL (1.8-2.4); NT Pro B Type Natriuretic Pept 6297 pg/mL (0-125); Osmolality Calculated 307 mOsm/kg (285-295); Potassium 3.7 mmol/L (3.5-5.1); Sodium 136 mmol/L (136-145)
[2022-01-11] MEDS: CALCIUM/VITAMIN D 250 MG TABLET 1 TABLET PO (09:56)
[2022-01-11] MEDS: CITALOPRAM HYDROBROMIDE 20 MG TABLET PO (09:57)
[2022-01-11] MEDS: SACCHAROMYCES BOULARDII 250 MG CAPSULE PO ×2 (09:57→17:21)
[2022-01-11] MEDS: carvediloL 12.5 MG TABLET 25 MG PO ×2 (09:57→21:53)
[2022-01-11] MEDS: ATORVASTATIN 40 MG TABLET PO (09:57)
[2022-01-11] MEDS: BENZONATATE 100 MG CAPSULE 200 MG PO ×3 (09:57→17:09)
[2022-01-11] MEDS: CLOPIDOGREL BISULFATE 75 MG TABLET PO (09:58)
[2022-01-11] MEDS: allopurinoL 300 MG TABLET PO (09:58)
[2022-01-11] MEDS: MONTELUKAST SODIUM 10 MG TABLET PO (09:58)
[2022-01-11] MEDS: DEXAMETHASONE 2 MG TABLET 6 MG PO (09:58)
[2022-01-11] MEDS: VITAMIN B COMPLEX CAPSULE 1 CAP PO (09:58)
[2022-01-11] MEDS: guaiFENesin 12 HR 600 MG TABCR 1200 MG PO ×2 (09:58→21:54)
[2022-01-11] MEDS: BUDESONIDE/FORMOTEROL (*SP) 160-4.5 MCG 6 GM INH 2 PUFF INHALATION ×2 (09:59→21:50)
--- NOTE | 2022-01-11 11:34 | P.PN_ITS ---
Progress Note: A&P Assessment and Plan (1) Pneumonia due to COVID-19 virus: Code(s): U07.1 - COVID-19; J12.82 - Pneumonia due to coronavirus disease 2018 Status: Acute Assessment and Plan: * Originally believed to be virl * Patient received 1 dose of Rocephin in the ED we will resume Rocephin D3 along with azithromycin D2 , vancomycin discontinue sputum culture and MRSA negative * Chest x-ray indicates improved Covid pneumonia * Started Tessalon Perles, dexamethasone, guaifenesin, albuterol, and Symbicort * Continue supplementary oxygen and 2 L to keep sats above 90 * WBCs elevated at 16>15> patient presently afebrile * Blood, sputum culture and MRSA Neg NGTD * Lactic acid within normal limit, CRP>10.6 * Blood culture with the growth of Gram positive cocci in clusters started clindamycin for the treatment of staph aureus. Awaiting blood culture3 (2) Colon cancer screening: Code(s): Z12.11 - Encounter for screening for malignant neoplasm of colon Status: Acute Assessment and Plan: * Patient notes that his cologuard was positive * He was scheduled for colonoscopy but due to his illness he was not able to complete his colonoscopy (3) Obstructive sleep apnea: Code(s): G47.33 - Obstructive sleep apnea (adult) (pediatric) Status: Acute Assessment and Plan: * Continue supplementary oxygen * Continue CPAP (4) Anemia of chronic disease: Code(s): D63.8 - Anemia in other chronic diseases classified elsewhere Status: Acute Assessment and Plan: * Secondary to CKD stage IV * Hemoglobin appears to be between9-11 currently 10.6>9.6>9.6 * Daily labs * No obvious bleeding noted (5) Chronic kidney disease, stage 4 (severe): Code(s): N18.4 - Chronic kidney disease, stage 4 (severe) Status: Acute Assessment and Plan: * Baseline appears to be at 2.30 patient currently 2.94>3.15>3.23 GFR of 21>19>19 * Patient followed by manager long term care in [place] he is scheduled to get a fistula placed on Wednesday * Will renal dose medication * Avoid nephrotoxic agents (6) Hypertension: Qualifiers: Hypertension type: essential hypertension Qualified Code(s): I10 - Essential (primary) hypertension Code(s): I10 - Essential (primary) hypertension Status: Acute Assessment and Plan: * Blood pressure 130/81 * Continue carvedilol * Vital signs as ordered * Will adjust medication as needed (7) Polycystic kidney disease: Code(s): Q61.3 - Polycystic kidney, unspecified Status: Acute Assessment and Plan: * chronic kidney disease (8) Rheumatoid arthritis: Code(s): M06.9 - Rheumatoid arthritis, unspecified Status: Acute Assessment and Plan: * Continue home medication (9) Congestive heart failure: Code(s): I50.9 - Heart failure, unspecified Status: Acute Assessment and Plan: * [id number] * Chest x-ray does not indicate pulmonary edema * Received Lasix 40 units IV push in ED * Cautiously diaphoresis patient due to end-stage kidney disease * Continue daily weights and strict I's and O's * BNP in a.m. * cardiac echo patient does show mildly reduced ejection fraction to 45% * carotid ultrasound normal less than 50% stenosis, (10) Coronary artery disease: Qualifiers: Coronary Disease-Associated Artery/Lesion type: [place] artery [place] vs. transplanted heart: [place] heart Associated angina: without angina Qualified Code(s): I25.10 - Atherosclerotic heart disease of [place] coronary artery wi
--- NOTE | 2022-01-11 11:34 | WPDPN ---
Progress Note: A&P Assessment and Plan (1) Pneumonia due to COVID-19 virus: Code(s): U07.1 - COVID-19; J12.82 - Pneumonia due to coronavirus disease 2019 Status: Acute Assessment and Plan: Originally believed to be virl Patient received 1 dose of Rocephin in the ED we will resume Rocephin D3 along with azithromycin D2 , vancomycin discontinue sputum culture and MRSA negative Chest x-ray indicates improved Covid pneumonia Started Tessalon Perles, dexamethasone, guaifenesin, albuterol, and Symbicort Continue supplementary oxygen and 2 L to keep sats above 90 WBCs elevated at 16>15> patient presently afebrile Blood, sputum culture and MRSA Neg NGTD Lactic acid within normal limit, CRP>10.6 Blood culture with the growth of Gram positive cocci in clusters started clindamycin for the treatment of staph aureus. Awaiting blood culture3 (2) Colon cancer screening: Code(s): Z12.11 - Encounter for screening for malignant neoplasm of colon Status: Acute Assessment and Plan: Patient notes that his cologuard was positive He was scheduled for colonoscopy but due to his illness he was not able to complete his colonoscopy (3) Obstructive sleep apnea: Code(s): G47.33 - Obstructive sleep apnea (adult) (pediatric) Status: Acute Assessment and Plan: Continue supplementary oxygen Continue CPAP (4) Anemia of chronic disease: Code(s): D63.8 - Anemia in other chronic diseases classified elsewhere Status: Acute Assessment and Plan: Secondary to CKD stage IV Hemoglobin appears to be between9-11 currently 10.6>9.6>9.6 Daily labs No obvious bleeding noted (5) Chronic kidney disease, stage 4 (severe): Code(s): N18.4 - Chronic kidney disease, stage 4 (severe) Status: Acute Assessment and Plan: Baseline appears to be at 2.30 patient currently 2.94>3.15>3.23 GFR of 21>19>19 Patient followed by general practice in [place] he is scheduled to get a fistula placed on Wednesday Will renal dose medication Avoid nephrotoxic agents (6) Hypertension: Qualifiers: Hypertension type: essential hypertension Qualified Code(s): I10 - Essential (primary) hypertension Code(s): I10 - Essential (primary) hypertension Status: Acute Assessment and Plan: Blood pressure 130/81 Continue carvedilol Vital signs as ordered Will adjust medication as needed (7) Polycystic kidney disease: Code(s): Q61.3 - Polycystic kidney, unspecified Status: Acute Assessment and Plan: chronic kidney disease (8) Rheumatoid arthritis: Code(s): M06.9 - Rheumatoid arthritis, unspecified Status: Acute Assessment and Plan: Continue home medication (9) Congestive heart failure: Code(s): I50.9 - Heart failure, unspecified Status: Acute Assessment and Plan: [id number] Chest x-ray does not indicate pulmonary edema Received Lasix 40 units IV push in ED Cautiously diaphoresis patient due to end-stage kidney disease Continue daily weights and strict I's and O's BNP in a.m. cardiac echo patient does show mildly reduced ejection fraction to 45% carotid ultrasound normal less than 50% stenosis, (10) Coronary artery disease: Qualifiers: Coronary Disease-Associated Artery/Lesion type: [place] artery [place] vs. transplanted heart: [place] heart Associated angina: without angina Qualified Code(s): I25.10 - Atherosclerotic heart disease of [place] coronary artery without angina pectoris Code(s): I25.10 - Atherosclerotic heart disease of [place] coronary artery without angina pectoris Status: Acute Assessment and Plan: Continue atorvastatin (11) Tachycardia: Code(s): R00.0 - Tachycardia, unspecified Status: Acute Assessment and Plan: Resolved Heart rate as high as 124 currently 101 Secondary to infection Continue telemetry [place]
[2022-01-11] MEDS: CLINDAMYCIN 600 MG/D5W 50 ML 600 MG/50 ML PIGGYBACK 100 MG IVPB ×2 (12:52→20:38)
[2022-01-11] MEDS: ENOXAPARIN 30 MG/0.3 ML SYRINGE SUB-Q (17:10)
[2022-01-11] MEDS: TAMSULOSIN HCL 0.4 MG CAPSULE PO (21:51)
[2022-01-11] MEDS: traZODone HCL 50 MG TABLET PO (21:52)
[2022-01-11] MEDS: MELATONIN 5 MG TABLET 10 MG PO (21:52)
[2022-01-11] MEDS: MIRTAZAPINE 15 MG TABLET 45 MG PO (21:52)
[2022-01-11] MEDS: FELODIPINE 2.5 MG TABCR 5 MG PO (21:54)
[2022-01-12] VITALS (7 sets, daily range): BP systolic 129–130; BP diastolic 76–78; PULSE 60–78; RESP 14–20; TEMP 36.6–36.9; O2SAT 94–97
[2022-01-12] MEDS: CLINDAMYCIN 600 MG/D5W 50 ML 600 MG/50 ML PIGGYBACK 100 MG IVPB (04:55)
[2022-01-12 05:27] LABS: Basophils Absolute Auto 0.01 K/mm3 (0.00-0.10); Basophils Percent Auto 0.1 % (0.0-1.0); Hematocrit 30.1 % (37.0-46.0); Hemoglobin 9.5 g/dL (12.4-15.3); Immature Granulocyte Absolute 0.33 K/mm3 (0.00-0.00); Immature Granulocyte Percent A 2.3 % (0.0-0.0); Lymphocytes Absolute Auto 1.14 K/mm3 (1.10-4.50); Lymphocytes Percent Auto 7.9 % (18.0-42.0); Mean Corpuscular HGB Conc 31.6 g/dL (32.0-36.0); Mean Corpuscular Hemoglobin 28.3 pg (27.0-31.0); Mean Corpuscular Volume 89.6 fL (78.0-102.0); Mean Platelet Volume 10.2 fl (8.7-11.0); Monocytes Absolute Auto 0.66 K/mm3 (0.10-0.90); Monocytes Percent Auto 4.6 % (2.0-11.0); Neutrophils Absolute Auto 12.2 K/mm3 (1.7-7.2); Neutrophils Percent Auto 85.1 % (50.0-70.0); Platelet Count Result 334 K/mm3 (150-420); Red Blood Count 3.36 M/mm3 (4.70-6.10); Red Cell Distribution Width 14.6 % (11.6-14.4); White Blood Count 14.4 K/mm3 (4.8-10.8)
[2022-01-12 05:47] LABS: Alanine Aminotransferase 90 U/L (16-63); Albumin Level 2.2 g/dL (3.4-5.0); Alkaline Phosphatase 70 U/L (46-116); Anion Gap 9 mmol/L (8-16); Aspartate Amino Transferase 59 U/L (15-37); Bilirubin,Total 0.4 mg/dL (0.00-1.00); Blood Urea Nitrogen 67 mg/dL (7-18); CRP 9.3 mg/dL (0.0-0.9); Calcium 8.5 mg/dL (8.5-10.1); Carbon Dioxide 27 mmol/L (21-32); Chloride 101 mmol/L (98-108); Estimated CRCL calculation 23 ml/min; Estimated Glomerular Filt Rate 21; Glucose 223 mg/dL (70-99); Magnesium 2.9 mg/dL (1.8-2.4); NT Pro B Type Natriuretic Pept 2696 pg/mL (0-125); Osmolality Calculated 310 mOsm/kg (285-295); Potassium 3.9 mmol/L (3.5-5.1); Sodium 137 mmol/L (136-145); Total Protein 6.7 g/dL (6.4-8.2)
[2022-01-12 07:56] LABS: Glucose Point of Care 166 mg/dl (65-105)
[2022-01-12] MEDS: BUDESONIDE/FORMOTEROL (*SP) 160-4.5 MCG 6 GM INH 2 PUFF INHALATION (09:00)
[2022-01-12] MEDS: MONTELUKAST SODIUM 10 MG TABLET PO (09:46)
[2022-01-12] MEDS: DEXAMETHASONE 2 MG TABLET 6 MG PO (09:46)
[2022-01-12] MEDS: VITAMIN B COMPLEX CAPSULE 1 CAP PO (09:46)
[2022-01-12] MEDS: guaiFENesin 12 HR 600 MG TABCR 1200 MG PO (09:46)
[2022-01-12] MEDS: carvediloL 12.5 MG TABLET 25 MG PO (09:47)
[2022-01-12] MEDS: SACCHAROMYCES BOULARDII 250 MG CAPSULE PO (09:48)
[2022-01-12] MEDS: allopurinoL 300 MG TABLET PO (09:48)
[2022-01-12] MEDS: CALCIUM/VITAMIN D 250 MG TABLET 1 TABLET PO (09:48)
[2022-01-12] MEDS: BENZONATATE 100 MG CAPSULE 200 MG PO (09:48)
[2022-01-12] MEDS: CLOPIDOGREL BISULFATE 75 MG TABLET PO (09:48)
[2022-01-12] MEDS: ATORVASTATIN 40 MG TABLET PO (09:48)
[2022-01-12] MEDS: CITALOPRAM HYDROBROMIDE 20 MG TABLET PO (09:48)
--- NOTE | 2022-01-12 10:25 | P.DS_ITS ---
DS: Admitting Diagnosis Discharge Date 01/12/2022 Admitting Diagnosis Bacterial pneumonia DS: Discharge Diagnosis Discharge Diagnosis (1) Pneumonia due to COVID-19 virus: Code(s): U07.1 - COVID-19; J12.82 - Pneumonia due to coronavirus disease 2018 Status: Acute Assessment and Plan: * Originally believed to be virl * Patient received 1 dose of Rocephin in the ED we will resume Rocephin D3 along with azithromycin D2 , vancomycin discontinue sputum culture and MRSA negative * Chest x-ray indicates improved Covid pneumonia * Started Tessalon Perles, dexamethasone, guaifenesin, albuterol, and Symbicort * Continue supplementary oxygen and 2 L to keep sats above 90 * WBCs elevated at 16>15> patient presently afebrile * Blood, sputum culture and MRSA Neg NGTD * Lactic acid within normal limit, CRP>10.6 * Blood culture with the growth of coag negative Staphylococcus patient received vancomycin as an inpatient we will discharge home with Cipro x10 days (2) Colon cancer screening: Code(s): Z12.11 - Encounter for screening for malignant neoplasm of colon Status: Acute Assessment and Plan: * Patient notes that his cologuard was positive * He was scheduled for colonoscopy but due to his illness he was not able to complete his colonoscopy (3) Obstructive sleep apnea: Code(s): G47.33 - Obstructive sleep apnea (adult) (pediatric) Status: Acute Assessment and Plan: * Continue supplementary oxygen * Continue CPAP * Patient will need to arrange to get a new CPAP (4) Anemia of chronic disease: Code(s): D63.8 - Anemia in other chronic diseases classified elsewhere Status: Acute Assessment and Plan: * Secondary to CKD stage IV * Hemoglobin appears to be between9-11 currently 10.6>9.6>9.6>9.5 * Daily labs * No obvious bleeding noted (5) Chronic kidney disease, stage 4 (severe): Code(s): N18.4 - Chronic kidney disease, stage 4 (severe) Status: Acute Assessment and Plan: * Baseline appears to be at 2.30 patient currently 2.94>3.15>3.23>2.96GFR of 21>19>19>21 * Patient followed by hot stick man in [place] he is scheduled to get a fistula placed on Wednesday * Will renal dose medication * Avoid nephrotoxic agents (6) Hypertension: Qualifiers: Hypertension type: essential hypertension Qualified Code(s): I10 - Essential (primary) hypertension Code(s): I10 - Essential (primary) hypertension Status: Acute Assessment and Plan: * Blood pressure 130/78 * Continue carvedilol * Vital signs as ordered * Will adjust medication as needed (7) Polycystic kidney disease: Code(s): Q61.3 - Polycystic kidney, unspecified Status: Acute Assessment and Plan: * chronic kidney disease (8) Rheumatoid arthritis: Code(s): M06.9 - Rheumatoid arthritis, unspecified Status: Acute Assessment and Plan: * Continue home medication (9) Congestive heart failure: Code(s): I50.9 - Heart failure, unspecified Status: Acute Assessment and Plan: * [id number] * Chest x-ray does not indicate pulmonary edema * Received Lasix 40 units IV push in ED * Cautiously diaphoresis patient due to end-stage kidney disease * Continue daily weights and strict I's and O's * BNP in a.m. * cardiac echo patient does show mildly reduced ejection fraction to 45% * carotid ultrasound normal less than 50% stenosis, (10) Coronary artery disease: Qualifiers: Coronary Disease-Associated Artery/Lesion ty
--- NOTE | 2022-01-12 10:25 | PM.DS ---
DS: Admitting Diagnosis Discharge Date 01/12/2022 Admitting Diagnosis Bacterial pneumonia DS: Discharge Diagnosis Discharge Diagnosis (1) Pneumonia due to COVID-19 virus: Code(s): U07.1 - COVID-19; J12.82 - Pneumonia due to coronavirus disease 2018 Status: Acute Assessment and Plan: Originally believed to be virl Patient received 1 dose of Rocephin in the ED we will resume Rocephin D3 along with azithromycin D2 , vancomycin discontinue sputum culture and MRSA negative Chest x-ray indicates improved Covid pneumonia Started Tessalon Perles, dexamethasone, guaifenesin, albuterol, and Symbicort Continue supplementary oxygen and 2 L to keep sats above 90 WBCs elevated at 16>15> patient presently afebrile Blood, sputum culture and MRSA Neg NGTD Lactic acid within normal limit, CRP>10.6 Blood culture with the growth of coag negative Staphylococcus patient received vancomycin as an inpatient we will discharge home with Cipro x10 days (2) Colon cancer screening: Code(s): Z12.11 - Encounter for screening for malignant neoplasm of colon Status: Acute Assessment and Plan: Patient notes that his cologuard was positive He was scheduled for colonoscopy but due to his illness he was not able to complete his colonoscopy (3) Obstructive sleep apnea: Code(s): G47.33 - Obstructive sleep apnea (adult) (pediatric) Status: Acute Assessment and Plan: Continue supplementary oxygen Continue CPAP Patient will need to arrange to get a new CPAP (4) Anemia of chronic disease: Code(s): D63.8 - Anemia in other chronic diseases classified elsewhere Status: Acute Assessment and Plan: Secondary to CKD stage IV Hemoglobin appears to be between9-11 currently 10.6>9.6>9.6>9.5 Daily labs No obvious bleeding noted (5) Chronic kidney disease, stage 4 (severe): Code(s): N18.4 - Chronic kidney disease, stage 4 (severe) Status: Acute Assessment and Plan: Baseline appears to be at 2.30 patient currently 2.94>3.15>3.23>2.96GFR of 21>19>19>21 Patient followed by director digital sales in [place] he is scheduled to get a fistula placed on Wednesday Will renal dose medication Avoid nephrotoxic agents (6) Hypertension: Qualifiers: Hypertension type: essential hypertension Qualified Code(s): I10 - Essential (primary) hypertension Code(s): I10 - Essential (primary) hypertension Status: Acute Assessment and Plan: Blood pressure 130/78 Continue carvedilol Vital signs as ordered Will adjust medication as needed (7) Polycystic kidney disease: Code(s): Q61.3 - Polycystic kidney, unspecified Status: Acute Assessment and Plan: chronic kidney disease (8) Rheumatoid arthritis: Code(s): M06.9 - Rheumatoid arthritis, unspecified Status: Acute Assessment and Plan: Continue home medication (9) Congestive heart failure: Code(s): I50.9 - Heart failure, unspecified Status: Acute Assessment and Plan: [id number] Chest x-ray does not indicate pulmonary edema Received Lasix 40 units IV push in ED Cautiously diaphoresis patient due to end-stage kidney disease Continue daily weights and strict I's and O's BNP in a.m. cardiac echo patient does show mildly reduced ejection fraction to 45% carotid ultrasound normal less than 50% stenosis, (10) Coronary artery disease: Qualifiers: Coronary Disease-Associated Artery/Lesion type: [place] artery [place] vs. transplanted heart: [place] heart Associated angina: without angina Qualified Code(s): I25.10 - Atherosclerotic heart disease of [place] coronary artery without angina pectoris Code(s): I25.10 - Atherosclerotic heart disease of [place] coronary artery without angina pectoris Status: Acute Assessment and Plan: Continue atorvastatin (11) Tachycardia: Code(s): R00.0 - Tachycardi
--- NOTE | 2022-01-12 15:08 | PC.NURSE ---
Pt discharged to home. Rn instructed pt regarding medication changes, medication prescriptions, diet and CPAP use. Pt verbalized understanding. RN took pt to family car via .
--- NOTE | 2022-01-21 10:28 | PC.NURSE ---
Unable to contact for discharge call back.
== END 2022-01-12 14:40 | disposition home or self-care (01) | DRG 177 ==
LOC: CHSED 23:52 → CHS2ND 01-09 07:26
PROVIDERS: Nurse Practitioner; Admitting Provider Emergency Medicine; Emergency Provider Emergency Medicine; PCP Internal Medicine; Visit Provider Emergency Medicine
DX: U07.1 COVID-19 (principal); J12.82 Pneumonia due to coronavirus disease 2019; J15.29 Pneumonia due to other staphylococcus; R78.81 Bacteremia; I13.0 Hypertensive heart and chronic kidney disease with heart failure and stage 1 through stage 4 chronic kidney disease, or unspecified chronic kidney disease; N18.4 Chronic kidney disease, stage 4 (severe); Q61.3 Polycystic kidney, unspecified; I50.9 Heart failure, unspecified; I25.10 Atherosclerotic heart disease of native coronary artery without angina pectoris; D63.8 Anemia in other chronic diseases classified elsewhere; E78.5 Hyperlipidemia, unspecified; N40.0 Benign prostatic hyperplasia without lower urinary tract symptoms; M10.9 Gout, unspecified; M06.9 Rheumatoid arthritis, unspecified; G47.33 Obstructive sleep apnea (adult) (pediatric); R19.5 Other fecal abnormalities; F41.9 Anxiety disorder, unspecified; F32.A Depression, unspecified; Z95.5 Presence of coronary angioplasty implant and graft
CPT/HCPCS: 36415; 71045; 80053; 82948; 83605; 83735; 83880; 85025; 85027; 86140; 87040; 87070; 87081; 87147; 87186; 87205; 93005; 94660; 97161; 99285; A9270; J0456; J0696; J1650; J1940; J3370; J8540

== ENCOUNTER 2022-01-21 08:01 | Outpatient (CLI) | payer MEDICARE, MEDICAID, SELFPAY ==
--- NOTE | ~2022-01-21 | XR_ITS ---
XR chest 2V 01/21/2022 08:26 Indication: Follow-up Covid pneumonia Procedure: 2 view chest Comparison: 01/08/2022 Findings: There has been near complete resolution of patchy bilateral airspace disease, consistent wi th resolving pneumonia. No pleural effusion or pneumothorax. No acute osseous abnormality. No pleural effusion or pneumothorax. No acute osseous abnormality. Impression: 1: Near-complete resolution of patchy bilateral pneumonia. Reviewed, dictated and finalized at location B. MBLY MEMBER Impression: 1: Near-complete resolution of patchy bilateral pneumonia.
[2022-01-21 08:29] LABS: Basophils Absolute Auto 0.02 K/mm3 (0.00-0.10); Basophils Percent Auto 0.1 % (0.0-1.0); Hemoglobin 10.7 g/dL (12.4-15.3); Immature Granulocyte Absolute 0.33 K/mm3 (0.00-0.00); Immature Granulocyte Percent A 2.4 % (0.0-0.0); Lymphocytes Absolute Auto 3.14 K/mm3 (1.10-4.50); Mean Corpuscular HGB Conc 32.4 g/dL (32.0-36.0); Mean Corpuscular Hemoglobin 29.8 pg (27.0-31.0); Mean Corpuscular Volume 91.9 fL (78.0-102.0); Mean Platelet Volume 9.4 fl (8.7-11.0); Monocytes Absolute Auto 0.73 K/mm3 (0.10-0.90); Monocytes Percent Auto 5.4 % (2.0-11.0); Neutrophils Absolute Auto 9.4 K/mm3 (1.7-7.2); Neutrophils Percent Auto 69.1 % (50.0-70.0); Platelet Count Result 257 K/mm3 (150-420); Red Blood Count 3.59 M/mm3 (4.70-6.10); Red Cell Distribution Width 16.8 % (11.6-14.4); White Blood Count 13.6 K/mm3 (4.8-10.8)
[2022-01-21 09:13] LABS: Alanine Aminotransferase 39 U/L (16-63); Albumin Level 2.7 g/dL (3.4-5.0); Alkaline Phosphatase 67 U/L (46-116); Anion Gap 9 mmol/L (8-16); Aspartate Amino Transferase 19 U/L (15-37); Bilirubin,Total 0.4 mg/dL (0.00-1.00); Blood Urea Nitrogen 56 mg/dL (7-18); Calcium 7.8 mg/dL (8.5-10.1); Carbon Dioxide 29 mmol/L (21-32); Chloride 107 mmol/L (98-108); Estimated Glomerular Filt Rate 25; Glucose 98 mg/dL (70-99); NT Pro B Type Natriuretic Pept 2995 pg/mL (0-125); Osmolality Calculated 315 mOsm/kg (285-295); Potassium 4.2 mmol/L (3.5-5.1); Sodium 145 mmol/L (136-145); Total Protein 5.8 g/dL (6.4-8.2)
[2022-01-21 09:33] LABS: CRP < 0.2 mg/dL (0.0-0.9)
== END 2022-01-21 08:02 | disposition home or self-care (01) ==
LOC: CHSLAB 08:04
PROVIDERS: PCP Internal Medicine; Visit Provider Internal Medicine
DX: Z09 Encounter for follow-up examination after completed treatment for conditions other than malignant neoplasm (principal); Z86.16 Personal history of COVID-19; J18.9 Pneumonia, unspecified organism; I50.9 Heart failure, unspecified
CPT/HCPCS: 36415; 71046; 80053; 83880; 85025; 86140

== ENCOUNTER 2022-02-03 13:40 | Outpatient (CLI) | payer MEDICARE, SELFPAY ==
[2022-02-03 13:49] LABS: Basophils Absolute Auto 0.02 K/mm3 (0.00-0.10); Basophils Percent Auto 0.3 % (0.0-1.0); Eosinophils Absolute Auto 0.24 K/mm3 (0.02-0.50); Hematocrit 30.8 % (37.0-46.0); Hemoglobin 9.4 g/dL (12.4-15.3); Immature Granulocyte Absolute 0.03 K/mm3 (0.00-0.00); Immature Granulocyte Percent A 0.4 % (0.0-0.0); Lymphocytes Absolute Auto 1.27 K/mm3 (1.10-4.50); Lymphocytes Percent Auto 16.1 % (18.0-42.0); Mean Corpuscular HGB Conc 30.5 g/dL (32.0-36.0); Mean Corpuscular Hemoglobin 29.2 pg (27.0-31.0); Mean Corpuscular Volume 95.7 fL (78.0-102.0); Mean Platelet Volume 10.1 fl (8.7-11.0); Monocytes Absolute Auto 0.37 K/mm3 (0.10-0.90); Monocytes Percent Auto 4.7 % (2.0-11.0); Neutrophils Percent Auto 75.5 % (50.0-70.0); Platelet Count Result 174 K/mm3 (150-420); Red Blood Count 3.22 M/mm3 (4.70-6.10); Red Cell Distribution Width 16.3 % (11.6-14.4); White Blood Count 7.9 K/mm3 (4.8-10.8)
[2022-02-03 14:27] LABS: Alanine Aminotransferase 35 U/L (16-63); Albumin Level 2.5 g/dL (3.4-5.0); Alkaline Phosphatase 93 U/L (46-116); Anion Gap 9 mmol/L (8-16); Aspartate Amino Transferase 19 U/L (15-37); Bilirubin,Total 0.4 mg/dL (0.00-1.00); Blood Urea Nitrogen 34 mg/dL (7-18); Calcium 8.1 mg/dL (8.5-10.1); Carbon Dioxide 31 mmol/L (21-32); Chloride 103 mmol/L (98-108); Estimated Glomerular Filt Rate 22; Glucose 218 mg/dL (70-99); NT Pro B Type Natriuretic Pept 2320 pg/mL (0-125); Osmolality Calculated 310 mOsm/kg (285-295); Potassium 3.5 mmol/L (3.5-5.1); Sodium 143 mmol/L (136-145); Total Protein 5.6 g/dL (6.4-8.2)
== END 2022-02-17 13:41 | disposition home or self-care (01) ==
LOC: CHSLAB 13:42
PROVIDERS: PCP Internal Medicine; Visit Provider Internal Medicine
DX: R06.00 Dyspnea, unspecified (principal); I10 Essential (primary) hypertension
CPT/HCPCS: 36415; 80053; 83880; 85025

== ENCOUNTER 2022-04-21 10:00 | Outpatient (RCR) | payer MEDICARE, MEDICAID, SELFPAY | END 2022-04-29 23:59 | disposition home or self-care (01) | LOC: CHSSENLIFE 10:00 | PROVIDERS: PCP Internal Medicine; Visit Provider Psychiatry & Neurology Psychiatry | DX: F33.1 Major depressive disorder, recurrent, moderate (principal) | CPT/HCPCS: 90792; 90853; 99213; 99214; G0463 ==

== ENCOUNTER 2022-07-09 09:47 | Outpatient (CLI) | payer MEDICARE, MEDICAID, SELFPAY ==
--- NOTE | ~2022-07-09 | CT_ITS ---
EXAMINATION: CT brain wo con DATE: 07/09/2022 10:13 INDICATION: Injury in vertex from fall, with headache since TECHNIQUE: Computed tomography (CT) of the head was performed without intravenous contrast. The mA wa s adjusted according to patient size. Iterative reconstruction technique was employed. Exam dose: 60 5.33 mGy-cm total exam DLP. COMPARISON: 05/10/2020 CT brain FINDINGS: Stable prominent area of hypoattenuation in the left and right basal ganglia consistent wit h prominent perivascular spaces versus lacunar infarcts, stable since 05/10/2020. Bilateral vertebral artery, basilar artery and particularly prominent bilateral carotid siphon graduate intern al carotid artery calcifications. There is nonspecific diminished attenuation of the cerebral white m atter, likely due to chronic small vessel ischemic changes. Hemorrhage or recent cerebrovascular accident is detected. There is no midline shift or mass effect. No subdural or epidural hematoma. No fracture or bone destruction of the cranial vault. The mastoid air cells and included paranasal si nuses are unremarkable. IMPRESSION: Cerebral atherosclerosis and chronic small vessel ischemic changes of the cerebral white matter Stable perivascular spaces versus chronic lacunar infarcts of the basal ganglia No significant change since 05/10/2020 Reviewed, dictated and finalized at [facility]. Reviewed, dictated and finalized at location B.
== END 2022-07-09 09:48 | disposition home or self-care (01) ==
LOC: CHSIMG 09:51
PROVIDERS: PCP Internal Medicine; Visit Provider Internal Medicine
DX: S09.90XA Unspecified injury of head, initial encounter (principal); R51.9 Headache, unspecified
CPT/HCPCS: 70450

== ENCOUNTER 2022-07-28 10:00 | Outpatient (RCR) | payer MEDICARE, MEDICAID, SELFPAY | END 2022-08-04 23:59 | disposition home or self-care (01) | LOC: CHSSENLIFE 10:00 | PROVIDERS: PCP Internal Medicine; Visit Provider Psychiatry & Neurology Psychiatry | DX: F33.1 Major depressive disorder, recurrent, moderate (principal) | CPT/HCPCS: 90853; 99213; G0463 ==

== ENCOUNTER 2022-09-28 13:54 | Outpatient (CLI) | payer MEDICARE, SELFPAY ==
[2022-09-28 14:43] LABS: Influenza A QL RT-PCR Negative (Negative); Influenza B QL RT-PCR Negative (Negative); SARS-CoV-2 RNA PCR Negative (Negative)
== END 2022-09-28 13:55 | disposition home or self-care (01) ==
PROVIDERS: PCP Internal Medicine; Visit Provider Internal Medicine
DX: J06.9 Acute upper respiratory infection, unspecified (principal); Z20.822 Contact with and (suspected) exposure to COVID-19
CPT/HCPCS: 87502; U0003; U0005

== ENCOUNTER 2022-10-27 11:16 | Outpatient (CLI) | payer MEDICARE, MEDICAID, SELFPAY ==
[2022-10-27 12:05] LABS: SARS-CoV-2 RNA PCR Negative (Negative)
== END 2022-10-27 11:17 | disposition home or self-care (01) ==
LOC: CHSLAB 11:18
PROVIDERS: PCP Internal Medicine; Visit Provider Internal Medicine
DX: J06.9 Acute upper respiratory infection, unspecified (principal); Z20.822 Contact with and (suspected) exposure to COVID-19
CPT/HCPCS: U0003; U0005

== ENCOUNTER 2022-11-03 10:00 | Outpatient (RCR) | payer MEDICARE, MEDICAID, SELFPAY | END 2022-11-04 23:59 | disposition home or self-care (01) | LOC: CHSSENLIFE 10:00 | PROVIDERS: PCP Internal Medicine; Visit Provider Psychiatry & Neurology Psychiatry | DX: F33.1 Major depressive disorder, recurrent, moderate (principal) | CPT/HCPCS: 90853; 99213; G0463 ==

== ENCOUNTER 2023-02-04 10:00 | Outpatient (RCR) | payer MEDICARE, MEDICAID, SELFPAY | END 2023-02-10 23:59 | disposition home or self-care (01) | LOC: CHSSENLIFE 10:00 | PROVIDERS: PCP Internal Medicine; Visit Provider Psychiatry & Neurology Psychiatry | DX: F33.1 Major depressive disorder, recurrent, moderate (principal) | CPT/HCPCS: 90853; 99213; G0463 ==

== ENCOUNTER 2023-05-12 10:00 | Outpatient (RCR) | payer MEDICARE, MEDICAID, SELFPAY | END 2023-05-17 23:59 | disposition home or self-care (01) | LOC: CHSSENLIFE 10:00 | PROVIDERS: PCP Internal Medicine; Visit Provider Psychiatry & Neurology Psychiatry | DX: F33.1 Major depressive disorder, recurrent, moderate (principal) | CPT/HCPCS: 90853; 99213; G0463 ==

== ENCOUNTER 2023-06-03 10:00 | Outpatient (RCR) | payer MEDICARE, MEDICAID, SELFPAY | END 2023-06-03 15:22 | disposition home or self-care (01) | LOC: CHSSENLIFE 10:00 | PROVIDERS: PCP Internal Medicine; Visit Provider Psychiatry & Neurology Psychiatry | DX: F33.1 Major depressive disorder, recurrent, moderate (principal) | CPT/HCPCS: 90853; 99213; G0463 ==

== ENCOUNTER 2023-09-17 23:19 | Emergency (ER) | payer MEDICARE, MEDICAID, SELFPAY ==
--- NOTE | 2023-09-17 23:35 | ED.GENADULT ---
HPI - General Adult General Chief complaint: Wound/Laceration Stated complaint: bilat arm cellulitis Time Seen by Provider: 09/17/23 23:23 History of Present Illness HPI narrative: 78yo man with ESRD on HD presents with bilateral arm redness, itching, pain, heat. Started left antecubital fossa. Then started right antecubital fossa. Recurrent. Has eczema. Related Data Home Medications Medication Instructions Recorded Confirmed allopurinol 300 mg tablet 300 mg PO DAILY 03/25/20 09/17/23 carvedilol 25 mg tablet 25 mg PO BID 03/25/20 09/17/23 clopidogrel 75 mg tablet 75 mg PO DAILY 03/25/20 09/17/23 montelukast 10 mg tablet 10 mg PO DAILY 03/25/20 09/17/23 tamsulosin 0.4 mg capsule 0.4 mg PO HS 03/25/20 09/17/23 vitamin B complex (B 1 tablet PO DAILY 03/25/20 09/17/23 Complex-Vitamin B12 tablet) mirtazapine 15 mg tablet 45 mg PO HS 05/11/20 09/17/23 atorvastatin 40 mg tablet 40 mg PO DAILY 11/07/21 09/17/23 Calcium-Vitamin D 10 mcg PO DAILY 01/03/22 09/17/23 melatonin 10 mg PO HS 01/03/22 09/17/23 furosemide 40 mg tablet 40 mg PO BID 09/17/23 09/17/23 trazodone 50 mg tablet 50 mg PO HS 09/17/23 09/17/23 Allergies Allergy/AdvReac Type Severity Reaction Status Date / Time No Known Allergies Allergy Verified 01/08/22 22:41 Review of Systems Review of Systems: All systems reviewed & are unremarkable except as noted in HPI and below Constitutional: Constitutional: Denies chills and Denies fever(s) ENT: Denies dysphagia Cardiovascular: Cardiovascular: Denies chest pain Respiratory: Respiratory: Denies dyspnea [facility] Past Medical History Medical History Anemia of chronic disease Chronic dermatitis Chronic kidney disease, stage 4 (severe) Baseline creatinine appears to be around 2.30. He is followed by extrusion engineer in [place]. Congestive heart failure Echocardiogram in June 2019 showed normal left ventricular size, mild concentric left ventricular hypertrophy, impaired diastolic relaxation grade 1, ejection fraction visually estimated at 40 to 45%, akinetic apical segment, and hypokinesis of the apical anterior, apical lateral, and apical septum segments. Left atrium was moderately enlarged with mild mitral valve regurgitation. Mild pulmonary hypertension also noted with an estimated peak RVSP of 36 mmHg. Coronary artery disease With history of stent x1. Depression with anxiety Gout Hyperlipidemia Hypertension Obstructive sleep apnea Polycystic kidney disease Rheumatoid arthritis Surgical History Surgical History History of coronary artery stent placement Bare metal stent to the LAD in 1996. History of inguinal hernia repair Family History Family History Mother Hypertension Family history of lung cancer Family history of coronary artery disease Sibling Family history of polycystic kidney disease Father Family history of elevated blood lipids Family history of coronary artery disease Patient's father is Social History Social History Social History: Surrogate decision maker: José Escalante, son. Code status: Full code. Smoking status: Never smoker Second hand tobacco smoke exposure: No Alcohol intake: current Drinks per week: 6 Alcohol use details: Beer Substance use: never Substance use type: does not use Living arrangements: with family Additional living arrangements comments: Patient lives with one of his 4 sons in [place]. Additional occupation/education comments: Retired from working in sales. Gender identity (if verbalized by the patient): Male Spiritual care concerns: No Exam Const: General: healthy appearing and no acute distress Nutritional Appearance: well nourished Eyes: Conjunctivae: conjunctiva
[2023-09-17 23:46] VITALS: BP 151/83; PULSE 83; RESP 20; TEMP 36.6; O2SAT 98
[2023-09-17] MEDS: DOXYCYCLINE HYCLATE 100 MG TABLET PO (23:56)
[2023-09-17] MEDS: cefTRIAXone 1 GM, LIDOCAINE HCL 1% LOCAL INJ 2.1 ML IM (23:57)
[2023-09-18 00:28] VITALS: BP 140/76; PULSE 80; RESP 18; TEMP 36.9; O2SAT 98
--- NOTE | 2023-09-24 12:39 | PC.NURSE ---
reviewed blood cultures , no growth after 5 days.
== END 2023-09-18 00:31 | disposition home or self-care (01) ==
PROVIDERS: Emergency Provider Emergency Medicine; PCP Internal Medicine
DX: L03.113 Cellulitis of right upper limb (principal); L03.114 Cellulitis of left upper limb; I13.0 Hypertensive heart and chronic kidney disease with heart failure and stage 1 through stage 4 chronic kidney disease, or unspecified chronic kidney disease; N18.4 Chronic kidney disease, stage 4 (severe); I50.9 Heart failure, unspecified; E78.5 Hyperlipidemia, unspecified; Z79.899 Other long term (current) drug therapy
CPT/HCPCS: 36415; 87040; 96372; 99284; A9270; J0696; J1100

== ENCOUNTER 2023-11-17 14:25 | Outpatient (CLI) | payer MEDICARE, MEDICAID, SELFPAY ==
--- NOTE | ~2023-11-17 | XR_ITS ---
EXAMINATION: XR lumbar spine 2-3V DATE: 11/17/2023 15:02 INDICATION: Thoracic and lumbar spine pain. TECHNIQUE: 3 views of lumbar spine were obtained. COMPARISON: Lumbar spine radiographs 04/18/2019 FINDINGS: There is 9 degrees levocurvature of lumbar spine. There is mild chronic anterior wedging of T10-L2 vertebral bodies. There are endplate osteophytes at all levels. There is mildly decreased dis c height at L3-L4. There is multilevel facet joint osteoarthritis, severe in lower lumbar spine. IMPRESSION: 1. Mild lumbar spondylosis. Reviewed, dictated and finalized at location E. MET WORKER IMPRESSION: 1. Mild lumbar spondylosis.
--- NOTE | ~2023-11-17 | XR_ITS ---
EXAMINATION: XR thoracic spine 3V DATE: 11/17/2023 15:02 INDICATION: Thoracic and lumbar spine pain. TECHNIQUE: 3 views of thoracic spine were obtained. COMPARISON: None. FINDINGS: There is 5 degrees dextrocurvature of thoracic spine. There is 2 mm anterolisthesis of C4 o n C5 and C7 on T1. There is mild chronic anterior wedging of multiple vertebral bodies in lower thora cic spine. There is mildly decreased disc height at multiple levels in thoracic spine. There are endp late osteophytes at most levels. IMPRESSION: 1. Mild thoracic spondylosis. Reviewed, dictated and finalized at location E. OLOGY PROFESSOR
== END 2023-11-17 14:26 | disposition home or self-care (01) ==
LOC: CHSIMG 14:27
PROVIDERS: PCP Internal Medicine; Visit Provider Internal Medicine
DX: M54.50 Low back pain, unspecified (principal); M43.04 Spondylolysis, thoracic region; M43.06 Spondylolysis, lumbar region
CPT/HCPCS: 72072; 72100

== ENCOUNTER 2023-11-25 07:35 | Outpatient (RCR) | payer MEDICARE, MEDICAID, SELFPAY ==
--- NOTE | 2023-11-25 08:50 | OPREHPOC ---
Outpatient Therapy Plan of Care This is a Multidisciplinary Plan of Care that may contain components documented by all disciplines (PT, OT, and ST.) PT Problem 1 PT Problem #1 Knowledge Deficit PT Goal 1 Goal The patient will be independent in a home exercise program to continue after discharge from formal PT. Target Visit 10 PT Problem 2 PT Problem #2 Pain PT Goal 1 Goal The patient will report no greater than 4/10 low back pain with ADLs. Target Visit 10 PT Problem 3 PT Problem #3 Impaired Functional Mobil PT Goal 1 Goal The patient will demonstrate less than 50% self perceived disability per the Oswestry Back Index. The patient will ambulate 600 feet during the 6 minute walk test with 4/10 or less low back pain. Target Visit 10 PT Problem 4 PT Problem #4 Impaired Strength PT Goal 1 Goal The patient will demonstrate at least 4/5 strength in the abdominals, lumbar extensors, and glutes to improve transfers and gait. Target Visit 10
--- NOTE | 2023-11-25 08:50 | PTOPEVAL1 ---
Assessment and note entered by Jenny Coronel, PT Evaluation Information Assessment Status Evaluation Diagnosis Low Back Pain Subjective Information Armen Escalante reports he developed a cold about a month ago and he had back pain with it. Then 2 weeks ago he was trying to walk and was unable to get into the building he was going into due to severe low back pain that traveled up his spine to the neck. He had to use a wheelchair the rest of that day. He went to his PCP and a x-ray was performed of the lumbar spine and steroids and pain medication was prescribed. He does not note that medications have helped. Heat pad with vibration and hot showers give him 10-15 minutes of relief. He c/o low back pain worse on the right that travels up his spine and to the base of his neck. He notes increased pain with bending forward and walking. He has had to start using a cane when walking and did not use one before. He denies pain in the lower extremities as well as numbness or tingling. He lives with his 22 year old son who can help with web communications specialist and cooking. He reports his doctor wanted to order a MRI but his insurance is making him try PT first. He is on dialysis 2 times a week and has been for one year. Reported Pain Level Pain Score 9: Self Report Assessment PT Clinical Summary Armen Escalante presents with severe lower back pain with radiation proximally to the thoracic and cervical spine. Pain started approximately one month ago after being sick then worsened 2 weeks ago leading to inability to walk. He has difficulty with walking, prolonged standing, and bending forward. He is now using a cane to walk and previously did not use an assistive device. He objectively demonstrates decreased and painful lumbar AROM, tenderness to palpation of lumbar and thoracic paraspinals, impaired hip and core strength, impaired balance, and impaired gait. He will benefit from skilled PT to address these limitations. Plan of Care Interventions Electrical Stimulation,Gait Training,Hot Pack/Cold Pack,Manual Therapy,Neuro Re-education,Patient/ Caregiver Educati,Therapeutic Activities, Therapeutic Exercise PT Services Indicated Yes Treatment Frequency and 3 times a week for 10 visits Duration These treatments will address the objective and functional deficits as define
--- NOTE | 2024-03-02 11:03 | PCPTNOTE ---
03/02/24: Pt only attended 3 PT sessions and was last seen on 12/02/23. He is discharged. -Jenny Coronel, PT
== END 2023-12-02 20:00 | disposition home or self-care (01) ==
LOC: CHSPT 07:35
PROVIDERS: PCP Internal Medicine; Visit Provider Internal Medicine
DX: M54.50 Low back pain, unspecified (principal)
CPT/HCPCS: 97014; 97110; 97140; 97161; G0283

== ENCOUNTER 2023-12-09 09:12 | Outpatient (CLI) | payer MEDICARE, MEDICAID, SELFPAY ==
--- NOTE | ~2023-12-09 | MR_ITS ---
MRI of the lumbar spine Clinical History: Back pain Technique: Axial T2-weighted images, and sagittal T1-weighted, T2-weighted, and T2 fat-sat images wer e acquired. COMPARISON: 04/19/2019 Findings: No acute fracture seen. Osseous alignment is unchanged from prior exam. No suspicious bone marrow signal abnormality seen. At L1-L2, there is mild to moderate degenerative disc narrowing. There is minimal disc bulge with mil d facet arthropathy. No central canal stenosis or neural foraminal narrowing. At L2-L3, there is diffuse disc bulge with mild to moderate facet arthropathy. No central canal steno sis. There is mild right neural foraminal narrowing. Left neural foramen preserved. At L3-L4, there is diffuse disc bulge and moderate facet arthropathy. No damien central canal stenosis . There is severe right neural foraminal narrowing, and mild to moderate left neural foraminal narrow ing. At L4-L5, there is diffuse disc bulge and advanced facet arthropathy. No central canal stenosis. Ther e is severe left neural foraminal narrowing, and moderate right neural foraminal narrowing. At L5-S1, there is mild diffuse disc bulge. There is advanced facet arthropathy. There is severe left neural foraminal narrowing. Right neural foramen preserved. Paravertebral soft tissues are unremarkable. Impression: Moderate degenerative spondylosis, as above. Reviewed, dictated and finalized at [facility]. DING ILLUMINATING ENGINEER Impression: Moderate degenerative spondylosis, as above.
== END 2023-12-09 09:13 | disposition home or self-care (01) ==
LOC: CHSIMG 09:16
PROVIDERS: PCP Internal Medicine; Visit Provider Internal Medicine
DX: M54.50 Low back pain, unspecified (principal); N18.6 End stage renal disease; M43.06 Spondylolysis, lumbar region
CPT/HCPCS: 72148

== ENCOUNTER 2023-12-24 10:21 | Emergency (ER) | payer MEDICARE, MEDICAID, SELFPAY ==
[2023-12-24] VITALS (20 sets, daily range): BP systolic 0–86; BP diastolic 0–68; PULSE 0–86; RESP 0–20; TEMP 35.1–35.7; O2SAT 58–100
--- NOTE | ~2023-12-24 | XR_ITS ---
XR chest ET placement 12/24/2023 10:59 Indication: Endotracheal tube placement. Respiratory distress. Procedure: AP portable chest Comparison: Comparison to multiple prior studies sequentially, with oldest reviewed study dated 03/2022. Findings: There is airspace disease of the right upper and midlung. Endotracheal tube tip at the rajni na. Recommend retraction approximately 4 cm. Cardiomegaly. Left costophrenic recess not included limi ting evaluation for left effusion. No pneumothorax. No right pleural effusion. Impression: 1: Asymmetric right-sided airspace disease which may represent pneumonia or asymmetric edema. 2: Endotracheal tube tip at the fatuma. Recommend retraction. Reviewed, dictated and finalized at location B. OM WORKER Impression: 1: Asymmetric right-sided airspace disease which may represent pneumonia or asy mmetric edema. 2: Endotracheal tube tip at the fatuma. Recommend retraction.
--- NOTE | 2023-12-24 10:51 | ECG_ITS ---
Measurements Intervals [place] Rate: 82 P: 6 TN: 219 QRS: 91 QRSD: 125 T: 87 QT: 408 QTc: 477 Interpretive Statements SINUS RHYTHM WITH FIRST DEGREE AV BLOCK RIGHT AXIS DEVIATION INTRAVENTRICULAR CONDUCTION DELAY INFERIOR ST ELEVATION MYOCARDIAL INJURY- ACUTE WITH RECIPROCAL ST DEPRESSION IN ANT/HIG LAT LEADS BASELINE ARTIFACT- I, AVR, V2 ABNORMAL ECG COMPARED TO ECG 01/09/2022 00:30:45 FIRST DEGREE AV BLOCK NOW PRESENT STEMI NOW PRESENT Electronically Signed On 12-24-2023 12:03:36 HOGSHEAD HEAD MATCHER by Herve Alicia D.O.
[2023-12-24 10:57] LABS: Base Excess ABG -18.8 mmol/L (0-2); HCO3 ABG 8.8 mmol/L (23-29); Modified Allen's Test Pass; Oxygen Content ABG 16.3 %vol (16.0-22.0); Oxygen Saturation ABG 99.7 % (95-97); Oxyhemoglobin 97.8 % (94-100); PCO2 ABG 26.9 mmHg (35-45); PO2 ABG 247.8 mmHg (75-85); Site Drawn RIGHT FEMORAL; Total Hemoglobin 11.4 g/dL (12.0-18.0); pH ABG 7.13 (7.35-7.45)
[2023-12-24 10:58] LABS: Device OTHER DEVICE; INR 1.8; Partial Thromboplastin Time 27.4 SEC (23.90-30.70); Prothrombin Time 18.9 Seconds (9.50-12.10)
[2023-12-24 10:59] LABS: Band Neutrophils Percent 4 % (0-6); Basophils Percent Manual 0 % (0-1); Eosinophils Percent Manual 0 % (1-6); Hemoglobin 10.4 g/dL (12.4-15.3); Lymphocytes Absolute Manual 1.34 K/mm3 (1.1-4.5); Lymphocytes Percent Manual 9 % (18-44); Mean Corpuscular HGB Conc 29.7 g/dL (32.0-36.0); Mean Corpuscular Hemoglobin 33.5 pg (27.0-31.0); Mean Corpuscular Volume 112.9 fL (78.0-102.0); Mean Platelet Volume 10.9 fl (8.7-11.0); Monocytes Absolute Manual 1.63 K/mm3 (0.1-0.90); Monocytes Percent Manual 11 % (3-9); Myelocytes Percent 2 %; Neutrophils Absolute Manual 11.62 K/mm3 (1.3-6.7); Neutrophils Percent Manual 74 % (46-73); Platelet Count Result 183 K/mm3 (150-420); Red Cell Distribution Width 18.6 % (11.6-14.4); Total Cells Counted 100; White Blood Count 14.9 K/mm3 (4.8-10.8)
--- NOTE | 2023-12-24 10:59 | ED.CPR ---
HPI - CPR General Chief Complaint: Cardiac Arrest/CPR Stated Complaint: ambulance Source: EMS Mode of arrival: EMS Limitations: clinical condition History of Present Illness HPI narrative: Patient is a 78-year-old male with cardiac arrest during EMS transport to the emergency room. Patient had a pulse and was breathing initially and further deteriorated during EMS transport to [facility] so they diverted to our hospital. CPR started during EMS transport and brought to the emergency room. We started ACLS protocol. MD complaint: collapsed during rest ( EMS found patient mobile but not feeling well. He became unresponsive during transport.) Onset (ago): minute(s) (no downtime per EMS started CPR instantly during transport) Timing confirmed by: family member Place: home Bystander CPR performed: Yes (EMS) AED applied by bystander/manager statistics: No Shock advised: Yes (I added one shock with wide complex ventricular rhythm (120J)) Number of shocks delivered: 1 Initial findings in the field: sinus rhythm ROSC in the field: No Associated injuries: No (chronic back lower pains and missed HD x3 this week) Known history of: CAD (x1 stent 10 years ago) Treatments prior to arrival: chest compressions Related Data Home Medications Medication Instructions Recorded Confirmed allopurinol 300 mg tablet 300 mg PO DAILY 03/25/20 12/24/23 carvedilol 25 mg tablet 12.5 mg PO BID 03/25/20 12/24/23 clopidogrel 75 mg tablet 75 mg PO DAILY 03/25/20 12/24/23 montelukast 10 mg tablet 10 mg PO DAILY 03/25/20 12/24/23 tamsulosin 0.4 mg capsule 0.4 mg PO HS 03/25/20 12/24/23 vitamin B complex (B 1 tablet PO DAILY 03/25/20 12/24/23 Complex-Vitamin B12 tablet) mirtazapine 15 mg tablet 45 mg PO HS 05/11/20 12/24/23 atorvastatin 40 mg tablet 40 mg PO DAILY 11/07/21 12/24/23 Calcium-Vitamin D 10 mcg PO DAILY 01/03/22 12/24/23 melatonin 10 mg PO HS 01/03/22 12/24/23 furosemide 40 mg tablet 40 mg PO BID 09/17/23 12/24/23 trazodone 50 mg tablet 50 mg PO HS 09/17/23 12/24/23 Allergies Allergy/AdvReac Type Severity Reaction Status Date / Time No Known Allergies Allergy Verified 01/08/22 22:41 Review of Systems Review of Systems: All systems reviewed & are unremarkable except as noted in HPI and below Constitutional: Constitutional: Reports no additional constitutional complaints Eyes: Eyes: Reports no additional eye complaints ENT: Reports system reviewed and no additional complaints, except as documented Cardiovascular: Cardiovascular: Reports no additional cardiovascular complaints Respiratory: Respiratory: Reports no additional respiratory complaints Gastrointestinal: Gastrointestinal: Reports no additional gastrointestinal complaints Genitourinary: Genitourinary: Reports no additional male genitourinary complaints Musculoskeletal: Musculoskeletal: Reports no additional musculoskeletal complaints Integumentary/Breasts: Skin/Breast: Reports system reviewed and no additional complaints, except as docu Neurologic: Reports system reviewed and no additional complaints, except as documented Psychiatric: Psychiatric: Reports no additional psychiatric complaints Endocrine: Endocrine: Reports no additional endocrine complaints Hematologic/Lymphatic: Hematologic/Lymphatic: Reports no additional hematologic/lymphatic complaints Allergic/Immunologic: Allergic/Immunologic: Reports no additional allergic/immunologic complaints [facility] Past Medical History Medical History Anemia of chronic disease Chronic dermatitis Chronic kidney disease, stage 4 (severe) Baseline creatinine appears to be around 2.30. He is followed by hat sprayer in [place]. Congestive heart failure Echocardiogram in June 2019 showed normal left ventricular size, mild concentric left ventricular hypertrophy, impaired diastolic relaxation grade 1, ejection fraction visually estimated at 40 to 45%, akinetic apical
[2023-12-24 11:00] LABS: Crenated RBC 3+ (NORMAL); Nucleated Red Blood Cells 6 %; Platelet Estimate Adequate (Adequate)
[2023-12-24 11:03] LABS: Lactic Acid Reflex 9.5 mmol/L (0.4-2.0)
--- NOTE | 2023-12-24 11:09 | PC.NURSE ---
Lab reports critical creatinine of 9.52, troponin of 8745, and glucose is 142. ERP notified.
[2023-12-24] MEDS: FUROSEMIDE INJ 100 MG/10 ML VIAL 80 MG IV PUSH (11:11)
[2023-12-24] MEDS: SODIUM CHLORIDE 0.9% IV 1,000 ML 999 ML IV CONT (11:16)
[2023-12-24 11:18] LABS: Phosphorus > 8.0 mg/dL (2.6-4.7)
[2023-12-24 11:18] LABS: Alanine Aminotransferase 879 U/L (16-63); Albumin Level 2.6 g/dL (3.4-5.0); Alkaline Phosphatase 61 U/L (46-116); Anion Gap 23 mmol/L (8-16); Bilirubin,Total 1.4 mg/dL (0.00-1.00); Blood Urea Nitrogen 127 mg/dL (7-18); Calcium 11.1 mg/dL (8.5-10.1); Carbon Dioxide 15 mmol/L (21-32); Chloride 103 mmol/L (98-108); Estimated Glomerular Filt Rate 5; Glucose 142 mg/dL (70-99); Magnesium 2.7 mg/dL (1.8-2.4); NT Pro B Type Natriuretic Pept > 35000 pg/mL (0-450); Osmolality Calculated 334 mOsm/kg (285-295); Sodium 141 mmol/L (136-145); Total Protein 5.4 g/dL (6.4-8.2)
[2023-12-24 11:19] LABS: Aspartate Amino Transferase > 796 U/L (15-37); Potassium 6.7 mmol/L (3.5-5.1)
[2023-12-24 11:42] LABS: SARS-CoV-2 RNA PCR Negative (Negative)
[2023-12-24 11:45] LABS: Influenza A QL RT-PCR Negative (Negative); Influenza B QL RT-PCR Negative (Negative); RSV RNA, RT-PCR Negative (Negative)
[2023-12-24] MEDS: INSULIN HUMAN REGULAR (*BKC) 1,000 UNITS/10 ML VIAL 10 UNITS IV PUSH (12:06)
[2023-12-24] MEDS: KETAMINE HCL (*CRX) 500 MG/10 ML VIAL 15 MG IV PUSH ×2 (12:11→12:46)
[2023-12-24] MEDS: DEXTROSE 50% 25 GM/50 ML SYRINGE IV PUSH (12:12)
[2023-12-24] MEDS: EPINEPHrine INJ 1 MG in DEXTROSE 5% IN WATER 250 ML 75.3 MG IV CONT (12:23)
[2023-12-24 12:32] LABS: Appearance Urine Clear (Clear); Bilirubin Urine 1+ (Negative); Blood Urine Trace-Intact (Negative); Color Urine Yellow (Yellow); Glucose Urine UA Negative (Negative); Ketones Urine Trace (Negative); Leukocyte Esterase Ur Negative LEU/UL (Negative); Nitrate Urine Negative (Negative); Protein Urine Negative (Negative); Specific Grav Ur >= 1.030 (1.010-1.020); Urobilinogen Urine 0.2 mg/dL (0.2-1.0); pH Urine 5.5 (5.0-8.0)
[2023-12-24] MEDS: PIPERACILLIN/TAZ 2.25G/NS 50ML 2.25 GM/50 ML BAG IVPB (12:36)
[2023-12-24 12:38] LABS: Add Urine Microscopic? YES; Bacteria Urine Rare /hpf; Other Sediment Urine Spermatazoa /hpf; RBC Urine None seen /hpf (0-2); WBC Urine None seen /hpf (0-3)
[2023-12-24 12:40] LABS: Anion Gap 22 mmol/L (8-16); Blood Urea Nitrogen 127 mg/dL (7-18); Calcium 9.4 mg/dL (8.5-10.1); Carbon Dioxide 14 mmol/L (21-32); Chloride 104 mmol/L (98-108); Estimated CRCL calculation 6 ml/min; Estimated Glomerular Filt Rate 6; Glucose 279 mg/dL (70-99); Osmolality Calculated 340 mOsm/kg (285-295); Sodium 140 mmol/L (136-145)
--- NOTE | 2023-12-24 12:44 | PC.NURSE ---
Lab reports critical creatinine at 9.29, erp made aware.
--- NOTE | 2023-12-24 12:51 | PC.NURSE ---
pt report to [facility] staff , bashir, pt loaded to ems cot. stable with mechanical vent
[2023-12-24 13:07] LABS: Glucose Point of Care 78 mg/dl (65-105)
--- NOTE | 2023-12-24 13:38 | ED.GENADULT ---
HPI - General Adult General Chief complaint: Cardiac Arrest/CPR <Lance Ordonez MD - Last Filed: 12/24/23 14:16> Stated complaint: ambulance <Lance Ordonez MD - Last Filed: 12/24/23 14:16> Source: EMS <Otoniel Coffman MD - Last Filed: > Mode of arrival: EMS <Otoniel Coffman MD - Last Filed: > Limitations: clinical condition <Otoniel Coffman MD - Last Filed: > History of Present Illness HPI narrative: ERROR NOTE; SEE OTHER NOTE FOR THIS VISIT <Lance Ordonez MD - Last Filed: 12/24/23 14:16> Related Data Home medications: Home Medications Medication Instructions Recorded Confirmed allopurinol 300 mg tablet 300 mg PO DAILY 03/25/20 12/24/23 carvedilol 25 mg tablet 12.5 mg PO BID 03/25/20 12/24/23 clopidogrel 75 mg tablet 75 mg PO DAILY 03/25/20 12/24/23 montelukast 10 mg tablet 10 mg PO DAILY 03/25/20 12/24/23 tamsulosin 0.4 mg capsule 0.4 mg PO HS 03/25/20 12/24/23 vitamin B complex (B 1 tablet PO DAILY 03/25/20 12/24/23 Complex-Vitamin B12 tablet) mirtazapine 15 mg tablet 45 mg PO HS 05/11/20 12/24/23 atorvastatin 40 mg tablet 40 mg PO DAILY 11/07/21 12/24/23 Calcium-Vitamin D 10 mcg PO DAILY 01/03/22 12/24/23 melatonin 10 mg PO HS 01/03/22 12/24/23 furosemide 40 mg tablet 40 mg PO BID 09/17/23 12/24/23 trazodone 50 mg tablet 50 mg PO HS 09/17/23 12/24/23 <Lance Ordonez MD - Last Filed: 12/24/23 14:16> Allergies/adverse reactions: Allergies Allergy/AdvReac Type Severity Reaction Status Date / Time No Known Allergies Allergy Verified 01/08/22 22:41 <Lance Ordonez MD - Last Filed: 12/24/23 14:16> PMFSH Past Medical History Medical History: Medical History Anemia of chronic disease Chronic dermatitis Chronic kidney disease, stage 4 (severe) Baseline creatinine appears to be around 2.30. He is followed by cans vacuum tester in [place]. Congestive heart failure Echocardiogram in June 2019 showed normal left ventricular size, mild concentric left ventricular hypertrophy, impaired diastolic relaxation grade 1, ejection fraction visually estimated at 40 to 45%, akinetic apical segment, and hypokinesis of the apical anterior, apical lateral, and apical septum segments. Left atrium was moderately enlarged with mild mitral valve regurgitation. Mild pulmonary hypertension also noted with an estimated peak RVSP of 36 mmHg. Coronary artery disease With history of stent x1. Depression with anxiety Gout Hyperlipidemia Hypertension Obstructive sleep apnea Polycystic kidney disease Rheumatoid arthritis <Lance Ordonez MD - Last Filed: 12/24/23 14:16> Surgical History Surgical History: Surgical History History of coronary artery stent placement Bare metal stent to the LAD in 1996. History of inguinal hernia repair <Lance Ordonez MD - Last Filed: 12/24/23 14:16> Family History Family History: Family History Mother Hypertension Family history of lung cancer Family history of coronary artery disease Sibling Family history of polycystic kidney disease Father Family history of elevated blood lipids Family history of coronary artery disease Patient's father is <Lance Ordonez MD - Last Filed: 12/24/23 14:16> Social History Social History: Social History Social History: Surrogate decision maker: José Escalante, son. Code status: Full code. Smoking status: Never smoker Second hand tobacco smoke exposure: No Alcohol intake: current Drinks per week: 6 Alcohol use details: Beer Substance use: never Substance use type: does not use Living arrangements: with family Additional living arrangements comments: Patient lives with one of his 4 sons in [place].
[2023-12-24 13:49] LABS: Reflex Lactic Acid Yes or No Add Lactic
--- NOTE | 2023-12-24 14:08 | PC.NURSE ---
1115 family in room with patient. updated per dr nguyen.
--- NOTE | 2023-12-30 13:10 | PC.NURSE ---
final blood culture reports x2 reviewed. no growth after 5 days. no change in plan of care.
== END 2023-12-24 13:00 | disposition short-term general hospital (02) ==
PROVIDERS: Emergency Provider Emergency Medicine; PCP Internal Medicine
DX: I46.9 Cardiac arrest, cause unspecified (principal); I21.3 ST elevation (STEMI) myocardial infarction of unspecified site; A41.9 Sepsis, unspecified organism; I13.2 Hypertensive heart and chronic kidney disease with heart failure and with stage 5 chronic kidney disease, or end stage renal disease; N18.6 End stage renal disease; I50.9 Heart failure, unspecified; E87.5 Hyperkalemia; E16.2 Hypoglycemia, unspecified; J18.9 Pneumonia, unspecified organism; R74.01 Elevation of levels of liver transaminase levels; E78.5 Hyperlipidemia, unspecified; I25.10 Atherosclerotic heart disease of native coronary artery without angina pectoris; M06.9 Rheumatoid arthritis, unspecified; Z79.899 Other long term (current) drug therapy; Z20.822 Contact with and (suspected) exposure to COVID-19
CPT/HCPCS: 31500; 36415; 36600; 80048; 80053; 81001; 82805; 82948; 83605; 83735; 83880; 84100; 84484; 85025; 85610; 85730; 87040; 87637; 92950; 93005; 96361; 96365; 96368; 96375; 96376; 99285; J0171; J0461; J1815; J1940; J2543; J7030; J7060

== ENCOUNTER 2023-12-24 13:27 | Inpatient (IN) | payer MEDICARE, MEDICAID, SELFPAY ==
[2023-12-24] VITALS (20 sets, daily range): BP systolic 68–129; BP diastolic 46–86; PULSE 66–86; RESP 16–20; TEMP 34.4–36; O2SAT 98–100
--- NOTE | ~2023-12-24 | XR_ITS ---
Portable chest x-ray Comparison: 12/26/2023 Clinical History: Respiratory failure Findings: Endotracheal tube and NG tube are in satisfactory positions. Extensive right lung haziness present. Probable minimal left pleural effusion. Cardiomediastinal silhouette is stable. Bones and soft tissues are unremarkable. Impression: Asymmetric right lung haziness. Correlate for asymmetric pulmonary edema versus pneumonia. Minimal left pleural effusion. Support tubes, as above. Reviewed, dictated and finalized at [facility]. ON PICTURE PROJECTIONIST APPRENTICE Impression: Asymmetric right lung haziness. Correlate for asymmetric pulmonary edema versus pneumonia. Minimal left pleural effusion. Support tubes, as above.
--- NOTE | ~2023-12-24 | CT_ITS ---
EXAMINATION: CT chest abdomen pelvis wo con DATE: 12/24/2023 17:43 INDICATION: Post cardiac arrest. TECHNIQUE: Computed tomography (CT) of the chest, abdomen, and pelvis was performed without intraveno us contrast. Automated exposure control and iterative reconstruction technique were employed. The dos e-length product was 1741.41 mGy-cm. COMPARISON: CT abdomen and pelvis 01/03/2022 FINDINGS: CHEST CT: There are small pleural effusions. A calcified left lung nodule is consistent with old granulomatous disease. There is dependent atelectasis bilaterally. The endotracheal tube tip is in the right mainst em bronchus. Cardiomegaly is noted. There are coronary artery calcifications. No pericardial effusion . ABDOMEN/PELVIS CT: There are cysts in the liver measuring up to 6 mm. Calcifications in the spleen are consistent with o ld granulomatous disease. The gallbladder is normal in size. Gallbladder wall thickening is noted, li do interstitial edema. There is sludge in the gallbladder. The pancreas and adrenal glands are norm al. There are innumerable cysts and hemorrhagic cysts in the kidneys. Right kidney measures 15.3 x 9. 2 x 7.9 cm. Left kidney measures 13.4 x 0.0 x 8.0 cm . There is a small volume of ascites. There is a right inguinal hernia containing fat. There is a left inguinal hernia containing ascites. The prosta te is mildly enlarged. There is diverticulosis of the colon without evidence of diverticulitis. The a ppendix is normal. There is calcified atherosclerosis of the aorta and many of the other arteries. Th ere is edema of the intra-abdominal fat and body wall fat. There are no pathologically enlarged lymph nodes. There is a right groin catheter with tip in right external iliac vein. There is a right groin catheter with tip in right external iliac artery. There is mild thoracic spondylosis and severe lumb ar spondylosis. IMPRESSION: 1. Endotracheal tube tip in the right mainstem bronchus. The tube has reportedly since been withdrawn 2 cm. 2. Small pleural effusions. 3. Polycystic kidney disease. 4. Small volume of ascites. Reviewed, dictated and finalized at location E. MER MATERIALS CONSULTANT IMPRESSION: 1. Endotracheal tube tip in the right mainstem bronchus. The tube has reportedl y since been withdrawn 2 cm. 2. Small pleural effusions. 3. Polycystic kidney disease. 4. Small volume of ascites.
--- NOTE | ~2023-12-24 | XR_ITS ---
EXAMINATION: XR abdomen gastric tube insert DATE: 12/24/2023 15:50 INDICATION: Orogastric tube placement. TECHNIQUE: A supine view of the abdomen was obtained. COMPARISON: CT abdomen and pelvis 01/03/2022 FINDINGS: The lower abdomen is excluded. There is gaseous distention of the stomach. The orogastric t ube tip is in the stomach. IMPRESSION: 1. Orogastric tube tip in the stomach. Reviewed, dictated and finalized at location E. ITIZER
--- NOTE | ~2023-12-24 | XR_ITS ---
XR chest 1V portable 12/26/2023 06:01 Indication: Respiratory failure Procedure: AP portable chest Comparison: Comparison to multiple prior studies sequentially, with oldest reviewed study dated 12/25. Findings: Cardiomegaly. Endotracheal tube tip 5.1 cm above the fatuma. NG tube in the stomach. Left I J central venous catheter tip in the SVC. Bilateral airspace disease is unchanged which may represent edema or pneumonia. There is residual contrast in the stomach. No pneumothorax. Small left pleural e ffusion. Impression: 1: Stable bilateral airspace disease which may represent edema or pneumonia. Reviewed, dictated and finalized at location A. TECHNICAL ARCHITECT Impression: 1: Stable bilateral airspace disease which may represent edema or pneumonia.
--- NOTE | ~2023-12-24 | CT_ITS ---
EXAMINATION: CT brain wo con DATE: 12/24/2023 17:43 INDICATION: Post cardiac arrest. TECHNIQUE: Computed tomography (CT) of the head was performed without intravenous contrast. The mA wa s adjusted according to patient size. Iterative reconstruction technique was employed. The dose-lengt h product was 605.33 mGy-cm. COMPARISON: Head CT 07/09/2022 FINDINGS: There is no intracranial hemorrhage, acute infarction, or abnormal intracranial mass lesion . There is a prominent perivascular space in the right basal ganglia. The ventricles are normal in si ze. There is mucosal thickening in the paranasal sinuses. The orbits are normal. The mastoid air cell s are normal. IMPRESSION: 1. Normal brain. Reviewed, dictated and finalized at location E. EAR LICENSING ENGINEER IMPRESSION: 1. Normal brain.
--- NOTE | ~2023-12-24 | US_ITS ---
EXAMINATION: US abdomen limited DATE: 12/26/2023 14:31 INDICATION: elevated LFTs, hyperbilirubinemia TECHNIQUE: Multiple grayscale and Doppler ultrasound images of limited portions of the abdomen were o btained. COMPARISON: CT CAP 12/24/2023. FINDINGS: The visualized portions of the pancreas are normal. The liver is normal with normal echogen icity and echotexture. No surface nodularity. Normal hepatopetal flow in the main portal vein. Sludge containing gallbladder with wall thickening. The common bile duct measures 4 mm. Sonographic Emanuel sign cannot be assessed due to patient's altered mental status. The right kidney measures 13.6 x 8.0 x 7.8 cm. Simple right renal cysts. IMPRESSION: Sludge containing gallbladder with wall thickening. Exam limited by inability to perform the sonograp hic Emanuel sign. Reviewed, dictated and finalized at location K. LINER IMPRESSION: Sludge containing gallbladder with wall thickening. Exam limited by inability t o perform the sonographic Emanuel sign.
--- NOTE | ~2023-12-24 | XR_ITS ---
XR chest 1V portable 12/25/2023 09:59 Indication: Desaturations. Dyspnea. Procedure: AP portable chest Comparison: Comparison to multiple prior studies sequentially, with oldest reviewed study dated 01/21. Findings: Endotracheal tube tip approximately 8 cm above the fatuma. Recommend advancement. NG tube i n the stomach. Cardiomegaly. Left basilar atelectasis. Small left effusion. No pneumothorax. No edema . Impression: 1: Small left pleural effusion with compressive atelectasis. 2: Cardiomegaly. Reviewed, dictated and finalized at location A. NCIAL SERVICES MANAGER Impression: 1: Small left pleural effusion with compressive atelectasis. 2: Cardiomegaly.
--- NOTE | ~2023-12-24 | XR_ITS ---
EXAMINATION: XR chest ET placement DATE: 12/24/2023 15:50 INDICATION: Endotracheal tube placement TECHNIQUE: frontal view of the chest was obtained. COMPARISON: Chest radiograph dated 12/24/2023 11:00 AM FINDINGS: The endotracheal tube has been withdrawn into the distal trachea with distal tip 1.4 cm above the car sin. There appears to be abrupt opacification of the right mainstem bronchus near the level of the ca mirela. There are mild hazy opacities throughout the right lung and mild streaky opacities at the bilat eral lung bases. No pleural effusion or pneumothorax. Heart size within normal limits for AP techniqu e. IMPRESSION: 1. Endotracheal tube tip 1.4 cm above the fatuma. 2. Mild opacities throughout the right lung and at the left lung base which could represent atelectas is, pneumonia or mild pulmonary edema. 3. Opacification of the right mainstem bronchus which appears new since the prior study suggesting po ssible mucus plugging. Reviewed, dictated and finalized at location A. TOP SUPPORT TECHNICIAN IMPRESSION: 1. Endotracheal tube tip 1.4 cm above the fatuma. 2. Mild opacities throughout the right lung and at the left lung base which cou ld represent atelectasis, pneumonia or mild pulmonary edema. 3. Opacification of the right mainstem bronchus which appears new since the ángel or study suggesting possible mucus plugging.
--- NOTE | ~2023-12-24 | XR_ITS ---
XR chest 1V portable 12/25/2023 06:00 Indication: Respiratory failure Procedure: AP portable chest Comparison: Comparison to multiple prior studies sequentially, with oldest reviewed study dated 01/08. Findings: Cardiomegaly. Stable mild interstitial edema. NG tube in the stomach. Endotracheal tube tip approximately 6 cm above the fatuma. Possible small left effusion. No pneumothorax. Impression: 1: Stable mild interstitial edema. Reviewed, dictated and finalized at location A. IC HEALTH WORKER Impression: 1: Stable mild interstitial edema.
--- NOTE | ~2023-12-24 | XR_ITS ---
Portable chest x-ray Comparison: 12/27/2023 Clinical History: Respiratory failure Findings: Endotracheal tube, NG tube, and left-sided central venous line are in place. There is hazy airspace disease the right midlung and right lung base. Left lung clear. Cardiomediastinal silhouet te is stable. Bones and soft tissues are unremarkable. Impression: Hazy right-sided airspace disease. Correlate for asymmetric pulmonary edema versus pneumonia. Support tubes, as above. Reviewed, dictated and finalized at location . TABOUT HEAD Impression: Hazy right-sided airspace disease. Correlate for asymmetric pulmonary edema mickey js pneumonia. Support tubes, as above.
--- NOTE | ~2023-12-24 | XR_ITS ---
XR chest port-a-cath/central 12/25/2023 13:04 Indication: Line placement Procedure: AP portable chest Comparison: Comparison to multiple prior studies sequentially, with oldest reviewed study dated 05/18 24. Findings: There is a possible left internal jugular central line, although there is a overlying lead obscuring this area. Endotracheal tube tip 6 cm above the fatuma. NG tube in the stomach. Bibasilar a telectasis. Possible small effusion. No pneumothorax. Impression: 1: Possible left IJ central line, not well visualized. Recommend repositioning of overlying lead with repeat x-ray centered slightly higher. 2: Bibasilar atelectasis. Reviewed, dictated and finalized at location B. ESPONDENCE REPRESENTATIVE Impression: 1: Possible left IJ central line, not well visualized. Recommend repositioning of overlying lead with repeat x-ray centered slightly higher. 2: Bibasilar atelectasis.
--- NOTE | ~2023-12-24 | XR_ITS ---
EXAMINATION: XR chest 1V portable Exam Date/Time: 12/25/2023 13:45 NETWORK OPERATIONS TECHNICIAN HISTORY: RE ADJUSTED LINE PLACEMENT Comparison: Same date at 12:54 PM. RESULT: Lines, tubes, and devices: Endotracheal tube terminates 4.7 cm above the fatuma. Subdiaphragmatic NG tube. Left IJ dual-lumen catheter terminating at the junction of the brachiocephalic vein and SVC. Lungs and pleura: Streaky bibasilar opacities, likely scar/atelectasis. Mild left costophrenic angle blunting, likely representing a small left pleural effusion. Cardiomediastinal silhouette: Stable. Other: No acute osseous or upper abdominal finding. IMPRESSION: Left IJ central venous line terminates at the junction of the brachiocephalic vein and SVC. Reviewed, dictated and finalized at location K. ORK OPERATIONS TECHNICIAN IMPRESSION: Left IJ central venous line terminates at the junction of the brachiocephalic v ein and SVC.
--- NOTE | 2023-12-24 13:39 | ED.GENADULT ---
HPI - General Adult General Chief complaint: Unspecified Stated complaint: cardiac Time Seen by Provider: 12/24/23 13:36 History of Present Illness HPI narrative: Patient is a 78-year-old male who [place] ER from [place] [id number] as a STEMI activation. Patient missed dialysis x3 this week. He was getting an ambulance to go to the ER to hopefully get dialysis today when he went into PA arrest. He then received epi x3 as well as calcium and sodium bicarbonate. He was shocked for wide complex arrhythmia x1. Ross was achieved. Patient was intubated at outside hospital. Apparently there was an attempt to start a left tibial intraosseous line however they missed the bone in access the calf muscle. Patient has been started on broad-spectrum antibiotics for possible pneumonia as well. Patient was hyperkalemic and this was treated with some insulin. Patient with prolonged hospital seen time prior to transfer. Upon arrival here cardiology at bedside. Bedside EKG shows inferior STEMI which is consistent with previous EKG. Patient will go to assist color laboratory technician. He is hypotensive and poorly responsive to epinephrine drip. He will be switched to Levophed. Related Data Home Medications Medication Instructions Recorded Confirmed allopurinol 300 mg tablet 300 mg PO DAILY 03/25/20 12/24/23 carvedilol 25 mg tablet 12.5 mg PO BID 03/25/20 12/24/23 clopidogrel 75 mg tablet 75 mg PO DAILY 03/25/20 12/24/23 montelukast 10 mg tablet 10 mg PO DAILY 03/25/20 12/24/23 tamsulosin 0.4 mg capsule 0.4 mg PO HS 03/25/20 12/24/23 vitamin B complex (B 1 tablet PO DAILY 03/25/20 12/24/23 Complex-Vitamin B12 tablet) mirtazapine 15 mg tablet 45 mg PO HS 05/11/20 12/24/23 atorvastatin 40 mg tablet 40 mg PO DAILY 11/07/21 12/24/23 Calcium-Vitamin D 10 mcg PO DAILY 01/03/22 12/24/23 melatonin 10 mg PO HS 01/03/22 12/24/23 furosemide 40 mg tablet 40 mg PO BID 09/17/23 12/24/23 trazodone 50 mg tablet 50 mg PO HS 09/17/23 12/24/23 Allergies Allergy/AdvReac Type Severity Reaction Status Date / Time No Known Allergies Allergy Verified 02/10/22 22:41 Review of Systems Review of Systems: ROS unobtainable: Yes unobtainable due to medical condition [facility] Past Medical History Medical History Anemia of chronic disease Chronic dermatitis Chronic kidney disease, stage 4 (severe) Baseline creatinine appears to be around 2.30. He is followed by hearing examiner in [place]. Congestive heart failure Echocardiogram in June 2019 showed normal left ventricular size, mild concentric left ventricular hypertrophy, impaired diastolic relaxation grade 1, ejection fraction visually estimated at 40 to 45%, akinetic apical segment, and hypokinesis of the apical anterior, apical lateral, and apical septum segments. Left atrium was moderately enlarged with mild mitral valve regurgitation. Mild pulmonary hypertension also noted with an estimated peak RVSP of 36 mmHg. Coronary artery disease With history of stent x1. Depression with anxiety Gout Hyperlipidemia Hypertension Obstructive sleep apnea Polycystic kidney disease Rheumatoid arthritis Surgical History Surgical History History of coronary artery stent placement Bare metal stent to the LAD in 1996. History of inguinal hernia repair Family History Family History Mother Hypertension Family history of lung cancer Family history of coronary artery disease Sibling Family history of polycystic kidney disease Father Family history of elevated blood lipids Family history of coronary artery disease Patient's father is Social History Social History Social History: Surrogate decision maker: José Escalante, son. Code status: Full code. Smoking status: Never smoker Second hand tobacco
--- NOTE | 2023-12-24 13:42 | ECG_ITS ---
Measurements Intervals [place] Rate: 76 P: 202 WA: 212 QRS: 21 QRSD: 105 T: -58 QT: 400 QTc: 452 Interpretive Statements SINUS RHYTHM WITH FIRST DEGREE AV BLOCK INFERIOR ST ELEVATION MYOCARDIAL INFARCT- ACUTE, WITH RECIPROCAL ST DEPRESSION IN ANT/HIGH LAT LEADS BASELINE ARTIFACT- I, II, AVR, AVL, V1-V2 ABNORMAL ECG COMPARED TO ECG 12/24/2023 11:23:28 NO SIGNIFICANT CHANGES Electronically Signed On 12-24-2023 15:34:39 FILTER TANK TENDER by Herve Alicia D.O.
--- NOTE | 2023-12-24 13:47 | PM.IMHP ---
H&P: HPI History of Present Illness Date/Time: 12/24/23 13:47 Chief Complaint: ST elevation [place] Narrative: this is a 78-year-old man unknown to me who apparently follows with my partner, Dr. Escamilla with a history of coronary artery disease. The patient also has a history of end-stage renal disease and has recently been placed on hemodialysis within the last 1-2 years. The patient was apparently not feeling well he had not gone to his hemodialysis session for the last 3 appointments. He called an ambulance and on route to the emergency room at [place] he apparently suffered a cardiac arrest marked with pulseless electrical activity. A resuscitation effort in-situ in the emergency room in [place]. He was intubated and received CPR and 3 rounds of ACLS with epinephrine eventually restoring a pulse. His 12 lead electrocardiogram following resuscitation appears to show inferior current of injury and he was transferred by ambulance here to [facility]. The patient according to the chart has a history of coronary disease history of PCI to the anterior descending artery back in 1996. He in recent years has been followed by Dr. Escamilla. He does have a history of some shortness of breath and chest pain with a abnormal stress test a few years ago suggesting multivessel coronary disease. Catheterization was discussed and recommended and was declined by the patient. He has been been treated medically and has been doing relatively well with medical therapy. He has been chronically on aspirin and clopidogrel. In this setting he is being transferred here to [facility]. Following resuscitation the patient's laboratory data showed him to have a potassium of 6.7 significant lactic acidosis and elevated transaminases. At the time of arrival here he course he is intubated and unresponsive. Review of Systems Review of Systems: ROS unobtainable: Yes unobtainable due to endotracheal tube and unobtainable due to mental status PMFSH Past Medical History Medical History Anemia of chronic disease Chronic dermatitis Chronic kidney disease, stage 4 (severe) Baseline creatinine appears to be around 2.30. He is followed by seed cutter in [place]. Congestive heart failure Echocardiogram in June 2019 showed normal left ventricular size, mild concentric left ventricular hypertrophy, impaired diastolic relaxation grade 1, ejection fraction visually estimated at 40 to 45%, akinetic apical segment, and hypokinesis of the apical anterior, apical lateral, and apical septum segments. Left atrium was moderately enlarged with mild mitral valve regurgitation. Mild pulmonary hypertension also noted with an estimated peak RVSP of 36 mmHg. Coronary artery disease With history of stent x1. Depression with anxiety Gout Hyperlipidemia Hypertension Obstructive sleep apnea Polycystic kidney disease Rheumatoid arthritis Surgical History Surgical History History of coronary artery stent placement Bare metal stent to the LAD in 1996. History of inguinal hernia repair Family History Family History Mother Hypertension Family history of lung cancer Family history of coronary artery disease Sibling Family history of polycystic kidney disease Father Family history of elevated blood lipids Family history of coronary artery disease Patient's father is Social History Social History Social History: Surrogate decision maker: José Escalante, son. Code status: Full code. Smoking status: Never smoker Second hand tobacco smoke exposure: No Alcohol intake: current Drinks per week: 6 Alcohol use details: Beer Substance use: never Substance use type: does not use Living arrangements: with family Additional
[2023-12-24] MEDS: NOREPINEPHRINE 8 MG/D5W 250 ML 8 MG/250 ML BAG 9.38 MG IV CONT (13:54)
--- NOTE | 2023-12-24 14:00 | PC.NURSE ---
Versed not started, Bag spiked and went up with nurses and pt to recyclable materials collector
--- NOTE | 2023-12-24 15:21 | WPDCARDPROC ---
Cardiac Cath Procedure Note Date of procedure:: 12/24/23 Performing physician:: Morro De La Fuente MD Indication:: ST elevation [place] Brief clinical history:: this is a 78-year-old man with a long history of coronary artery disease who presents to the hospital with apparent inferior ST-elevation GA. the patient apparently received stenting of his proximal LAD in the . He has had evidence of significant multivessel coronary disease several years ago and declined angiography for fear of risk of the procedure related to renal failure. The patient's renal failure has progressed to end-stage renal disease. He has failed the last 3 dialysis sessions. This morning on the way to the emergency room at the referring hospital he had a PEA arrest. Following a resuscitation effort and nondenominational of spontaneous circulation his ECG shows evidence of acute inferior current of injury. Patient is markedly hyperkalemic acidemic and hypotensive. In this setting he is being brought to the cardiac catheterization lab for emergency angiography. Patient is intubated sedated and incapable of providing any history Procedure Procedure performed:: coronary angiography PTCA of right coronary artery left ventriculogram Sedation/Medication given:: no sedation case start time 2:18 p.m. case end time 3:08 p.m. Access site:: right femoral artery right femoral vein Estimated blood loss:: 25 cc Procedure note:: patient was brought to the cardiac catheterization lab in the emergency setting described above the femoral triangles were prepped and draped in the usual fashion. Following this the right femoral vein and right femoral artery were punctured using the modified Seldinger technique and 5 in 6 Greenlandic sheaths were placed respectively. I then used a 5 Greenlandic FL4 catheter to engage and inject the left coronary artery which was injected in multiple projections. I then used a 5 Green[place]ic JR4 catheter to engage and inject the right coronary artery in 3 projections. Cineangiograms were then reviewed. PCI of the right coronary artery was then attempted and carried out as detailed below. Prior to PCI the patient was anticoagulated with renal dosed bolus and infusion of Angiomax. He received aspirin and 600 mg of clopidogrel through his orogastric tube. Following PTCA of right coronary artery as detailed below the sheath was sutured into position and the patient was taken to the ICU for post GA PCI recovery. Patient was in critical condition as described above and below. The procedure was well tolerated and uncomplicated there were no signs of groin hematoma when he left the cardiac catheterization lab. Findings:: Hemodynamics: Central aortic pressure is 102 over 64 left ventricle 102/12 end-diastolic pressure 32 there is no gradient across the aortic valve. Left ventricle: The LV is markedly dilated. There is severe global systolic hypokinesia identified with an ejection fraction I would visually estimate to be 25%. The left main coronary artery is medium in caliber and appears to be patent the left anterior descending is a medium caliber artery there is stent material from the ostial to the proximal segment of the LAD. The stented area is patent but has an InStent stenosis of about 80%. The LAD then gives rise to a medium-sized proximal diagonal branch which has mild diffuse disease. After the origin of this proximal diagonal the remainder of the LAD is totally occluded. There is some faint [id number]-[id number] collateral filling of the anterior descending. The circumflex is a small caliber calcified vessel which gives rise to a very small proximal marginal branch after this remainder of the circumflex is totally closed. There is a [id number] collaterals filling the can be seen to a medium-sized mid OM branch. The right coronary artery is moderate caliber and dominant to the posterior circulation. The right coronary has severe diffuse dis
--- NOTE | 2023-12-24 15:26 | PC.NURSE ---
This patient, Armen Escalante, was admitted to Intensive Care Unit-3. Patient/family oriented to hospital policies and general routines including ID bracelet, bed and alarms, visiting hours, pain management, procedures, bathroom and other care routines, personal items, smoking policy, room service/diet, and visiting hours. Information on how to activate the Rapid Response Team has been discussed. Patient/Family are encouraged to report perceived risks to care and to ask questions if they do not understand what they are told or what they should do.
[2023-12-24 15:58] LABS: Alveolar/Arterial O2 Gradient 154.9 mmHg; Base Excess ABG -13.9 mEq/l (+/-2.0); Fractional Inspired Oxygen 50 %; HCO3 ABG 11.8 mEq/l (22.0-26.0); Oxygen Content ABG 15.5 %vol (16.0-22.0); Oxygen Saturation ABG 98.9 % (95.0-100.0); Oxyhemoglobin 97.6 % THb (90.0-100.0); PCO2 ABG 27.6 mmHg (35.0-45.0); PO2 ABG 170.6 mmHg (80.0-100.0); PO2 FiO2 Ratio Arterial Blood 3.41 %
[2023-12-24 15:59] LABS: Hemoglobin 10.5 g/dL (14.0-18.0); Mean Corpuscular HGB Conc 30.9 g/dl (32-36); Mean Corpuscular Hemoglobin 34.2 pg (26-34); Mean Corpuscular Volume 110.7 fl (80-100); Mean Platelet Volume 10.5 fl (7.4-10.4); Platelet Count Result 207 k/mm3 (150-375); Red Blood Count 3.07 M/mm3 (4.6-6.20); Red Cell Distribution Width 18.8 % (11.5-14.5); White Blood Count 18.7 K/mm3 (4.5-10.0)
[2023-12-24 16:01] LABS: Device VENTILATOR; Site Drawn ARTLINE
[2023-12-24 16:13] LABS: Prothrombin Time 56.6 Seconds (11.1-14.7)
[2023-12-24 16:15] LABS: Lactic Acid Reflex 6.2 mmol/L (0.7-2.0); Partial Thromboplastin Time 138.2 SECONDS (22.3-36.8)
[2023-12-24 16:18] LABS: Albumin Level 2.9 g/dL (3.5-5.1); Alkaline Phosphatase 63 U/L (38-126); Anion Gap 21 mmol/L (8-16); Bilirubin,Total 1.9 mg/dL (0.2-1.3); Blood Urea Nitrogen 116 mg/dL (9-20); Calcium 9.2 mg/dL (8.4-10.2); Carbon Dioxide 11 mmol/L (22-30); Chloride 106 mmol/L (98-107); Estimated CRCL calculation 7 ml/min; Estimated Glomerular Filt Rate 6; Glucose 118 mg/dL (65-110); Magnesium 2.5 mg/dL (1.6-2.3); Phosphorus 12.1 mg/dL (2.5-4.5); Potassium 5.5 mmol/L (3.4-5.0); Sodium 138 mmol/L (137-145)
[2023-12-24 16:34] LABS: Band Neutrophils Percent 2 % (0-6); Lymphocytes Absolute Manual 0.56 K/mm3 (1.1-4.5); Monocytes Absolute Manual 1.87 K/mm3 (0.1-0.90); Monocytes Percent Manual 10 % (3-9); Neutrophils Absolute Manual 16.26 K/mm3 (1.3-6.7); Neutrophils Percent Manual 85 % (46-73); Nucleated Red Blood Cells 2 %; Platelet Estimate Adequate (Adequate); Total Cells Counted 100
[2023-12-24 16:36] LABS: Anisocytosis 2+ (NORMAL); Macrocytosis 2+ (NORMAL); Schistocytes Rare (NORMAL)
[2023-12-24 16:37] LABS: Polychromasia 1+ (NORMAL)
[2023-12-24 16:50] LABS: Alanine Aminotransferase 1452 U/L (6-50); Aspartate Amino Transferase 1822 U/L (17-59)
[2023-12-24 16:55] LABS: INR 5.7
--- NOTE | 2023-12-24 18:03 | PC.NURSE ---
1132 STEMI O/H 1133 Adela sent 1134 Call to Int Cardio Dr. De La Fuente 1141 [facility] called for Standby STEMI repeated- 1337 STEMI called O/H 1338 Adela sent [address] De La Fuente in ED 1345 [facility] called for standby
[2023-12-24] MEDS: SODIUM BICARBONATE 8.4% 50 MEQ/50 ML SYRINGE 100 MEQ IV PUSH (18:13)
[2023-12-24] MEDS: SODIUM ZIRCONIUM CYCLOSILICATE 10 GM POWD.PACK PO (18:18)
--- NOTE | 2023-12-24 18:20 | PM.CNNEP ---
Assessment and Plan Assessment and plan (1) End stage renal disease: Code(s): N18.6 - End stage renal disease Status: Chronic Assessment and Plan: missed the last 3 sessions of dialysis presented with hyperkalemia to OSH will likely need to resume dialysis due to electrolytes issues and uremia concern will be if he is stable enough to tolerate regular intermittent HD or will he need CRRT.... (2) Hyperkalemia: Code(s): E87.5 - Hyperkalemia Status: Acute Assessment and Plan: s/p medical management secondary to missed dialysis treatment likely worsened by cardiac arrest will likely need dialytic intervention to stabilize follow trend of repeat K+ levels.... (3) ST elevation (STEMI) myocardial infarction: Qualifiers: Involved coronary artery: unspecified coronary artery Qualified Code(s): I21.3 - ST elevation (STEMI) myocardial infarction of unspecified site Code(s): I21.3 - ST elevation (STEMI) myocardial infarction of unspecified site Status: Acute Assessment and Plan: as suspected by admission EKG complicated by cardiac arrest s/p cardiac catheterization with findings/interventions noted Cardioloy following (4) Cardiac arrest: Code(s): I46.9 - Cardiac arrest, cause unspecified Status: Acute Assessment and Plan: see #2 (5) Acute respiratory failure: Code(s): J96.00 - Acute respiratory failure, unspecified whether with hypoxia or hypercapnia Status: Acute Assessment and Plan: due to cardiac arrest on mechanicak ventilation weaning once more stable (6) Shock: Code(s): R57.9 - Shock, unspecified Status: Acute Assessment and Plan: secondary to cardiac arrest cardiogenic versus septic or combo of both possible component of pneumonia? follow culture data on antibiotics (7) Anemia: Code(s): D64.9 - Anemia, unspecified Status: Acute Assessment and Plan: due to ESRD and acute illness Epogen with HD follow trend of H/H Long extensive discussion (> 20 min) with the patient's son at bedside regarding the patient's critical illness in conjunction with his known history of end-stage renal disease and the likelihood that he will need further dialytic intervention if he is stable enough to tolerate this intervention given the events that have occurred in the last 24 hours. He appeared to voice understanding. I will continue follow the patient with you while remains hospitalized make further recommendations as needed. Thank you for allowing me to participate in care of this patient. History of Present Illness Reason for Consult Consult date: 12/24/23 Reason for consult: end stage renal disease Chief Complaint Chief complaint: STEMI History of Present Illness Narrative: All the information that I have obtained is from review of the electronic medical record as well as discussion with the physician/ nurses involved in the patient's care as I am unable to get any history from the patient due to his current clinical status. The patient is a 78-year-old male with a past medical history as outlined below who was transferred from [facility] Emergency room status post cardiac arrest. Apparently, the patient missed the last three his regularly scheduled dialysis treatments for unclear reasons although apparently he was having issues with chronic back pain that is partly the blame. He apparently did not feel very well and called EMS and they are in the process of transporting him to [facility] when he apparently had a cardiac arrest in route. He apparently had pulses electrical activity and ACLS protocol was initiated and he was diverted to [facility] emergency room due to the change in his clinical status. He received CPR and several rounds of epinephrine before return of systemic circulation. EKG post resuscitation demon
--- NOTE | 2023-12-24 18:20 | P.CONNP_ITS ---
Assessment and Plan Assessment and plan (1) End stage renal disease: Code(s): N18.6 - End stage renal disease Status: Chronic Assessment and Plan: * missed the last 3 sessions of dialysis * presented with hyperkalemia to OSH * will likely need to resume dialysis due to electrolytes issues and uremia * concern will be if he is stable enough to tolerate regular intermittent HD or will he need CRRT.... (2) Hyperkalemia: Code(s): E87.5 - Hyperkalemia Status: Acute Assessment and Plan: * s/p medical management * secondary to missed dialysis treatment likely worsened by cardiac arrest * will likely need dialytic intervention to stabilize * follow trend of repeat K+ levels.... * (3) ST elevation (STEMI) myocardial infarction: Qualifiers: Involved coronary artery: unspecified coronary artery Qualified Code(s): I21.3 - ST elevation (STEMI) myocardial infarction of unspecified site Code(s): I21.3 - ST elevation (STEMI) myocardial infarction of unspecified site Status: Acute Assessment and Plan: * as suspected by admission EKG * complicated by cardiac arrest * s/p cardiac catheterization with findings/interventions noted * Cardioloy following (4) Cardiac arrest: Code(s): I46.9 - Cardiac arrest, cause unspecified Status: Acute Assessment and Plan: * see #2 (5) Acute respiratory failure: Code(s): J96.00 - Acute respiratory failure, unspecified whether with hypoxia or hypercapnia Status: Acute Assessment and Plan: * due to cardiac arrest * on mechanicak ventilation * weaning once more stable (6) Shock: Code(s): R57.9 - Shock, unspecified Status: Acute Assessment and Plan: * secondary to cardiac arrest * cardiogenic versus septic or combo of both * possible component of pneumonia? * follow culture data * on antibiotics (7) Anemia: Code(s): D64.9 - Anemia, unspecified Status: Acute Assessment and Plan: * due to ESRD and acute illness * Epogen with HD * follow trend of H/H Long extensive discussion (> 20 min) with the patient's son at bedside regarding the patient's critical illness in conjunction with his known history of end- stage renal disease and the likelihood that he will need further dialytic intervention if he is stable enough to tolerate this intervention given the events that have occurred in the last 24 hours. He appeared to voice understanding. I will continue follow the patient with you while remains hospitalized make further recommendations as needed. Thank you for allowing me to participate in care of this patient. History of Present Illness Reason for Consult Consult date: 12/24/23 Reason for consult: end stage renal disease Chief Complaint Chief complaint: STEMI History of Present Illness Narrative: All the information that I have obtained is from review of the electronic medical record as well as discussion with the physician/ nurses involved in the patient's care as I am unable to get any history from the patient due to his current clinical status. The patient is a 78-year-old male with a past medical history as outlined below who was transferred from [facility] Emergency room status post cardiac arrest. Apparently, the patient missed the last three his regularly scheduled dialysis treatments for unclear reasons although apparently he was having issues with chronic back pain that is partly the blame. He apparently did not feel very
[2023-12-24] MEDS: SODIUM CHLORIDE 0.9% IV 1,000 ML 999 ML IV CONT (18:22)
[2023-12-24] MEDS: VANCOMYCIN 2,000 MG/NS 500 ML 2,000 MG/500 ML BAG 250 MG IVPB (18:32)
[2023-12-24] MEDS: CEFEPIME 2 GM/NS 50 ML 2 GM/50 ML BAG IVPB (18:32)
[2023-12-24] MEDS: ALBUMIN HUMAN 25% 25 GM/100 ML 100 ML IVPB (18:32)
[2023-12-24 18:40] LABS: Glucose Point of Care 106 mg/dl (65-105)
[2023-12-24] MEDS: PHYTONADIONE ADULT INJ 10 MG in DEXTROSE 5% IN WATER 50 ML 100 MG IVPB (20:53)
[2023-12-24] MEDS: PANTOPRAZOLE SODIUM IV 40 MG VIAL IV PUSH (20:55)
[2023-12-24] MEDS: DORNASE ALFA INH SOLN 1 MG/ML 2.5 ML AMP 2.5 MG INHALATION (21:40)
[2023-12-24] MEDS: IPRATROPIUM 0.5 MG/ALBUTEROL SULFATE 2.5 MG AMPUL.NEB 3 ML INHALATION (21:40)
[2023-12-24 22:26] LABS: MRSA (PCR) DETECTED (NOT DETECTE)
[2023-12-24 23:01] LABS: Troponin I > 80.000 ng/mL (0.000-0.034)
[2023-12-25] VITALS (53 sets, daily range): BP systolic 61–117; BP diastolic 31–86; PULSE 63–104; RESP 20–22; TEMP 35.2–37; O2SAT 88–100
[2023-12-25] MEDS: ALBUMIN HUMAN 25% 25 GM/100 ML 100 ML IVPB ×3 (00:55→12:51)
[2023-12-25 01:07] LABS: Glucose Point of Care 80 mg/dl (65-105)
[2023-12-25] MEDS: IPRATROPIUM 0.5 MG/ALBUTEROL SULFATE 2.5 MG AMPUL.NEB 3 ML INHALATION ×3 (02:28→20:05)
[2023-12-25] MEDS: MIDAZOLAM 100MG/NS 100ML(*CRX) 100 MG/100 ML BAG IV CONT (03:07)
[2023-12-25] MEDS: NOREPINEPHRINE 8 MG/D5W 250 ML 8 MG/250 ML BAG 22.5 MG IV CONT (03:38)
--- NOTE | 2023-12-25 05:11 | ECG_ITS ---
Measurements Intervals [place] Rate: 86 P: 23 DC: 268 QRS: -14 QRSD: 112 T: 45 QT: 401 QTc: 481 Interpretive Statements SINUS RHYTHM WITH FIRST DEGREE AV BLOCK LOW QRS VOLTAGE- DIFFUSE LEADS INFERIOR INFARCT, RECENT ANTEROSEPTAL INFARCT, AGE INDETERMINATE ABNORMAL ECG COMPARED TO ECG 12/24/2023 13:34:50 INFERIOR INFARCT, RECENT NOW PRESENT Electronically Signed On 12-25-2023 11:15:00 METAL CRAFTS TEACHER by Herve Alicia D.O.
[2023-12-25 05:38] LABS: Alveolar/Arterial O2 Gradient 72.7 mmHg; Base Excess ABG -14.5 mEq/l (+/-2.0); Fractional Inspired Oxygen 30 %; HCO3 ABG 9.9 mEq/l (22.0-26.0); Oxygen Content ABG 15.4 %vol (16.0-22.0); Oxyhemoglobin 96.3 % THb (90.0-100.0); PCO2 ABG 20.4 mmHg (35.0-45.0); PO2 ABG 117.2 mmHg (80.0-100.0); PO2 FiO2 Ratio Arterial Blood 3.91 %; Total Hemoglobin 11.2 g/dL (12.0-18.0); pH ABG 7.304 (7.350-7.450)
[2023-12-25 05:39] LABS: Arterial Blood Gas PEEP 5 cmH2O; Arterial Blood Gas Tidal Volume 500 ml; Arterial Blood Gas Vent Mode CMV; Arterial Blood Gas Ventilator rate 20 /MIN; Device VENTILATOR; Site Drawn ARTLINE
[2023-12-25 05:56] LABS: Hematocrit 34.8 % (42.0-52.0); Hemoglobin 10.7 g/dL (14.0-18.0); Mean Corpuscular HGB Conc 30.7 g/dl (32-36); Mean Corpuscular Hemoglobin 34.2 pg (26-34); Mean Corpuscular Volume 111.2 fl (80-100); Mean Platelet Volume 10.6 fl (7.4-10.4); Platelet Count Result 192 k/mm3 (150-375); Red Blood Count 3.13 M/mm3 (4.6-6.20); White Blood Count 17.6 K/mm3 (4.5-10.0)
[2023-12-25 06:08] LABS: Prothrombin Time 33.5 Seconds (11.1-14.7)
[2023-12-25 06:09] LABS: Partial Thromboplastin Time 51.2 SECONDS (22.3-36.8)
[2023-12-25 06:12] LABS: Albumin Level 3.7 g/dL (3.5-5.1); Alkaline Phosphatase 69 U/L (38-126); Anion Gap 26 mmol/L (8-16); Bilirubin,Total 2.8 mg/dL (0.2-1.3); Blood Urea Nitrogen 117 mg/dL (9-20); Calcium 8.9 mg/dL (8.4-10.2); Carbon Dioxide 11 mmol/L (22-30); Chloride 106 mmol/L (98-107); Estimated CRCL calculation 7 ml/min; Estimated Glomerular Filt Rate 5; Glucose 53 mg/dL (65-110); Magnesium 2.5 mg/dL (1.6-2.3); Phosphorus 11.9 mg/dL (2.5-4.5); Potassium 6.4 mmol/L (3.4-5.0); Sodium 143 mmol/L (137-145)
[2023-12-25] MEDS: DEXTROSE 50% 25 GM/50 ML SYRINGE IV PUSH ×3 (06:16→09:14)
[2023-12-25 06:31] LABS: Band Neutrophils Percent 1 % (0-6); Burr Cells 1+ (NORMAL); Large Platelets Present; Lymphocytes Absolute Manual 0.88 K/mm3 (1.1-4.5); Monocytes Percent Manual 8 % (3-9); Neutrophils Absolute Manual 15.31 K/mm3 (1.3-6.7); Neutrophils Percent Manual 86 % (46-73); Nucleated Red Blood Cells 1 %; Platelet Estimate Decreased (Adequate); Polychromasia 1+ (NORMAL); Schistocytes Rare (NORMAL); Total Cells Counted 100
[2023-12-25 06:32] LABS: Anisocytosis 1+ (NORMAL)
[2023-12-25 06:33] LABS: Vancomycin Random 20.1 ug/mL (10-20)
[2023-12-25 07:07] LABS: Glucose Point of Care 78 mg/dl (65-105)
[2023-12-25 07:24] LABS: Hepatitis B Surface Antigen Negative (Negative)
[2023-12-25 07:24] LABS: Alanine Aminotransferase 2051 U/L (6-50); Aspartate Amino Transferase 2813 U/L (17-59)
[2023-12-25 07:41] LABS: Hepatitis B Surface Anti Res Negative
[2023-12-25] MEDS: ALBUTEROL SULFATE NEB 2.5 MG/3 ML INH 20 MG INHALATION (08:05)
--- NOTE | 2023-12-25 08:28 | WPDCNINT ---
Assessment and Plan Assessment and plan (1) Cardiac arrest: Code(s): I46.9 - Cardiac arrest, cause unspecified Status: Acute Assessment and Plan: 12/24: PEA arrest with ambulance picked him a to taking for dialysis, after which [place] [facility] [place] [facility] achieved approximately 15 minutes, patient was placed on epinephrine infusion -EGD at the outside hospital showed inferior STEMI, patient was transferred to [facility] ER a epinephrine was switched to Levophed for hypotension -cardiology evaluated the patient at [facility] and was taken to the slab puller (2) ST elevation (STEMI) myocardial infarction: Qualifiers: Involved coronary artery: unspecified coronary artery Qualified Code(s): I21.3 - ST elevation (STEMI) myocardial infarction of unspecified site Code(s): I21.3 - ST elevation (STEMI) myocardial infarction of unspecified site Status: Acute Assessment and Plan: In the slab puller patient underwent a PTCA where they could could balloon only his RCA, the vessel could not be stented due to being heavily calcified. Total occlusion of the LAD proximally and 80% stenosis in the proximal stented segment of the LAD as well. Total occlusion of circumflex after 1 tiny proximal OM1 around, LV enlargement with severe systolic hypokinesia with an EF of 25%. -Venous and arterial sheath was left in place and patient was transferred to the ICU for further management. -patient started on aspirin, Plavix, atorvastatin -cardiology following the patient closely (3) Acute respiratory failure: Code(s): J96.00 - Acute respiratory failure, unspecified whether with hypoxia or hypercapnia Status: Acute Assessment and Plan: Acute respiratory failure likely related to cardiac arrest, STEMI, metabolic acidosis -12/24: Intubated -currently on CMV mode of ventilation, peep of 5, 30% FiO2 -chest x-ray is morning: Stable mild interstitial edema. -ABGs reviewed -sedated Versed 1 mg/hr only Will DC sedation and allow him to wake up 12/24/2023 CT chest abdomen and pelvis: 1. Endotracheal tube tip in the right mainstem bronchus. The tube has reportedly since been withdrawn 2 cm. 2. Small pleural effusions. 3. Polycystic kidney disease. 4. Small volume of ascites (4) Shock: Code(s): R57.9 - Shock, unspecified Status: Acute Assessment and Plan: Patient in shock likely related to cardiac arrest, STEMI, metabolic acidosis, acute respiratory failure, -cardiogenic versus Infectious -continue Levophed, maintain MAP > 70 mmHg at all times for adequate end organ perfusion -elevated lactic levels, will repeat this morning -started on cefepime and vancomycin (12/24) -12/24: Blood cultures have been obtained (5) End stage renal disease on dialysis: Code(s): N18.6 - End stage renal disease; Z99.2 - Dependence on renal dialysis Status: Acute Assessment and Plan: Patient with end-stage renal disease, missed dialysis x3 sessions -was being taken for dialysis from home an ambulance when he had a cardiac arrest in the ambulance was diverted to the ER. -nephrology is following the patient -severe metabolic acidosis currently being treated with sodium bicarb IV pushes -discussed with Nephrology, will try and dialyze him today with no removal of fluid (6) Hyperkalemia: Code(s): E87.5 - Hyperkalemia Status: Acute Assessment and Plan: Remains hyperkalemic, likely related to end-stage renal disease, metabolic acidosis, shock with aggressively treat hyperkalemia with Lokelma, insulin and D50, sodium bicarbonate, albuterol nebulizer (7) Metabolic acidosis: Code(s): E87.20 - Acidosis, unspecified Status: Acute Assessment and Plan: Likely related to shock, end-stage renal disease -continue to treat underlying cause -refractory metabolic acidosis, will require dialysis today (8) Shock liver:
[2023-12-25] MEDS: ALBUTEROL SULFATE NEB 2.5 MG/3 ML INH 20 MG (08:35)
[2023-12-25] MEDS: DORNASE ALFA INH SOLN 1 MG/ML 2.5 ML AMP 2.5 MG INHALATION ×2 (08:36→20:05)
--- NOTE | 2023-12-25 08:57 | PM.PNCARD ---
Progress Note: A&P Assessment and Plan (1) Cardiac arrest: Code(s): I46.9 - Cardiac arrest, cause unspecified Status: Acute Assessment and Plan: s/p PEA arrest likely secondary to noncompliance with hemodialysis resulting hyperkalemia metabolic acidosis. This likely triggered subsequent inferior ST-elevation myocardial infarction. He remains hyperkalemic and in need of hemodialysis. Hemodialysis will be attempted at bedside per nephrology however concern with regards to hemodynamic tolerance pressor support. CRRT is not available at this institution unfortunately. Patient extremely complicated unfortunately unlikely to survive his presentation. (2) ST elevation (STEMI) myocardial infarction: Qualifiers: Involved coronary artery: unspecified coronary artery Qualified Code(s): I21.3 - ST elevation (STEMI) myocardial infarction of unspecified site Code(s): I21.3 - ST elevation (STEMI) myocardial infarction of unspecified site Status: Acute Assessment and Plan: Status post balloon angioplasty to diffusely diseased mid distal RCA with improvement of flow. LINEN SUPERVISOR distal LAD and circumflex with [id number] collateral filling. Severe ischemic cardiomyopathy EF 25%. Troponin greater than 80. Must continue aspirin 81 mg daily and clopidogrel 75 mg daily given recent intervention in the setting of inferior ST-elevation myocardial infarction. DVT prophylaxis. Continue atorvastatin 80 mg daily. (3) Shock: Code(s): R57.9 - Shock, unspecified Status: Acute Assessment and Plan: Patient remains in cardiogenic shock with severe LV systolic dysfunction status post inferior ST-elevation myocardial infarction. He has multiorgan system failure with shock liver, respiratory failure requiring intubation, end-stage renal disease, anemia. Prognosis is very poor given multiorgan system failure. Code status discussions in progress with family already with Critical Care. Neuro recovery questionable but critical. Cooling protocol post-arrest interrupted secondary to ST-elevation MT. (4) Ischemic cardiomyopathy: Code(s): I25.5 - Ischemic cardiomyopathy Status: Acute Assessment and Plan: Severe LV dysfunction EF 25% subsequent to inferior ST-elevation MT. monitor volume status, management per hemodialysis as tolerates hemodynamically. Unable to optimize guideline directed medical therapy due to shock. (5) End stage renal disease on dialysis: Code(s): N18.6 - End stage renal disease; Z99.2 - Dependence on renal dialysis Status: Acute Assessment and Plan: Hemodialysis per Nephrology. Attempts at filtration with minimal fluid removal will be made although concerns with regards to his ability to tolerate hemodynamically. Continue IV pressors adjust as warranted with Levophed. If he is unable to tolerate hemodialysis he has no chance for survival let alone any meaningful recovery which is a secondary issue. (6) Coagulopathy: Code(s): D68.9 - Coagulation defect, unspecified Status: Acute Assessment and Plan: INR 3.0. Continue to monitor closely. Follow H&H, monitor for bleeding. However, must continue dual antiplatelet therapy as tolerated considering including angioplasty. (7) Hyperkalemia: Code(s): E87.5 - Hyperkalemia Status: Acute Assessment and Plan: Significant hyperkalemia potassium 6.3 today. Management with hemodialysis planned. Subjective Date/time seen: Date of service: 12/25/23 08:57 Follow-up for PEA arrest followed by inferior ST-elevation MT Interval history: Patient remains intubated and sedated on pressor support. He is nonresponsive. Nursing reports reflex reaction with manipulation of his feet occasional spontaneous movement of his arm and head movement. FiO2 30%. Review of Systems Review of Systems: ROS unobtainable: Yes unobtainable due to endotracheal tube and unobtainable due to mental status
[2023-12-25] MEDS: ATORVASTATIN 40 MG TABLET 80 MG PO (09:09)
[2023-12-25] MEDS: CLOPIDOGREL BISULFATE 75 MG TABLET PO (09:09)
[2023-12-25] MEDS: SODIUM ZIRCONIUM CYCLOSILICATE 10 GM POWD.PACK PO (09:09)
[2023-12-25] MEDS: ASPIRIN 81 MG CHEWABLE TABLET PO (09:09)
[2023-12-25] MEDS: PANTOPRAZOLE SODIUM IV 40 MG VIAL IV PUSH ×2 (09:09→21:56)
[2023-12-25] MEDS: SODIUM BICARBONATE 8.4% 50 MEQ/50 ML SYRINGE 100 MEQ IV PUSH (09:09)
[2023-12-25] MEDS: INSULIN HUMAN REGULAR (*BKC) 100 UNITS/ML 10 UNITS IV PUSH (09:14)
[2023-12-25 10:51] LABS: Lactic Acid Reflex 9.4 mmol/L (0.7-2.0)
--- NOTE | 2023-12-25 12:50 | WPDPROCEDUR ---
Procedures Hemodialysis Catheter Placement Left IJ: Discussed w/ patient and/or surrogate, the non-emergent placement of a hemodialysis catheter, including it's clinincal necessity/indication & associated potential risks & complications.: Yes The patient and/or surrogate understand(s) and acknowledge(s) the need to proceed with hemodialysis catheter insertion as an important element of the patient's clinical management.: Yes Consent: Obtained from sons who are next of kin and making decisions for him currently HD Catheter Date: 12/25/23 HD Catheter Time: 12:51 Pre-procedural Time-Out was completed immediately before starting the procedure and confirmed: Patient Identification, Site, Procedure, Patient Position and the Availability of Requisite Equipment.: Yes Patient Position: supine Patient Placed on Monitor/Pulse Ox: Yes Provider Prep: mask, sterile gown, sterile gloves, Max. sterile barrier precautions, cap and hand hygiene Hemodialysis Catheter Prep: Chlorhexidine scrub and sterile full body sheet applied Local Anesthesia Used: lidocaine 1% Amount of anesthesia used (mL): 4 Ultrasound Used for Placement: Yes Hemodialysis Catheter Inserted: triple Luxembourgish: 8 Length (cm): 20 Depth of Insertion (cm): 20 Post Procedure: sutured in place, good blood return, all ports aspirated, flushed, capped, transparent dressing, hemostatic product, antimicrobial product, securement product and aseptic technique maintained throughout procedure Post Procedure X-Ray: tip of catheter in good position and no pneumothorax seen Patient Tolerated Procedure: well Complications: none
[2023-12-25] MEDS: INSULIN ASPART (*BKC) 100 UNITS/ML SUB-Q (13:07)
[2023-12-25 13:14] LABS: Glucose Point of Care 235 mg/dl (65-105)
[2023-12-25 13:32] LABS: Reflex Lactic Acid Yes or No Add Lactic
[2023-12-25] MEDS: NOREPINEPHRINE 8 MG/D5W 250 ML 8 MG/250 ML BAG 24.38 MG IV CONT (14:38)
[2023-12-25] MEDS: ALBUMIN HUMAN 25% 12.5 GM/50ML 50 ML IVPB ×3 (16:56→18:51)
[2023-12-25 19:04] LABS: Glucose Point of Care 124 mg/dl (65-105)
[2023-12-25] MEDS: CEFEPIME 2 GM/NS 50 ML 2 GM/50 ML BAG IVPB (21:31)
--- NOTE | 2023-12-25 21:51 | P.PNNP_ITS ---
Progress Note: A&P Assessment and Plan (1) End stage renal disease: Code(s): N18.6 - End stage renal disease Status: Chronic Assessment and Plan: * missed the last 3 sessions of dialysis * presented with hyperkalemia to OSH * plan is to do dialysis. * no fluid removal as bp is too low and cxr is clear. * discussed with Dr Foster (2) Hyperkalemia: Code(s): E87.5 - Hyperkalemia Status: Acute Assessment and Plan: * s/p medical management * K 6.4, to get dialysis on low K bath * (3) ST elevation (STEMI) myocardial infarction: Qualifiers: Involved coronary artery: unspecified coronary artery Qualified Code(s): I21.3 - ST elevation (STEMI) myocardial infarction of unspecified site Code(s): I21.3 - ST elevation (STEMI) myocardial infarction of unspecified site Status: Acute Assessment and Plan: * as suspected by admission EKG * complicated by cardiac arrest * s/p cardiac catheterization with findings/interventions noted * Cardioloy following * bp still low requiring pressors (4) Cardiac arrest: Code(s): I46.9 - Cardiac arrest, cause unspecified Status: Acute Assessment and Plan: * see #2 (5) Acute respiratory failure: Code(s): J96.00 - Acute respiratory failure, unspecified whether with hypoxia or hypercapnia Status: Acute Assessment and Plan: * due to cardiac arrest * on mechanicak ventilation * weaning once more stable (6) Shock: Code(s): R57.9 - Shock, unspecified Status: Acute Assessment and Plan: * secondary to cardiac arrest * cardiogenic versus septic or combo of both * possible component of pneumonia? * follow culture data * on cefipime and vanco (7) Anemia: Code(s): D64.9 - Anemia, unspecified Status: Acute Assessment and Plan: * due to ESRD and acute illness * Epogen with HD * hb 10.7 and stable Subjective Date/time seen: 12/25/23 21:51 Interval history: pt is on vent and sedated. son in the room. to get dialysis later. nurse came in ths am and access infiltrated so now plan is to have catheter placed and start dialysis using the catheter later today Review of Systems Cardiovascular: Cardiovascular: Reports no additional cardiovascular complaints Respiratory: Respiratory: Reports no additional respiratory complaints Gastrointestinal: Gastrointestinal: Reports no additional gastrointestinal complaints Genitourinary: Genitourinary: Reports no additional male genitourinary complaints Exam Narrative: WDWN male on vent and sedated in NAD skin no rash head ncat lungs coarse cor reg no rub abd BS+ nontender and soft ext 1+ edema. Objective Data Vital Signs Vital Signs: Vital Signs - 24 hr 12/24/23 22:00 12/24/23 22:00 12/24/23 23:15 Temperature 95.7 F L Pulse Rate 69 69 72 Respiratory Rate 20 Blood Pressure 102/52 L Pulse Oximetry 100 100 Oxygen Delivery Mechanical Ventilation Fraction of Inspired Oxygen 40 12/25/23 02:28 12/25/23 02:20 12/25/23 02:34 Temperature Pulse Rate 68 69 79 Respiratory Rate 20 20 Blood Pressure Pulse Oximetry 99 Oxygen Delivery
--- NOTE | 2023-12-25 21:51 | PM.PNNEP ---
Progress Note: A&P Assessment and Plan (1) End stage renal disease: Code(s): N18.6 - End stage renal disease Status: Chronic Assessment and Plan: missed the last 3 sessions of dialysis presented with hyperkalemia to OSH plan is to do dialysis. no fluid removal as bp is too low and cxr is clear. discussed with Dr Foster (2) Hyperkalemia: Code(s): E87.5 - Hyperkalemia Status: Acute Assessment and Plan: s/p medical management K 6.4, to get dialysis on low K bath (3) ST elevation (STEMI) myocardial infarction: Qualifiers: Involved coronary artery: unspecified coronary artery Qualified Code(s): I21.3 - ST elevation (STEMI) myocardial infarction of unspecified site Code(s): I21.3 - ST elevation (STEMI) myocardial infarction of unspecified site Status: Acute Assessment and Plan: as suspected by admission EKG complicated by cardiac arrest s/p cardiac catheterization with findings/interventions noted Cardioloy following bp still low requiring pressors (4) Cardiac arrest: Code(s): I46.9 - Cardiac arrest, cause unspecified Status: Acute Assessment and Plan: see #2 (5) Acute respiratory failure: Code(s): J96.00 - Acute respiratory failure, unspecified whether with hypoxia or hypercapnia Status: Acute Assessment and Plan: due to cardiac arrest on mechanicak ventilation weaning once more stable (6) Shock: Code(s): R57.9 - Shock, unspecified Status: Acute Assessment and Plan: secondary to cardiac arrest cardiogenic versus septic or combo of both possible component of pneumonia? follow culture data on cefipime and vanco (7) Anemia: Code(s): D64.9 - Anemia, unspecified Status: Acute Assessment and Plan: due to ESRD and acute illness Epogen with HD hb 10.7 and stable Subjective Date/time seen: 12/25/23 21:51 Interval history: pt is on vent and sedated. son in the room. to get dialysis later. nurse came in ths am and access infiltrated so now plan is to have catheter placed and start dialysis using the catheter later today Review of Systems Cardiovascular: Cardiovascular: Reports no additional cardiovascular complaints Respiratory: Respiratory: Reports no additional respiratory complaints Gastrointestinal: Gastrointestinal: Reports no additional gastrointestinal complaints Genitourinary: Genitourinary: Reports no additional male genitourinary complaints Exam Narrative: WDWN male on vent and sedated in NAD skin no rash head ncat lungs coarse cor reg no rub abd BS+ nontender and soft ext 1+ edema. Objective Data Vital Signs Vital Signs: Vital Signs - 24 hr 12/24/23 22:00 12/24/23 22:00 12/24/23 23:15 Temperature 95.7 F L Pulse Rate 69 69 72 Respiratory Rate 20 Blood Pressure 102/52 L Pulse Oximetry 100 100 Oxygen Delivery Mechanical Ventilation Fraction of Inspired Oxygen 40 12/25/23 02:28 12/25/23 02:20 12/25/23 02:34 Temperature Pulse Rate 68 69 79 Respiratory Rate 20 20 Blood Pressure Pulse Oximetry 99 Oxygen Delivery Mechanical Ventilation Fraction of Inspired Oxygen 30 12/25/23 03:07 12/24/23 22:00 12/25/23 00:00 Temperature Pulse Rate 76 69 71 Respiratory Rate 20 Blood Pressure 102/52 L 87/63 L Pulse Oximetry Oxygen Delivery Fraction of Inspired Oxygen 12/25/23 02:00 12/25/23 03:38 12/25/23 03:38 Temperature Pulse Rate 73 63 63 Respiratory Rate Blood Pressure 61/31 L 93/52 L 93/52 L Pulse Oximetry Oxygen Delivery Fraction of Inspired Oxygen 12/25/23 00:00 12/25/23 00:00 12/25/23 00:00 Temperature 95.9 F L Pulse Rate 78 78 Respiratory Rate 20 Blood Pressure 87/51 L Pulse Oximetry 100 Oxygen Delivery Fraction of Inspired Oxygen 40 12/25/23 00:00 12/25/23 05:15 12/25/23 08:06 Temperat
[2023-12-25] MEDS: SODIUM CHLORIDE 0.9% IV 1,000 ML 999 ML IV CONT (21:52)
[2023-12-25] MEDS: HEPARIN SODIUM 1,000 UNITS/ML VIAL 5000 UNITS (21:54)
[2023-12-25] MEDS: VANCOMYCIN 500 MG/NS 100 ML 500 MG/100 ML BAG 100 MG IVPB (22:06)
[2023-12-26] VITALS (53 sets, daily range): BP systolic 88–114; BP diastolic 53–94; PULSE 96–112; RESP 17–20; TEMP 36.3–37.3; O2SAT 92–99; BMI 31.3
[2023-12-26] MEDS: ALBUMIN HUMAN 25% 25 GM/100 ML 100 ML IVPB (00:11)
[2023-12-26] MEDS: NOREPINEPHRINE 8 MG/D5W 250 ML 8 MG/250 ML BAG 26.25 MG IV CONT (00:15)
[2023-12-26 00:26] LABS: Glucose Point of Care 76 mg/dl (65-105)
[2023-12-26] MEDS: IPRATROPIUM 0.5 MG/ALBUTEROL SULFATE 2.5 MG AMPUL.NEB 3 ML INHALATION ×4 (02:04→20:17)
[2023-12-26 05:35] LABS: Alveolar/Arterial O2 Gradient 157.4 mmHg; Base Excess ABG -0.7 mEq/l (+/-2.0); Carboxyhemoglobin 0.5 % THb (0-2.0); Fractional Inspired Oxygen 50 %; Methemoglobin ABG 0.3 %THb (0-1.5); Oxygen Content ABG 14.4 %vol (16.0-22.0); Oxygen Saturation ABG 99.4 % (95.0-100.0); Oxyhemoglobin 98.1 % THb (90.0-100.0); PCO2 ABG 25.5 mmHg (35.0-45.0); PO2 ABG 170.4 mmHg (80.0-100.0); PO2 FiO2 Ratio Arterial Blood 3.41 %; Reduced Hemoglobin 1.1 %THb (0-5.0); Total Hemoglobin 10.2 g/dL (12.0-18.0)
[2023-12-26 05:40] LABS: Device VENTILATOR; Site Drawn ARTLINE; pH ABG 7.533 (7.350-7.450)
[2023-12-26 05:41] LABS: Arterial Blood Gas PEEP 5 cmH2O; Arterial Blood Gas Tidal Volume 500 ml; Arterial Blood Gas Vent Mode CMV; Arterial Blood Gas Ventilator rate 20 /MIN
[2023-12-26 05:49] LABS: Hematocrit 30.2 % (42.0-52.0); Hemoglobin 9.7 g/dL (14.0-18.0); Mean Corpuscular HGB Conc 32.1 g/dl (32-36); Mean Corpuscular Hemoglobin 33.8 pg (26-34); Mean Corpuscular Volume 105.2 fl (80-100); Mean Platelet Volume 11.2 fl (7.4-10.4); Platelet Count Result 134 k/mm3 (150-375); Red Blood Count 2.87 M/mm3 (4.6-6.20); Red Cell Distribution Width 19.2 % (11.5-14.5); White Blood Count 16.9 K/mm3 (4.5-10.0)
[2023-12-26 06:05] LABS: Glucose Point of Care 105 mg/dl (65-105)
[2023-12-26 06:26] LABS: Anisocytosis 1+ (NORMAL); Platelet Estimate Decreased (Adequate)
[2023-12-26 06:27] LABS: Macrocytosis 1+ (NORMAL); Schistocytes Rare (NORMAL)
[2023-12-26 06:33] LABS: Band Neutrophils Percent 3 % (0-6); INR 3.7; Lymphocytes Absolute Manual 1.52 K/mm3 (1.1-4.5); Metamyelocytes Percent 2 %; Monocytes Absolute Manual 0.67 K/mm3 (0.1-0.90); Monocytes Percent Manual 4 % (3-9); Myelocytes Percent 1 %; Neutrophils Absolute Manual 14.19 K/mm3 (1.3-6.7); Neutrophils Percent Manual 81 % (46-73); Nucleated Red Blood Cells 17 %; Prothrombin Time 39.6 Seconds (11.1-14.7); Total Cells Counted 100
[2023-12-26 06:34] LABS: Partial Thromboplastin Time 47.9 SECONDS (22.3-36.8)
[2023-12-26 06:43] LABS: Albumin Level 4.1 g/dL (3.5-5.1); Alkaline Phosphatase 67 U/L (38-126); Anion Gap 21 mmol/L (8-16); Bilirubin,Total 3.6 mg/dL (0.2-1.3); Blood Urea Nitrogen 76 mg/dL (9-20); Calcium 7.9 mg/dL (8.4-10.2); Carbon Dioxide 20 mmol/L (22-30); Chloride 100 mmol/L (98-107); Estimated CRCL calculation 11 ml/min; Estimated Glomerular Filt Rate 9; Glucose 108 mg/dL (65-110); Magnesium 2.2 mg/dL (1.6-2.3); Phosphorus 6.6 mg/dL (2.5-4.5); Potassium 4.4 mmol/L (3.4-5.0); Sodium 141 mmol/L (137-145)
[2023-12-26 07:02] LABS: Alanine Aminotransferase 3402 U/L (6-50); Aspartate Amino Transferase 4357 U/L (17-59)
--- NOTE | 2023-12-26 08:03 | WPDINTPN ---
Progress Note: A&P Assessment and Plan (1) Cardiac arrest: Code(s): I46.9 - Cardiac arrest, cause unspecified Status: Acute Assessment and Plan: 12/24: PEA arrest when ambulance picked him up from his house to take him for dialysis, after which the ambulance was diverted to [facility] in [facility] achieved approximately 15 minutes, patient was placed on epinephrine infusion -EKG at the outside hospital showed inferior STEMI, patient was transferred to [facility], epinephrine infusion was switched to Levophed for hypotension/shock -cardiology evaluated the patient at [place] [facility] and was taken to the [facility] -continue aspirin, Plavix, atorvastatin -cardiology following the patient Overnight he did have a 50 beat run of V-tach, cardiology was made aware (2) ST elevation (STEMI) myocardial infarction: Qualifiers: Involved coronary artery: unspecified coronary artery Qualified Code(s): I21.3 - ST elevation (STEMI) myocardial infarction of unspecified site Code(s): I21.3 - ST elevation (STEMI) myocardial infarction of unspecified site Status: Acute Assessment and Plan: In the [facility] patient underwent a PTCA where they could could balloon only his RCA, the vessel could not be stented due to being heavily calcified. Total occlusion of the LAD proximally and 80% stenosis in the proximal stented segment of the LAD as well. Total occlusion of circumflex after 1 tiny proximal OM1 around, LV enlargement with severe systolic hypokinesia with an EF of 25%. -Venous and arterial sheath was left in place and patient was transferred to the ICU for further management. -continue aspirin, Plavix, atorvastatin -cardiology following the patient closely (3) Acute respiratory failure: Code(s): J96.00 - Acute respiratory failure, unspecified whether with hypoxia or hypercapnia Status: Acute Assessment and Plan: Acute respiratory failure likely related to cardiac arrest, STEMI, metabolic acidosis -12/24: Intubated -currently on CMV mode of ventilation, peep of 5, 30% FiO2 -chest x-ray is morning: Stable bilateral airspace disease which may represent edema or pneumonia. -ABGs reviewed, decrease tidal volume to 450 mL an respiratory rate to 18 -sedated Versed 1 mg/hr only Will DC sedation and allow him to wake up 12/24/2023 CT chest abdomen and pelvis: 1. Endotracheal tube tip in the right mainstem bronchus. The tube has reportedly since been withdrawn 2 cm. 2. Small pleural effusions. 3. Polycystic kidney disease. 4. Small volume of ascites (4) Shock: Code(s): R57.9 - Shock, unspecified Status: Acute Assessment and Plan: Patient in shock likely related to cardiac arrest, STEMI, metabolic acidosis, acute respiratory failure, -cardiogenic versus Infectious -continue Levophed, maintain MAP > 70 mmHg and or SBP > 100 mmHg at all times for adequate end organ perfusion -lactic acid levels trending down, metabolic acidosis improved with dialysis -continue cefepime and vancomycin (12/24) -12/24: Blood cultures with no no growth x2 -12/24: MRSA screen was positive (5) End stage renal disease on dialysis: Code(s): N18.6 - End stage renal disease; Z99.2 - Dependence on renal dialysis Status: Acute Assessment and Plan: Patient with end-stage renal disease, missed dialysis x3 sessions -was being taken for dialysis from home in the ambulance when he had a cardiac arrest and the ambulance was diverted to the ER. -nephrology is following the patient -severe metabolic acidosis currently being treated with sodium bicarb IV pushes -12/25: Temporary dialysis catheter was inserted and the left IJ -12/25: Received dialysis without any removal of fluid, patient did tolerate dialysis -will discuss with Nephrology regarding dialyzing him again today (6) Hyperkalemia: Code(s): E87.5 - Hyperkalemia Status: Acute Assessment and Plan
[2023-12-26 08:43] LABS: Reflex Lactic Acid Yes or No Add Lactic
[2023-12-26] MEDS: CLOPIDOGREL BISULFATE 75 MG TABLET PO (08:57)
[2023-12-26] MEDS: ATORVASTATIN 40 MG TABLET 80 MG PO (08:57)
[2023-12-26] MEDS: ASPIRIN 81 MG CHEWABLE TABLET PO (08:57)
[2023-12-26] MEDS: PANTOPRAZOLE SODIUM IV 40 MG VIAL IV PUSH ×2 (08:57→21:30)
[2023-12-26] MEDS: DORNASE ALFA INH SOLN 1 MG/ML 2.5 ML AMP 2.5 MG INHALATION ×2 (09:05→20:17)
[2023-12-26 10:54] LABS: Ammonia < 9 umol/L (9-30); Lactic Acid 3.1 mmol/L (0.7-2.0)
[2023-12-26] MEDS: NOREPINEPHRINE 8 MG/D5W 250 ML 8 MG/250 ML BAG 24.38 MG IV CONT ×2 (11:22→22:10)
[2023-12-26 11:27] LABS: Glucose Point of Care 81 mg/dl (65-105)
[2023-12-26 11:29] LABS: Hepatitis B Surface Antigen Negative (Negative)
[2023-12-26 11:35] LABS: HAV RESULT Negative (Negative); Hepatitis B Core IgM Result Negative (Negative)
[2023-12-26 11:47] LABS: Hepatitis C Virus Antibody Negative (Negative)
--- NOTE | 2023-12-26 12:01 | P.PNNP_ITS ---
Progress Note: A&P Assessment and Plan (1) End stage renal disease: Code(s): N18.6 - End stage renal disease Status: Chronic Assessment and Plan: * The patient had dialysis yesterday and tolerated fairly well. * Potassium is better. * Blood pressure still is low but fairly stable on 12 mics of norepinephrine. * He is on 50% oxygen now and chest x-ray does show some fluid today. * CO2 is still mildly low. * Will go ahead and do another treatment today and try to take fluid off as tolerated by his blood pressure. * discussed with Dr Foster (2) Hyperkalemia: Code(s): E87.5 - Hyperkalemia Status: Acute Assessment and Plan: * Potassium okay today (3) ST elevation (STEMI) myocardial infarction: Qualifiers: Involved coronary artery: unspecified coronary artery Qualified Code(s): I21.3 - ST elevation (STEMI) myocardial infarction of unspecified site Code(s): I21.3 - ST elevation (STEMI) myocardial infarction of unspecified site Status: Acute Assessment and Plan: * as suspected by admission EKG * complicated by cardiac arrest * s/p cardiac catheterization with findings/interventions noted * Severe LV systolic dysfunction (EF 25%) noted on catheterization. * Cardiology following * Discussed with Dr. Smith (4) Cardiac arrest: Code(s): I46.9 - Cardiac arrest, cause unspecified Status: Acute Assessment and Plan: * see #2 (5) Acute respiratory failure: Code(s): J96.00 - Acute respiratory failure, unspecified whether with hypoxia or hypercapnia Status: Acute Assessment and Plan: * due to cardiac arrest * on mechanical ventilation * Still on quite a bit of support. (6) Shock: Code(s): R57.9 - Shock, unspecified Status: Acute Assessment and Plan: * secondary to cardiac arrest * cardiogenic versus septic or combo of both * possible component of pneumonia? * follow culture data * on cefipime and vanco * Still on 12 mics of Levophed * Has consequent shock liver with very high ALT AST and also has poor mental status right now. (7) Anemia: Code(s): D64.9 - Anemia, unspecified Status: Acute Assessment and Plan: * due to ESRD and acute illness * Epogen with HD * hb 10.7 and stable Subjective Date/time seen: 12/26/23 12:01 Interval history: Patient is off sedatives. Not interactive. Son and friend are in the room. Exam Narrative: WDWN male on vent and sedated in NAD skin no rash or subQ nodules head ncat lungs coarse cor reg no rub or gallop abd BS+ nontender and soft ext 1+ bilateral edema. Objective Data Vital Signs Vital Signs: Vital Signs - 24 hr 12/25/23 14:32 12/25/23 14:39 12/25/23 14:40 Temperature Pulse Rate 91 92 92 Respiratory Rate 20 20 Blood Pressure Pulse Oximetry 99 Oxygen Delivery Mechanical Ventilation Fraction of Inspired Oxygen 60 12/25/23 14:01 12/25/23 14:38 12/25/23 13:00 Temperature Pulse Rate 92 92 90 Respiratory Rate Blood Pressure 107/70 107/70 113/67 Pulse Oximetry Oxygen Delivery Fraction of Inspired Oxygen 12/25/23 14:00 12/25/23 14:00 12/25/23 13:00 Temperature 9
--- NOTE | 2023-12-26 12:01 | PM.PNNEP ---
Progress Note: A&P Assessment and Plan (1) End stage renal disease: Code(s): N18.6 - End stage renal disease Status: Chronic Assessment and Plan: The patient had dialysis yesterday and tolerated fairly well. Potassium is better. Blood pressure still is low but fairly stable on 12 mics of norepinephrine. He is on 50% oxygen now and chest x-ray does show some fluid today. CO2 is still mildly low. Will go ahead and do another treatment today and try to take fluid off as tolerated by his blood pressure. discussed with Dr Foster (2) Hyperkalemia: Code(s): E87.5 - Hyperkalemia Status: Acute Assessment and Plan: Potassium okay today (3) ST elevation (STEMI) myocardial infarction: Qualifiers: Involved coronary artery: unspecified coronary artery Qualified Code(s): I21.3 - ST elevation (STEMI) myocardial infarction of unspecified site Code(s): I21.3 - ST elevation (STEMI) myocardial infarction of unspecified site Status: Acute Assessment and Plan: as suspected by admission EKG complicated by cardiac arrest s/p cardiac catheterization with findings/interventions noted Severe LV systolic dysfunction (EF 25%) noted on catheterization. Cardiology following Discussed with Dr. Smith (4) Cardiac arrest: Code(s): I46.9 - Cardiac arrest, cause unspecified Status: Acute Assessment and Plan: see #2 (5) Acute respiratory failure: Code(s): J96.00 - Acute respiratory failure, unspecified whether with hypoxia or hypercapnia Status: Acute Assessment and Plan: due to cardiac arrest on mechanical ventilation Still on quite a bit of support. (6) Shock: Code(s): R57.9 - Shock, unspecified Status: Acute Assessment and Plan: secondary to cardiac arrest cardiogenic versus septic or combo of both possible component of pneumonia? follow culture data on cefipime and vanco Still on 12 mics of Levophed Has consequent shock liver with very high ALT AST and also has poor mental status right now. (7) Anemia: Code(s): D64.9 - Anemia, unspecified Status: Acute Assessment and Plan: due to ESRD and acute illness Epogen with HD hb 10.7 and stable Subjective Date/time seen: 12/26/23 12:01 Interval history: Patient is off sedatives. Not interactive. Son and friend are in the room. Exam Narrative: WDWN male on vent and sedated in NAD skin no rash or subQ nodules head ncat lungs coarse cor reg no rub or gallop abd BS+ nontender and soft ext 1+ bilateral edema. Objective Data Vital Signs Vital Signs: Vital Signs - 24 hr 12/25/23 14:32 12/25/23 14:39 12/25/23 14:40 Temperature Pulse Rate 91 92 92 Respiratory Rate 20 20 Blood Pressure Pulse Oximetry 99 Oxygen Delivery Mechanical Ventilation Fraction of Inspired Oxygen 60 12/25/23 14:01 12/25/23 14:38 12/25/23 13:00 Temperature Pulse Rate 92 92 90 Respiratory Rate Blood Pressure 107/70 107/70 113/67 Pulse Oximetry Oxygen Delivery Fraction of Inspired Oxygen 12/25/23 14:00 12/25/23 14:00 12/25/23 13:00 Temperature 95.3 F L Pulse Rate 91 93 90 Respiratory Rate 22 H 20 Blood Pressure 106/66 110/62 Pulse Oximetry 99 Oxygen Delivery Fraction of Inspired Oxygen 12/25/23 14:00 12/25/23 15:00 12/25/23 15:00 Temperature Pulse Rate 91 93 93 Respiratory Rate 20 20 Blood Pressure 104/65 Pulse Oximetry Oxygen Delivery Fraction of Inspired Oxygen 12/25/23 16:00 12/25/23 17:36 12/25/23 16:46 Temperature 95.4 F L Pulse Rate 93 93 Respiratory Rate 20 Blood Pressure 102/63 Pulse Oximetry 99 99 Oxygen Delivery Mechanical Ventilation Fraction of Inspired Oxygen 50 60 12/25/23 16:36 12/25/23 16:46 12/25/23 17:00 Temperature 95.4 F L Pulse Rate 85 85 85 Respiratory Rate 20 Blood Pressure 98/60 L 99/6
--- NOTE | 2023-12-26 13:07 | PM.PNCARD ---
Progress Note: A&P Assessment and Plan (1) Cardiac arrest: Code(s): I46.9 - Cardiac arrest, cause unspecified Status: Acute Assessment and Plan: s/p PEA arrest likely secondary to noncompliance with hemodialysis resulting hyperkalemia metabolic acidosis. This likely triggered subsequent inferior ST-elevation myocardial infarction. He remains hyperkalemic and in need of hemodialysis. Hemodialysis will be attempted at bedside per nephrology however concern with regards to hemodynamic tolerance pressor support. CRRT is not available at this institution unfortunately. Patient extremely complicated unfortunately unlikely to survive his presentation. Neurologic recovery remains a primary concern is well. (2) ST elevation (STEMI) myocardial infarction: Qualifiers: Involved coronary artery: unspecified coronary artery Qualified Code(s): I21.3 - ST elevation (STEMI) myocardial infarction of unspecified site Code(s): I21.3 - ST elevation (STEMI) myocardial infarction of unspecified site Status: Acute Assessment and Plan: Status post balloon angioplasty to diffusely diseased mid distal RCA with improvement of flow. [employer] distal LAD and circumflex with [id number] collateral filling. Severe ischemic cardiomyopathy EF 25%. Troponin greater than 80. Must continue aspirin 81 mg daily and clopidogrel 75 mg daily given recent intervention in the setting of inferior ST-elevation myocardial infarction. DVT prophylaxis. H&H stable thus far. Mild thrombocytopenia noted. Continue to monitor platelet count closely. Continue atorvastatin 80 mg daily. (3) Ventricular tachycardia: Code(s): I47.20 - Ventricular tachycardia, unspecified Status: Acute Assessment and Plan: Patient is a 48 beat run of ventricular tachycardia overnight spontaneously terminated. He again had 20 run this morning no other significant episodes. Electrolytes better controlled. Discussed with family bedside and with critical care. If recurrent ventricular tachycardia may consider amiodarone yet given severe hepatic dysfunction with shock liver it will be recommended to avoid given toxicity risks if possible. We discussed lidocaine as an alternative particular given ischemic nature of LV dysfunction, however, given concerns with regards to neurologic status, renal failure and hepatic failure continuous lidocaine infusion may contribute to neurotoxicity complicating assessment of his neurologic recovery. Therefore, after discussion with critical care amiodarone may be the best option given the circumstances but we will hold off if possible. Unable to initiate beta-carolann therapy as he remains on pressor support. (4) Shock: Code(s): R57.9 - Shock, unspecified Status: Acute Assessment and Plan: Patient remains in cardiogenic shock with severe LV systolic dysfunction status post inferior ST-elevation myocardial infarction. He has multiorgan system failure with shock liver, respiratory failure requiring intubation, end-stage renal disease, anemia. Prognosis is very poor given multiorgan system failure. Code status discussions in progress with family already with Critical Care. Neuro recovery questionable but critical. Minimal response thus far off sedation which is not encouraging yet will continue to monitor closely. Discussed this at great length with the patient's family at bedside. (5) Shock liver: Code(s): K72.00 - Acute and subacute hepatic failure without coma Status: Acute Assessment and Plan: Severely elevated AST/ALT secondary to shock liver 4357 and 3402, respectively. Very poor prognosis. Will need to continue supportive care and observation. (6) Ischemic cardiomyopathy: Code(s): I25.5 - Ischemic cardiomyopathy Status: Acute Assessment and Plan: Severe LV dysfunction EF 25% subsequent to inferior ST-elevation [place]. monitor volume status, management per hemo
[2023-12-26 15:22] LABS: Vancomycin Random 18.2 ug/mL (10-20)
[2023-12-26 17:01] LABS: Glucose Point of Care 132 mg/dl (65-105)
[2023-12-26] MEDS: ALBUMIN HUMAN 25% 12.5 GM/50ML 50 ML IVPB ×3 (17:59→19:44)
[2023-12-26] MEDS: SODIUM CHLORIDE 0.9% IV 1,000 ML 999 ML IV CONT (18:06)
[2023-12-26] MEDS: HEPARIN SODIUM 1,000 UNITS/ML VIAL 4000 UNITS (19:47)
[2023-12-26] MEDS: CEFEPIME 2 GM/NS 50 ML 2 GM/50 ML BAG IVPB (21:28)
[2023-12-26] MEDS: VANCOMYCIN 750 MG/NS 250 ML 750 MG/250 ML BAG 250 MG IVPB (22:07)
[2023-12-26 23:22] LABS: Glucose Point of Care 96 mg/dl (65-105)
[2023-12-27] VITALS (55 sets, daily range): BP systolic 86–123; BP diastolic 51–101; PULSE 95–124; RESP 14–19; TEMP 35–38.2; O2SAT 91–100; BMI 31.2
[2023-12-27] MEDS: IPRATROPIUM 0.5 MG/ALBUTEROL SULFATE 2.5 MG AMPUL.NEB 3 ML INHALATION ×4 (02:16→20:32)
[2023-12-27 05:09] LABS: Alveolar/Arterial O2 Gradient 139.2 mmHg; Base Excess ABG -0.8 mEq/l (+/-2.0); Fractional Inspired Oxygen 40 %; HCO3 ABG 20.8 mEq/l (22.0-26.0); Oxygen Content ABG 14.3 %vol (16.0-22.0); Oxygen Saturation ABG 98.7 % (95.0-100.0); Oxyhemoglobin 96.6 % THb (90.0-100.0); PO2 ABG 117.3 mmHg (80.0-100.0); PO2 FiO2 Ratio Arterial Blood 2.93 %; Total Hemoglobin 10.4 g/dL (12.0-18.0)
[2023-12-27 05:10] LABS: Modified Allen's Test Pass; Site Drawn ARTLINE; pH ABG 7.537 (7.350-7.450)
[2023-12-27 05:11] LABS: Device VENTILATOR
[2023-12-27 05:12] LABS: Arterial Blood Gas PEEP 5 cmH2O; Arterial Blood Gas Tidal Volume 450 ml; Arterial Blood Gas Vent Mode CMV; Arterial Blood Gas Ventilator rate 18 /MIN
[2023-12-27 06:27] LABS: Hematocrit 31.1 % (42.0-52.0); Hemoglobin 9.6 g/dL (14.0-18.0); Mean Corpuscular HGB Conc 30.9 g/dl (32-36); Mean Corpuscular Hemoglobin 33.8 pg (26-34); Mean Corpuscular Volume 109.5 fl (80-100); Platelet Count Result 106 k/mm3 (150-375); Red Blood Count 2.84 M/mm3 (4.6-6.20); Red Cell Distribution Width 19.6 % (11.5-14.5); White Blood Count 20.3 K/mm3 (4.5-10.0)
[2023-12-27 06:40] LABS: INR 2.4; Prothrombin Time 27.8 Seconds (11.1-14.7)
[2023-12-27 06:42] LABS: Lactic Acid Reflex 2.1 mmol/L (0.7-2.0)
[2023-12-27 06:48] LABS: Albumin Level 3.6 g/dL (3.5-5.1); Alkaline Phosphatase 75 U/L (38-126); Anion Gap 12 mmol/L (8-16); Bilirubin,Total 5.3 mg/dL (0.2-1.3); Blood Urea Nitrogen 52 mg/dL (9-20); Calcium 7.8 mg/dL (8.4-10.2); Carbon Dioxide 27 mmol/L (22-30); Chloride 100 mmol/L (98-107); Estimated CRCL calculation 14 ml/min; Estimated Glomerular Filt Rate 12; Glucose 114 mg/dL (65-110); Magnesium 2.1 mg/dL (1.6-2.3); Phosphorus 4.2 mg/dL (2.5-4.5); Sodium 139 mmol/L (137-145)
[2023-12-27] MEDS: DORNASE ALFA INH SOLN 1 MG/ML 2.5 ML AMP 2.5 MG INHALATION (07:30)
[2023-12-27 07:35] LABS: Alanine Aminotransferase 2198 U/L (6-50); Aspartate Amino Transferase 1855 U/L (17-59)
--- NOTE | 2023-12-27 07:45 | WPDINTPN ---
Progress Note: A&P Assessment and Plan (1) Shock: Code(s): R57.9 - Shock, unspecified Status: Acute Assessment and Plan: Patient in shock likely related to cardiac arrest, STEMI, metabolic acidosis, acute respiratory failure, -cardiogenic versus Infectious -continue Levophed, maintain MAP > 70 mmHg and or SBP > 100 mmHg at all times for adequate end organ perfusion -lactic acid levels trending down and metabolic acidosis improved with dialysis -continue cefepime and vancomycin (12/24) -12/24: Blood cultures with no no growth x2 -12/24: MRSA screen was positive -12/27: Obtain sputum culture as WBC count increasing (2) Acute respiratory failure: Code(s): J96.00 - Acute respiratory failure, unspecified whether with hypoxia or hypercapnia Status: Acute Assessment and Plan: Acute respiratory failure likely related to cardiac arrest, STEMI, metabolic acidosis -12/24: Intubated -currently on CMV mode of ventilation, peep of 5, 40% FiO2 -chest x-ray is morning:Asymmetric right lung haziness. Correlate for asymmetric pulmonary edema versus pneumonia.Minimal left pleural effusion. -ABGs reviewed, decrease rate to 15 -off all sedation 12/24/2023 CT chest abdomen and pelvis: 1. Endotracheal tube tip in the right mainstem bronchus. The tube has reportedly since been withdrawn 2 cm. 2. Small pleural effusions. 3. Polycystic kidney disease. 4. Small volume of ascites (3) Cardiac arrest: Code(s): I46.9 - Cardiac arrest, cause unspecified Status: Acute Assessment and Plan: 12/24: PEA arrest when ambulance picked him up from his house to take him for dialysis, after which the ambulance was diverted to [facility] in [facility] achieved approximately 15 minutes, patient was placed on epinephrine infusion -EKG at the outside hospital showed inferior STEMI, patient was transferred to [facility] ER, epinephrine infusion was switched to Levophed for hypotension/shock -cardiology evaluated the patient at [facility] and was taken to the slabber -continue aspirin, Plavix, atorvastatin -cardiology following the patient -post cardiac arrest encephalopathy, will obtain EEG -prognosis depends on neurological status/improvement (4) ST elevation (STEMI) myocardial infarction: Qualifiers: Involved coronary artery: unspecified coronary artery Qualified Code(s): I21.3 - ST elevation (STEMI) myocardial infarction of unspecified site Code(s): I21.3 - ST elevation (STEMI) myocardial infarction of unspecified site Status: Acute Assessment and Plan: In the slabber patient underwent a PTCA where they could balloon only his RCA, the vessel could not be stented due to being heavily calcified. Total occlusion of the LAD proximally and 80% stenosis in the proximal stented segment of the LAD as well. Total occlusion of circumflex after 1 tiny proximal OM1 around, LV enlargement with severe systolic hypokinesia with an EF of 25%. -Venous and arterial sheath was left in place and patient was transferred to the ICU for further management. -continue aspirin, Plavix, atorvastatin -cardiology following the patient closely (5) End stage renal disease on dialysis: Code(s): N18.6 - End stage renal disease; Z99.2 - Dependence on renal dialysis Status: Acute Assessment and Plan: Patient with end-stage renal disease, missed dialysis x3 sessions -was being taken for dialysis from home in the ambulance when he had a cardiac arrest and the ambulance was diverted to the ER. -nephrology is following the patient -severe metabolic acidosis currently being treated with sodium bicarb IV pushes -12/25: Temporary dialysis catheter was inserted and the left IJ -12/25: Received dialysis without any removal of fluid, patient did tolerate dialysis -12/26: Dialyzed done with 2000 mL and -patient to get dialyzed again today, discussed with Nephrology (6) Hyperkalemia:
[2023-12-27 08:28] LABS: Band Neutrophils Percent 1 % (0-6); Crenated RBC 2+ (NORMAL); Monocytes Percent Manual 1 % (3-9); Neutrophils Absolute Manual 19.48 K/mm3 (1.3-6.7); Neutrophils Percent Manual 95 % (46-73); Nucleated Red Blood Cells 6 %; Ovalocytes 2+ (NORMAL); Tear Drop Cells 1+ (NORMAL); Total Cells Counted 100
[2023-12-27 08:29] LABS: Schistocytes 1+ (NORMAL)
[2023-12-27] MEDS: CLOPIDOGREL BISULFATE 75 MG TABLET PO (08:33)
[2023-12-27] MEDS: PANTOPRAZOLE SODIUM IV 40 MG VIAL IV PUSH ×2 (08:33→20:01)
[2023-12-27] MEDS: ASPIRIN 81 MG CHEWABLE TABLET PO (08:33)
[2023-12-27] MEDS: NOREPINEPHRINE 8 MG/D5W 250 ML 8 MG/250 ML BAG 24.38 MG IV CONT ×2 (08:39→19:50)
[2023-12-27 09:08] LABS: Reflex Lactic Acid Yes or No Add Lactic
[2023-12-27 09:17] LABS: Vancomycin Random 21.1 ug/mL (10-20)
[2023-12-27 10:08] LABS: Lactic Acid 1.7 mmol/L (0.7-2.0)
[2023-12-27 11:51] LABS: Glucose Point of Care 81 mg/dl (65-105)
--- NOTE | 2023-12-27 12:48 | PM.PNCARD ---
Progress Note: A&P Assessment and Plan (1) Cardiac arrest: Code(s): I46.9 - Cardiac arrest, cause unspecified Status: Acute Assessment and Plan: s/p PEA arrest likely secondary to noncompliance with hemodialysis resulting hyperkalemia metabolic acidosis. This likely triggered subsequent inferior ST-elevation myocardial infarction. He remains hyperkalemic and in need of hemodialysis. Hemodialysis will be attempted at bedside per nephrology however concern with regards to hemodynamic tolerance pressor support. CRRT is not available at this institution unfortunately. Patient extremely complicated unfortunately unlikely to survive his presentation. Neurologic recovery remains a primary concern is well. (2) ST elevation (STEMI) myocardial infarction: Qualifiers: Involved coronary artery: unspecified coronary artery Qualified Code(s): I21.3 - ST elevation (STEMI) myocardial infarction of unspecified site Code(s): I21.3 - ST elevation (STEMI) myocardial infarction of unspecified site Status: Acute Assessment and Plan: Status post balloon angioplasty to diffusely diseased mid distal RCA with improvement of flow. NURSE EXAMINER distal LAD and circumflex with [id number] collateral filling. Severe ischemic cardiomyopathy EF 25%. Troponin greater than 80. Must continue aspirin 81 mg daily and clopidogrel 75 mg daily given recent intervention in the setting of inferior ST-elevation myocardial infarction. DVT prophylaxis. H&H stable thus far. Mild thrombocytopenia noted. Continue to monitor platelet count closely. In general, would recommend continuation of atorvastatin 80 mg daily, however, currently on hold given shock liver and elevated LFTs. (3) Ventricular tachycardia: Code(s): I47.20 - Ventricular tachycardia, unspecified Status: Acute Assessment and Plan: Patient has had recurrent runs of ventricular tachycardia longest run 48 beats. No significant recurrence past 24 hours. He remains off AV byron blocking agents as he remains on pressors. Amiodarone has not initiated due to liver failure and stability with regards to recurrent VT. Electrolytes better controlled. Discussed with family bedside and with critical care. If recurrent ventricular tachycardia may consider amiodarone yet given severe hepatic dysfunction with shock liver it will be recommended to avoid given toxicity risks if possible. Patient high risk for recurrence including sudden cardiac secondary to VT and/or VF in severe LV systolic dysfunction and multiorgan system failure. (4) Febrile illness: Code(s): R50.9 - Fever, unspecified Status: Acute Assessment and Plan: Worsening leukocytosis and afebrile this morning. He remains on broad-spectrum antibiotics with vancomycin, cefepime. Blood cultures pending, negative to date thus far. Suspect respiratory source, however, continue to monitor closely. Unfortunately, this even further complicates patient's clinical status and prognosis. (5) Shock: Code(s): R57.9 - Shock, unspecified Status: Acute Assessment and Plan: Patient remains in cardiogenic versus infectious shock with severe LV systolic dysfunction status post inferior ST-elevation myocardial infarction. He has multiorgan system failure with shock liver, respiratory failure requiring intubation, end-stage renal disease, anemia. Prognosis is very poor given multiorgan system failure. Code status discussions in progress with family already with Critical Care. Neuro recovery questionable but critical. Patient remains on pressor support with Levophed. (6) Ischemic cardiomyopathy: Code(s): I25.5 - Ischemic cardiomyopathy Status: Acute Assessment and Plan: Severe LV dysfunction EF 25% subsequent to inferior ST-elevation HI. monitor volume status, management per hemodialysis as tolerates hemodynamically. Unable to optimize guideline directed medical th
[2023-12-27] MEDS: ALBUMIN HUMAN 25% 12.5 GM/50ML 50 ML IVPB (15:01)
[2023-12-27] MEDS: EPOETIN ALFA-EPBX 10,000 UNITS/ML VIAL 10000 UNITS IV PUSH (15:31)
--- NOTE | 2023-12-27 16:05 | PM.PNNEP ---
Progress Note: A&P Assessment and Plan (1) End stage renal disease: Code(s): N18.6 - End stage renal disease Status: Chronic Assessment and Plan: HD yesterday and HD today follow electrolytes, volume status, and clearance follow repeat labs and CXR findings (2) Hyperkalemia: Code(s): E87.5 - Hyperkalemia Status: Acute Assessment and Plan: resolved (3) ST elevation (STEMI) myocardial infarction: Qualifiers: Involved coronary artery: unspecified coronary artery Qualified Code(s): I21.3 - ST elevation (STEMI) myocardial infarction of unspecified site Code(s): I21.3 - ST elevation (STEMI) myocardial infarction of unspecified site Status: Acute Assessment and Plan: as suspected by admission EKG complicated by cardiac arrest s/p cardiac catheterization with findings/interventions noted severe LV systolic dysfunction (EF 25%) noted on catheterization. Cardiology following (4) Cardiac arrest: Code(s): I46.9 - Cardiac arrest, cause unspecified Status: Acute Assessment and Plan: see #3 (5) Acute respiratory failure: Code(s): J96.00 - Acute respiratory failure, unspecified whether with hypoxia or hypercapnia Status: Acute Assessment and Plan: due to cardiac arrest on mechanical ventilation weaning once more stable (6) Shock: Code(s): R57.9 - Shock, unspecified Status: Acute Assessment and Plan: secondary to cardiac arrest cardiogenic versus septic or combo of both possible component of pneumonia? follow culture data on antibiotics still requiring vasopressor support (7) Anemia: Code(s): D64.9 - Anemia, unspecified Status: Acute Assessment and Plan: due to ESRD and acute illness Epogen with HD follow H/H Will continue to follow. Subjective Date/time seen: 12/27/23 16:05 Interval history: Follow-up for end stage renal disease on hemodialysis. Chart reviewed since last seen -- tolerated dialysis yesterday and currently at the time of my visit (seen on HD at 3:55pm); remains intubated and mechanical ventilation; off sedation but not interactive; s/p EEG earlier in the day; still requiring vasopressor support. Exam Narrative: General: ill appearing intubated and on mechanical ventilation Heart: normal S1 and S2; no rub Lungs: coarse breath sounds throughout Abdomen: soft, nontender, nondistended, positive bowel sounds Extremities: no cyanosis or clubbing; 1+ edema Skin: warm and dry Objective Data Vital Signs Vital Signs: Vital Signs Temp Pulse Resp BP Pulse Ox O2 Del Method FiO2 12/27/23 16:00 105 H 103/60 12/27/23 15:45 102 H 104/61 12/27/23 15:30 102 H 105/65 12/27/23 15:18 102 H 105/65 12/27/23 14:00 109 H 110/67 12/27/23 12:00 109 H 107/65 12/27/23 12:00 100.0 F H 108 H 16 99/71 L 100 12/27/23 11:45 100 Mechanical Ventilation 40 12/27/23 10:10 113 H 100 Mechanical Ventilation 40 12/27/23 08:00 40 12/27/23 10:00 102 H 12/27/23 10:06 100.1 F H 112 H 15 96/68 L 100 12/27/23 08:00 100 Mechanical Ventilation 40 12/27/23 08:00 112 H 12/27/23 08:39 110 H 101/58 L 12/27/23 07:40 110 H 15 12/27/23 07:30 109 H 15 12/27/23 07:30 109 H 100 Mechanical Ventilation 40 12/27/23 08:00 100.0 F H 112 H 18 119/101 H 100 12/27/23 06:42 103 H 103/60 12/27/23 04:00 40 12/27/23 04:00 18 Mechanical Ventilation 40 12/27/23 06:00 110 H 12/27/23 04:00 104 H 12/27/23 02:00 105 H 12/27/23 06:00 100.1 F H 110 H 18 101/58 L 100 12/27/23 04:00 100.2 F H 113 H 18 114/97 H 99 12/27/23 02:00 100.2 F H 105 H 18 123/101 H 99 12/27/23 05:13 110 H 95 Mechanical Ventilation 40 12/27/23 02:17 106 H 18 01
--- NOTE | 2023-12-27 16:05 | P.PNNP_ITS ---
Progress Note: A&P Assessment and Plan (1) End stage renal disease: Code(s): N18.6 - End stage renal disease Status: Chronic Assessment and Plan: * HD yesterday and HD today * follow electrolytes, volume status, and clearance * follow repeat labs and CXR findings (2) Hyperkalemia: Code(s): E87.5 - Hyperkalemia Status: Acute Assessment and Plan: * resolved (3) ST elevation (STEMI) myocardial infarction: Qualifiers: Involved coronary artery: unspecified coronary artery Qualified Code(s): I21.3 - ST elevation (STEMI) myocardial infarction of unspecified site Code(s): I21.3 - ST elevation (STEMI) myocardial infarction of unspecified site Status: Acute Assessment and Plan: * as suspected by admission EKG * complicated by cardiac arrest * s/p cardiac catheterization with findings/interventions noted * severe LV systolic dysfunction (EF 25%) noted on catheterization. * Cardiology following (4) Cardiac arrest: Code(s): I46.9 - Cardiac arrest, cause unspecified Status: Acute Assessment and Plan: * see #3 (5) Acute respiratory failure: Code(s): J96.00 - Acute respiratory failure, unspecified whether with hypoxia or hypercapnia Status: Acute Assessment and Plan: * due to cardiac arrest * on mechanical ventilation * weaning once more stable (6) Shock: Code(s): R57.9 - Shock, unspecified Status: Acute Assessment and Plan: * secondary to cardiac arrest * cardiogenic versus septic or combo of both * possible component of pneumonia? * follow culture data * on antibiotics * still requiring vasopressor support (7) Anemia: Code(s): D64.9 - Anemia, unspecified Status: Acute Assessment and Plan: * due to ESRD and acute illness * Epogen with HD * follow H/H Will continue to follow. Subjective Date/time seen: 12/27/23 16:05 Interval history: Follow-up for end stage renal disease on hemodialysis. Chart reviewed since last seen -- tolerated dialysis yesterday and currently at the time of my visit (seen on HD at 3:55pm); remains intubated and mechanical ventilation; off sedation but not interactive; s/p EEG earlier in the day; still requiring vasopressor support. Exam Narrative: General: ill appearing intubated and on mechanical ventilation Heart: normal S1 and S2; no rub Lungs: coarse breath sounds throughout Abdomen: soft, nontender, nondistended, positive bowel sounds Extremities: no cyanosis or clubbing; 1+ edema Skin: warm and dry Objective Data Vital Signs Vital Signs: Vital Signs Temp Pulse Resp BP Pulse Ox O2 Del Method FiO2 12/27/23 16:00 105 H 103/60 12/27/23 15:45 102 H 104/61 12/27/23 15:30 102 H 105/65 12/27/23 15:18 102 H 105/65 12/27/23 14:00 109 H 110/67 12/27/23 12:00 109 H 107/65 12/27/23 12:00 100.0 F H 108 H 16 99/71 L 100 12/27/23 11:45 100 Mechanical Ventilation 40 12/27/23 10:10 113 H 100 Mechanical Ventilation 40 12/27/23 08:00 40 12/27/23 10:00 102 H 12/27/23 10:06 100.1 F H 112 H 15 96/68 L 100 12/27/23 08:00 100 Mechanical Ventilation 40 12/27/23 08:00 112 H
[2023-12-27 18:16] LABS: Glucose Point of Care 104 mg/dl (65-105)
[2023-12-27 18:16] LABS: Glucose Point of Care 26 mg/dl (65-105)
--- NOTE | 2023-12-27 18:17 | PC.NURSE ---
blood sugar was checked on right hand and results were 26; blood sugar was immediately rechecked on left hand and blood sugar was 104; no intervention was taken
[2023-12-27] MEDS: CEFEPIME 1 GM/NS 50 ML 1 GM/50 ML BAG IVPB (19:35)
[2023-12-27] MEDS: VANCOMYCIN 500 MG/NS 100 ML 500 MG/100 ML BAG 100 MG IVPB (20:00)
[2023-12-28] VITALS (36 sets, daily range): BP systolic 69–108; BP diastolic 49–63; PULSE 67–126; RESP 12–19; TEMP 38.3–38.7; O2SAT 60–100
[2023-12-28 00:14] LABS: Glucose Point of Care 142 mg/dl (65-105)
[2023-12-28] MEDS: AMIODARONE 150 MG/D5W 100 ML 150 MG/100 ML BAG 600 MG IV CONT (00:41)
[2023-12-28] MEDS: ACETAMINOPHEN ELIXIR 325 MG/10.15 ML UDC 650 MG PO (00:52)
[2023-12-28] MEDS: AMIODARONE 360 MG/D5W 200 ML 360 MG/200 ML BAG 33.33 MG IV CONT ×2 (00:56→05:47)
[2023-12-28] MEDS: IPRATROPIUM 0.5 MG/ALBUTEROL SULFATE 2.5 MG AMPUL.NEB 3 ML INHALATION ×2 (01:33→07:33)
[2023-12-28] MEDS: VASOPRESSIN INJ 100 UNITS in DEXTROSE 5% 95 ML IV CONT (01:51)
[2023-12-28] MEDS: NOREPINEPHRINE 8 MG/D5W 250 ML 8 MG/250 ML BAG 56.25 MG IV CONT (03:23)
[2023-12-28 05:23] LABS: Hematocrit 32.6 % (42.0-52.0); Hemoglobin 10.2 g/dL (14.0-18.0); Immature Platelet Fraction Pct 9.4 % (0.9-11.2); Mean Corpuscular HGB Conc 31.3 g/dl (32-36); Mean Corpuscular Hemoglobin 34.3 pg (26-34); Mean Corpuscular Volume 109.8 fl (80-100); Mean Platelet Volume 12.4 fl (7.4-10.4); Platelet Count Result 88 k/mm3 (150-375); Red Blood Count 2.97 M/mm3 (4.6-6.20); Red Cell Distribution Width 20.2 % (11.5-14.5); White Blood Count 22.6 K/mm3 (4.5-10.0)
[2023-12-28 05:27] LABS: INR 2.1
[2023-12-28 05:28] LABS: Partial Thromboplastin Time 43.6 SECONDS (22.3-36.8)
[2023-12-28 05:31] LABS: Alveolar/Arterial O2 Gradient 122.7 mmHg; Base Excess ABG -4.8 mEq/l (+/-2.0); Fractional Inspired Oxygen 40 %; HCO3 ABG 18.3 mEq/l (22.0-26.0); Methemoglobin ABG 0.3 %THb (0-1.5); Oxygen Content ABG 15.1 %vol (16.0-22.0); Oxygen Saturation ABG 98.7 % (95.0-100.0); Oxyhemoglobin 97.1 % THb (90.0-100.0); PCO2 ABG 27.7 mmHg (35.0-45.0); PO2 ABG 130.6 mmHg (80.0-100.0); PO2 FiO2 Ratio Arterial Blood 3.27 %; Reduced Hemoglobin 1.6 %THb (0-5.0); Total Hemoglobin 10.9 g/dL (12.0-18.0); pH ABG 7.437 (7.350-7.450)
[2023-12-28 05:32] LABS: Device VENTILATOR; Site Drawn ARTLINE
[2023-12-28 05:33] LABS: Arterial Blood Gas PEEP 5 cmH2O; Arterial Blood Gas Tidal Volume 450 ml; Arterial Blood Gas Vent Mode CMV; Arterial Blood Gas Ventilator rate 15 /MIN
[2023-12-28 05:56] LABS: Lactic Acid Reflex 7.9 mmol/L (0.7-2.0)
[2023-12-28 06:12] LABS: Albumin Level 4.1 g/dL (3.5-5.1); Alkaline Phosphatase 85 U/L (38-126); Anion Gap 19 mmol/L (8-16); Aspartate Amino Transferase 712 U/L (17-59); Bilirubin,Total 6.9 mg/dL (0.2-1.3); Blood Urea Nitrogen 37 mg/dL (9-20); Calcium 8.9 mg/dL (8.4-10.2); Carbon Dioxide 20 mmol/L (22-30); Chloride 98 mmol/L (98-107); Estimated CRCL calculation 18 ml/min; Estimated Glomerular Filt Rate 17; Glucose 196 mg/dL (65-110); Magnesium 2.3 mg/dL (1.6-2.3); Sodium 137 mmol/L (137-145)
[2023-12-28 06:20] LABS: Band Neutrophils Percent 3 % (0-6); Metamyelocytes Percent 2 %; Monocytes Absolute Manual 0.67 K/mm3 (0.1-0.90); Monocytes Percent Manual 3 % (3-9); Neutrophils Absolute Manual 20.56 K/mm3 (1.3-6.7); Neutrophils Percent Manual 88 % (46-73); Nucleated Red Blood Cells 8 %; Platelet Estimate Decreased (Adequate); Total Cells Counted 100
[2023-12-28 06:21] LABS: Burr Cells 2+ (NORMAL); Ovalocytes 2+ (NORMAL); Polychromasia 1+ (NORMAL); Schistocytes None Seen (NORMAL)
[2023-12-28 06:29] LABS: Alanine Aminotransferase 1381 U/L (6-50)
[2023-12-28] MEDS: ALBUMIN HUMAN 25% 12.5 GM/50ML 50 ML IVPB (06:30)
[2023-12-28] MEDS: SODIUM CHLORIDE 0.9% IV 500 ML 999 ML IV CONT (06:38)
--- NOTE | 2023-12-28 07:10 | PC.NURSE ---
Oxygen saturation no longer readable per SpO2 device despite changing position. Heart rate noted to be dropping. Patient's BP quickly dropping. Pressor lines checked and confirmed to be patent and infusing. Dr. Foster called and notified. Orders to increase norepinephrine max and to initiate epinephrine drip received. Abhilash present at bedside notified of decline in patient condition.
[2023-12-28] MEDS: DORNASE ALFA INH SOLN 1 MG/ML 2.5 ML AMP 2.5 MG INHALATION (07:33)
[2023-12-28] MEDS: EPINEPHrine INJ 1 MG in DEXTROSE 5% IN WATER 250 ML 150.6 MG IV CONT (07:36)
[2023-12-28] MEDS: NOREPINEPHRINE 8 MG/D5W 250 ML 8 MG/250 ML BAG 82.5 MG IV CONT (07:37)
[2023-12-28 08:12] LABS: Reflex Lactic Acid Yes or No Add Lactic
--- NOTE | 2023-12-28 08:29 | WPDINTPN ---
Progress Note: A&P Assessment and Plan (1) Shock: Code(s): R57.9 - Shock, unspecified Status: Acute Assessment and Plan: Patient in shock likely related to cardiac arrest, STEMI, metabolic acidosis, acute respiratory failure, -cardiogenic and septic -patient on Levophed epinephrine Maury-Synephrine and vasopressin -on cefepime and vancomycin (12/24) -12/24: Blood cultures with no no growth x2 -12/24: MRSA screen was positive -12/27: Obtain sputum culture as WBC count increasing (2) Acute respiratory failure: Code(s): J96.00 - Acute respiratory failure, unspecified whether with hypoxia or hypercapnia Status: Acute Assessment and Plan: Acute respiratory failure likely related to cardiac arrest, STEMI, metabolic acidosis -12/24: Intubated -currently on CMV mode of ventilation, peep of 5, 40% FiO2 -chest x-ray reviewed 12/24/2023 CT chest abdomen and pelvis: 1. Endotracheal tube tip in the right mainstem bronchus. The tube has reportedly since been withdrawn 2 cm. 2. Small pleural effusions. 3. Polycystic kidney disease. 4. Small volume of ascites (3) Cardiac arrest: Code(s): I46.9 - Cardiac arrest, cause unspecified Status: Acute Assessment and Plan: 12/24: PEA arrest when ambulance picked him up from his house to take him for dialysis, after which the ambulance was diverted to [facility] achieved approximately 15 minutes, patient was placed on epinephrine infusion -EKG at the outside hospital showed inferior STEMI, patient was transferred to [facility] ER, epinephrine infusion was switched to Levophed for hypotension/shock -cardiology evaluated the patient at [place] ER and was taken to the labor economist -on aspirin, Plavix, atorvastatin -cardiology following the patient -post cardiac arrest encephalopathy, EEG pending -prognosis depends on neurological status/improvement (4) ST elevation (STEMI) myocardial infarction: Qualifiers: Involved coronary artery: unspecified coronary artery Qualified Code(s): I21.3 - ST elevation (STEMI) myocardial infarction of unspecified site Code(s): I21.3 - ST elevation (STEMI) myocardial infarction of unspecified site Status: Acute Assessment and Plan: In the labor economist patient underwent a PTCA where they could balloon only his RCA, the vessel could not be stented due to being heavily calcified. Total occlusion of the LAD proximally and 80% stenosis in the proximal stented segment of the LAD as well. Total occlusion of circumflex after 1 tiny proximal OM1 around, LV enlargement with severe systolic hypokinesia with an EF of 25%. -Venous and arterial sheath was left in place and patient was transferred to the ICU for further management. -continue aspirin, Plavix, atorvastatin -cardiology following the patient closely (5) End stage renal disease on dialysis: Code(s): N18.6 - End stage renal disease; Z99.2 - Dependence on renal dialysis Status: Acute Assessment and Plan: Patient with end-stage renal disease, missed dialysis x3 sessions -was being taken for dialysis from home in the ambulance when he had a cardiac arrest and the ambulance was diverted to the ER. -nephrology is following the patient -severe metabolic acidosis currently being treated with sodium bicarb IV pushes -12/25: Temporary dialysis catheter was inserted and the left IJ -12/25: Received dialysis without any removal of fluid, patient did tolerate dialysis -12/26: Dialyzed done with 2000 mL and Nephrology following (6) Hyperkalemia: Code(s): E87.5 - Hyperkalemia Status: Acute Assessment and Plan: Hyperkalemia on admission, likely related to end-stage renal disease, metabolic acidosis, shock with aggressively treat hyperkalemia with Lokelma, insulin and D50, sodium bicarbonate, albuterol nebulizer -improved with dialysis (7) Metabolic acidosis: Code(s): E87.20 - Aci
--- NOTE | 2023-12-29 09:10 | WPDNEUROLOGY ---
Neurology EEG Report General Information Date of Study: 12/27/23 TEST eeg DIAGNOSIS status post cardiac arrest with encephalopathy CONDITION OF RECORDING coma toes EEG NUMBER [id number] CLINICAL HISTORY patient had a cardiac arrest on his way to dialysis couple of days ago. Has been off sedation since yesterday and remains unresponsive and on ventilator. EEG DESCRIPTION Background rhythm consists of low to medium voltage 3 to 4 hertz per 2nd delta admixed with low-voltage to medium voltage 5 to 7 hertz per 2nd theta activity. Photic stimulation not done. Hyperventilation not done. Non paroxysmal. Nonfocal. Nonlateralizing. IMPRESSION Abnormal record due to the absence of the normal background rhythm and due to the presence of bihemispheric slow activity. These abnormalities are suggestive of underlying organic or metabolic encephalopathy there is no evidence of clinical seizure during this tracing. Clinical correlation recommended
[2023-12-30 13:53] LABS: Arterial Blood Gas PEEP 5 cmH2O; Arterial Blood Gas Tidal Volume 500 ml; Arterial Blood Gas Vent Mode CMV; Arterial Blood Gas Ventilator rate 16 /MIN
--- NOTE | 2024-02-07 12:16 | P.DN_ITS ---
Discharge Summary Date and Time Date of : 12/28/23 Time of : 07:45 Provider Pronounced By: Dr. Hill Probable Cause of Probable Cause of : Severe ischemic cardiomyopathy Summary Hospital Course: This is a 78-year-old patient with coronary artery disease end-stage renal disease on hemodialysis who was transferred to [facility] as an emergency from [place] following resuscitation from cardiac arrest. Following resuscitation ECG was felt to show evidence of acute inferior ST-elevation ND. he was also significantly hyperkalemic as apparently he was not dialyzed on schedule. The patient in the warehouse general laborer found to have subtotal stenosis of the distal right coronary artery and occlusion of the LAD after assess small diagonal branch and occlusion of his OM circumflex as well. Left ventricular systolic function was profoundly depressed. Emergency PTCA was performed to the day culprit RCA lesion restoring JOSE LUIS 3 flow in the vessel the patient's prognosis was felt to be very poor given his underlying heart disease and very poor LV function. He was hospitalized in the ICU where he was supported vigorously for the next several days. He once again arrested and lost his pulses on the day of /discharge and was pronounced by the grey roll worker. Additional Data Confirmation of as documented by pronouncing clinician: Pupillary Reflex, Palpable Pulses, Response to Stimuli, Heart Tones and Breath Sounds Name of Provider Notified: Dr. Conley Time Provider Notified: 07:50 Family Requests Autopsy: No Database Administration Associate Notified: Yes Date [facility] Notified of : 12/28/23 Time [facility] Notified of : 08:05
== END 2023-12-28 07:45 | disposition expired | DRG 250 ==
LOC: ANHED 13:57 → ANHICU 14:15
PROVIDERS: Internal Medicine; Internal Medicine Nephrology; Admitting Provider Specialist; Emergency Provider Emergency Medicine; PCP Internal Medicine; Visit Provider Internal Medicine
PROC: 4A023N7 Measurement of Cardiac Sampling and Pressure, Left Heart, Percutaneous Approach (ICD-10-PCS; CPT 93452; principal; 2023-12-24 14:10)
PROC: 02703ZZ Dilation of Coronary Artery, One Artery, Percutaneous Approach (ICD-10-PCS; CPT 92920; 2023-12-24 14:10)
DX: I21.19 ST elevation (STEMI) myocardial infarction involving other coronary artery of inferior wall (principal); A41.9 Sepsis, unspecified organism; J96.00 Acute respiratory failure, unspecified whether with hypoxia or hypercapnia; N18.6 End stage renal disease; K72.00 Acute and subacute hepatic failure without coma; R65.21 Severe sepsis with septic shock; I13.2 Hypertensive heart and chronic kidney disease with heart failure and with stage 5 chronic kidney disease, or end stage renal disease; Q61.3 Polycystic kidney, unspecified; E87.20 Acidosis, unspecified; D68.9 Coagulation defect, unspecified; I50.22 Chronic systolic (congestive) heart failure; I47.20 Ventricular tachycardia, unspecified; G93.40 Encephalopathy, unspecified; I50.9 Heart failure, unspecified; I25.119 Atherosclerotic heart disease of native coronary artery with unspecified angina pectoris; Z95.5 Presence of coronary angioplasty implant and graft; Z99.2 Dependence on renal dialysis; Z91.158 Patient's noncompliance with renal dialysis for other reason; E87.5 Hyperkalemia; R57.0 Cardiogenic shock; M06.9 Rheumatoid arthritis, unspecified; G47.33 Obstructive sleep apnea (adult) (pediatric); E78.5 Hyperlipidemia, unspecified; I25.5 Ischemic cardiomyopathy; D64.9 Anemia, unspecified; D63.1 Anemia in chronic kidney disease; D69.6 Thrombocytopenia, unspecified
CPT/HCPCS: 36415; 36600; 70450; 71045; 71250; 74176; 76705; 80053; 80074; 80202; 82140; 82375; 82805; 82948; 83050; 83605; 83735; 84100; 84484; 85025; 85055; 85610; 85730; 86706; 87070; 87186; 87205; 87340; 87641; 92920; 93005; 93458; 94002; 94003; 94640; 95816; 99291; A9270; C1725; C1751; C1769; C1887; C1894; C9113; G0257; J0171; J0282; J0583; J0692; J1644; J1815; J2250; J2371; J3370; J3430; J7030; J7040; J7060; P9047; Q5105